=== PATIENT | male | born 1950 | race Hispanic/Latino ===

== ENCOUNTER 2017-08-24 18:54 | Observation (INO) | payer MEDICARE ==
[~2017-08-24 18:54] MED LIST: ISOVUE-370 76%-LOCM 1 ML ONE
[2017-08-24 19:53] LABS: Bilirubin Negative (Negative); Blood, Urine Negative (Negative); Glucose, Urine (Dipstick) >=1000 mg/dL (Negative); Ketone, Urine Negative (Negative); Nitrite Negative (Negative); Protein, Urine (Dipstick) Negative (Neg-Trace)
[2017-08-24 19:55] LABS: Bacteria/HPF None Seen HPF (None Seen); Hyaline Casts/LPF 0-3 HYALINE CAST LPF (0-3 Hyaline); RBC/HPF 0-3 HPF (0-3); Squamous Epithelial 0-3 HPF (0-3)
[2017-08-24 19:55] LABS: #Eosinphils 0.1 thou/uL (0.0-0.7); #Lymphocytes 1.7 thou/uL (1.20-3.40); #Monocytes 0.5 thou/uL (0.11-0.59); %Basophils 0.4 % (0.0-1.0); %Eosinophils 1.1 % (0.0-10.0); %Lymphocytes 23.4 % (21.0-51.0); %Monocytes 7.1 % (0.0-10.0); Hematocrit 49.2 % (42.0-52.0); Mean Platelet Volume 6.6 fL (7.4-10.4); Red Blood Cell (RBC) Count 5.12 mill/uL (4.70-6.10); White Blood Cell (WBC) Count 7.4 thou/uL (4.8-10.8)
[2017-08-24 20:20] LABS: ALT (SGPT) 10 U/L (8-55); AST (SGOT) 11 U/L (5-34); Alkaline Phosphatase 118 U/L (40-150); Anion Gap 13 mmol/L (10-20); BUN (Urea Nitrogen) 9 mg/dL (8.4-25.7); Bilirubin, Total 0.5 mg/dL (0.2-1.2); CK (CPK) 83 U/L (30-200); Calc. Creatinine Clearance 0 mL/min (70-130); Calcium 9.1 mg/dL (7.8-10.44); Carbon Dioxide 22 mmol/L (23-31); Chloride 105 mmol/L (98-107); Estimated GFR-MDRD 87; Globulin 2.8 g/dL (2.4-3.5); Lipase 17 U/L (8-78); Protein, Total 6.3 g/dL (5.8-8.1)
[2017-08-24 20:24] LABS: Troponin I 0.035 ng/mL (< 0.028)
--- NOTE | 2017-08-24 20:54 | RAD ---
ONE VIEW CHEST: History: Cough. Comparison: 05-02-17 FINDINGS: Atherosclerosis of the aorta. Normal cardiac silhouette. The pulmonary vessels and hilum are normal. Costophrenic angles are clear. Chronic change in the lung parenchymal noted with subsegmental atele ctasis and scarring. No masses or consolidation. No pneumothorax. Chronic changes to the left should er. IMPRESSION: No acute cardiopulmonary process. POS: DARIA
[2017-08-24] MEDS ORDERED: Ondansetron HCl/PF 4 MG/2 ML Vial IVP PRN ×2 (22:39→23:35)
[2017-08-24] MEDS ORDERED: Sodium Chloride 0.9% 1,000 ML IV SCH (22:39)
[2017-08-24] MEDS ORDERED: Acetaminophen 325 MG TAB PO PRN (22:39)
[2017-08-24] MEDS ORDERED: Ondansetron ODT 4 MG TAB SL PRN (22:39)
--- NOTE | 2017-08-24 22:46 | CT ---
NONCONTRAST HEAD CT: History: Dizziness. Patient fell onto his head two weeks ago. Comparison: 06-07-17 Technique: Noncontrast head CT is performed from skull base to skull vertex. FINDINGS: No parenchymal hemorrhage. No extraaxial hematoma. No midline shift. Basilar cisterns are patent. Ag e appropriate brain volume. Cortical ferrera white matter differentiation is preserved. Ventricles and sulci are patent and symmetric. White matter hypodensity due to chronic small vessel ischemic change are noted. Stable gliotic and m alacic change involving the left occipital parietal region. Stable configuration of ventricular system. Atherosclerosis of cavernous carotid arteries and vertebral arteries is noted. Adequate aeration of the sinuses and right mastoid air cells. Stable partial sclerosis of the left m astoid air cells. Intact calvarium. IMPRESSION: No acute intracranial process. POS: DARIA
--- NOTE | 2017-08-24 22:57 | CT ---
ABDOMEN CT WITH CONTRAST PELVIC CT WITH CONTRAST: Comparison: 06-07-17 History: Dizziness, patient fell two weeks ago. Abdominal pain, worsening today. Technique: Abdomen and pelvic CT is performed with IV contrast. Coronal reformatted images are submi tted for interpretation. Oral contrast was not administered. FINDINGS: Abdomen CT: Chronic changes in the lung bases. Nonspecific 5 mm nodule in the left lower lobe, possi adarsh present on the examination from May 2017. Nodule better appreciated on the current exam. Hear t size is within normal limits. No significant pericardial fluid. Mild elongation of the descending thoracic aorta and abdominal aorta. There is atherosclerosis. No aneurysm. No periaortic fat strandi ng. Symmetric attenuation of the psoas muscles. No gastrohepatic retrocrural or pericardial lymphadenopathy. No mesenteric mass, lymphadenopathy, free air or free fluid. Gallbladder is surgically absent. Visualized portal vein is patent. Note, evaluation is limited in arterial phase imaging. Liver, spleen, pancreas, and adrenal glands have essentially appropriate arterial phase imaging. Sym metric enhancement of the kidneys. Bilaterally, no obstructive uropathy. No enteric mass, lymphadenopathy, free air or free fluid. Limited evaluation of the alimentary canal due to lack of contrast. There are a few nonspecific flui d filled loops of small bowel with mild mucosal prominence. No definite evidence of bowel obstructio n. Fecalization of the terminal ileum likely due to incompetent ileocecal valve. No associated dilat ation. Appendix has a normal appearance. Scattered fecal material in a nondistended, nondilated colo n. Occasional diverticulum. No evidence of diverticulitis. Pelvic CT: No mass, lymphadenopathy, free air or free fluid. Urinary bladder is unremarkable. Prior fusion hardware is noted. There are no lytic or blastic lesions in the osseous structures. Bone graft site in the right iliac wing is noted. Visualized bony thoracic fractures are not appreci ated. IMPRESSION: 1. No acute abnormality in the abdomen or pelvis. 2. 5 mm nodule in the left lower lobe, better demonstrated on the current examination. POS: DARIA
[2017-08-24 23:13] LABS: Troponin I 0.049 ng/mL (< 0.028)
[2017-08-24 23:21] VITALS: BMI 24.0
[2017-08-24] MEDS ORDERED: Temazepam 15 MG CAP PO PRN (23:35)
[2017-08-24] MEDS ORDERED: Ondansetron ODT 4 MG TAB PO PRN (23:35)
[2017-08-25 02:34] LABS: Hematocrit 46.2 % (42.0-52.0); Mean Platelet Volume 6.6 fL (7.4-10.4); Neutrophil 60 % (42-75); Reactive Lymphocytes 4 % (0-10); Red Blood Cell (RBC) Count 4.82 mill/uL (4.70-6.10); White Blood Cell (WBC) Count 6.3 thou/uL (4.8-10.8)
[2017-08-25 02:44] LABS: Troponin I 0.064 ng/mL (< 0.028)
[2017-08-25 02:55] LABS: Anion Gap 11 mmol/L (10-20); BUN (Urea Nitrogen) 9 mg/dL (8.4-25.7); Calc. Creatinine Clearance 82 mL/min (70-130); Calcium 8.9 mg/dL (7.8-10.44); Carbon Dioxide 23 mmol/L (23-31); Chloride 106 mmol/L (98-107); Estimated GFR-MDRD 87; Magnesium 1.5 mg/dL (1.6-2.6)
--- NOTE | 2017-08-25 03:01 | HP ---
DATE OF ADMISSION: 08/24/2017 PRIMARY CARE PROVIDER: Brandi Leiva DO. CHIEF COMPLAINT: Dizziness. HISTORY OF PRESENT ILLNESS: This is a 67-year-old male who presents to [facility] complaining of dizziness, which began approximately 1830 hours on the date of admissi on. The patient states that he was sitting up in bed when he felt like he was listing or falling to the right. The patient states he had some dizziness and vertigo sensations at the time and had rep ositioned himself as he has undergone a right qonug-kwk-jxwi amputation in 2013. The patient states that he has limited mobility, but does use a prosthesis device with a rolling walker or wheelchair for long distance ambulation. The patient relates a recent history of falls with closed head injury requiring admission as recently as 04/2017. The patient sustained an acute intraparenchymal hemorr manjinder due to the closed head injury; however, no specific intervention was recommended. The patient was observed and released home. The patient also underwent evaluation in late 02/2017 for chest stephanie n, undergoing a Cardiolite stress test showing negative findings. The patient also had complained o f abdominal pain during this admission, undergoing upper endoscopy and colonoscopy without specific findings. The patient denies any specific unilateral pain, difficulty with speech or visual disturb ance. The patient denied any specific change to his chronic medication regimen and states he has be en compliant. The patient does states he state that he lives independently, receiving a nursing vis it approximately one time per week. The patient denies undergoing any recent physical therapy. In the emergency room, the patient underwent extensive evaluation including CT of the abdomen and pelvi s showing no acute intraabdominal process. Incidental 5 mm nodule in the left lower lobe noted. Po rtable chest x-ray showed no acute infiltrates and CT of the brain showed no acute intracranial proc ess. The patient was referred to the Hospitalist Service for evaluation. PAST MEDICAL HISTORY: 1. Sensorineural deafness. 2. Peripheral vascular disease. 3. History of gangrene of the right lower extremity status post right fjqyw-ndo-yvlr amputation. 4. Hypertension. 5. Gastroesophageal reflux disease. 6. Diabetes mellitus, type 2. 7. Benign prostatic hyperplasia. 8. Chronic low back pain. 9. History of falls. 10. Status post intracranial hemorrhage, status post mechanical fall with closed head injury. 11. Anxiety/depression. 12. History of biliary pancreatitis. PAST SURGICAL HISTORY: 1. Status post right irnjj-qax-mlqo amputation in 2014. 2. Status post back surgery x4, L5-S1 distribution. 3. Status post cholecystectomy. 4. Chronic abdominal pain. 5. Status post cerebrovascular accident. CURRENT MEDICATIONS: 1. Atenolol 25 mg one tab p.o. daily. 2. Lipitor 20 mg one tablet p.o. daily. 3. NPH insulin 14 units subcutaneously b.i.d. 4. Lisinopril 5 mg 1 tablet p.o. daily. 5. Sertraline 100 mg 1 tab p.o. daily. 6. Flomax 0.4 mg p.o. daily. 7. Metformin 1000 mg p.o. daily. ALLERGIES: No known drug allergies. FAMILY HISTORY: No inheritable diseases per patient report. SOCIAL HISTORY: The patient lives independently in the [place], [place] area. Receives home visitin g nurse approximately one time per week. Ambulatory with use of a rolling walker and right lower ex tremity prosthesis. Long distance mobilization with wheelchair. No alcohol or illicit drug use. S mokes up to half a pack of cigarettes daily. REVIEW OF SYSTEMS: The following complete review of systems was negative, unless otherwise mentione d in the HPI or below: Constitutional: Weight loss or gain, ability to conduct usual activities. Skin: Rash, itching. Eyes: Double vision, pain. ENT/Mouth: Nose bleeding, neck stiffness, pain, tenderness. Cardiovascular: Palpitations, dyspnea on exertion, orthopnea. Respiratory: Shortness of breath, wheezing, cough, hemoptysis, fever or night sweats. Gastrointestinal: Poor appetite, abdominal pain, heartburn, nausea, vomiting, constipation, or diar coby. Genitourinary: Urgency, frequency, dysuria, nocturia. Musculoskeletal: Pain, swelling. Neurologic/Psychiatric: Anxiety, depression. Allergy/Immunologic: Skin rash, bleeding tendency. PHYSICAL EXAMINATION: VITAL SIGNS: On admission, blood pressure 108/64, pulse 56, respiratory rate 18, temperature 97.9 d egrees Fahrenheit, O2 saturation is 97% on room air. GENERAL APPEARANCE: This is a 67-year-old male, alert and oriented x3, pleasant, in no acute distre ss. HEENT: Pupils are equal, round, and reactive to light and accommodation. Extraocular muscles are i ntact. No scleral icterus, no conjunctival injection. Nares patent. OP is clear. Teeth in fair r epair. NECK: Supple, no cervical adenopathy, no thyromegaly, no carotid bruits, no JVD appreciated. Cervi roberto spine with full active and passive range of motion. CHEST: Lungs are clear to auscultation bilaterally. CARDIOVASCULAR: S1, S2, without noted murmur. ABDOMEN: Rounded, soft, nontender, nondistended. Bowel sounds are positive in all four quadrants. There is no hepatosplenomegaly, no abdominal bruits, no rebound or guarding appreciated. EXTREMITIES: Right bqaiv-lgj-gxki amputation with stump intact. Left lower extremity with pulses p alpable distally at the dorsalis pedis, posterior tibial, and popliteal arteries bilaterally. Capil glendy refill less than 2 seconds. NEUROLOGIC: Cranial nerves II-XII are grossly intact. Intention tremor noted on the right hand. N o other gross focal deficits appreciated. The patient not observed ambulatory during this exam. PERTINENT LABORATORY AND X-RAY FINDINGS: Sodium 136, potassium 3.9, chloride 105, CO2 of 22, BUN 9, creatinine 0.87, estimated GFR of 87, glucose 206, calcium 9.1. LFTs within normal limits. Tropon in I ranged between 0.035 to 0.049, albumin 3.5, lipase 17. CBC showed a white blood cell count of 7.4, hemoglobin 16.6, hematocrit 49.2, MCV at 96, platelet count 143 with normal differential. Urin alysis shows greater than 1000 glucose, positive leukocyte esterase with 7-10 wbc's per high power f ield. CT of the abdomen and pelvis dated 08/24/2017 showed no acute intraabdominal process. A 5-mm nodule in the left lower lobe incidental finding. Portable chest x-ray dated 08/24/2017 showed no acute cardiopulmonary process. CT of the brain without contrast dated 08/24/2017 showed no acute in tracranial process. EKG dated 08/24/2017 by my interpretation shows sinus mechanism with heart rate s in the 60s. Normal R-wave progression noted in the precordial leads. Left axis deviation noted. No acute ST-T wave changes appreciated. ASSESSMENT AND PLAN: 1. Question of vertigo. The patient will be placed on observation status with telemetry. Exact et iology unclear. Current vital signs with mild hypotension. We will continue to monitor blood press ure and heart rate trend. Screening metabolic workup was essentially unrevealing except for mild el evated troponin I. We will obtain PT evaluation in the a.m. Check carotid Doppler study in the a.m . 2. Question of hypotension. We will hold home antihypertensive regimen and monitor clinical respon se. 3. Diabetes mellitus, type 2, insulin requiring. Continue serial Accu-Cheks a.c. and at bedtime. Insulin sliding scale for reflexive coverage. Serial Accu-Cheks. ADA diet. 4. Abdominal pain. Appears chronic with CT of the abdomen and pelvis, unrevealing. Continue sympt omatic and supportive management. Hold metformin. 5. Elevated troponin I. Suspect demand ischemia with review of the electronic medical record showi ng elevated troponin I in 02/2017. The patient underwent Cardiolite stress testing in 03/11/2017 sh owing no acute infarct or ischemia. Calculated ejection fraction of 50%. 6. Prophylaxis. Sequential compression devices while in bed. General fall precautions. PT evalua tion pending. Pepcid 20 mg p.o. b.i.d. 7. Code status is FULL. Surrogate medical decision maker is patient's sister.
[2017-08-25] MEDS: Tamsulosin HCl 0.4 MG CAP PO SCH (08:21)
[2017-08-25] MEDS: Famotidine 20 MG TAB PO SCH ×2 (08:21→20:01)
[2017-08-25] MEDS: Acetaminophen 500 MG TAB PO PRN ×2 (08:23→14:04)
--- NOTE | 2017-08-25 08:31 | ULT ---
CAROTID ARTERIAL DOPPLER ULTRASOUND: DATE: 08/25/17. COMPARISON: None. HISTORY: Vertigo, assess for carotid arterial disease. TECHNIQUE: Multiplanar, ferrera scale, sonographic imaging of the arterial structures of the neck obtained with co ella flow and spectral analysis. FINDINGS: There is prominent multifocal calcified plaque seen throughout the imaged CCA, ICA, and ECA bilatera lly. VESSEL PSV(CM/S) EDV(CM/S) Right CCA 87 16 Right ICA 90 19 Right ECA 96 16 Left CCA 52 9 Left ICA 92 20 Left ECA 150 22 ICA/CCA ratio is 1.0 on the right and 1.8 on the left. Antegrade blood flow is noted within the carotid and vertebral system bilaterally. IMPRESSION: Extensive multifocal calcified plaque is seen throughout the carotid arterial structures bilaterally . No elevated velocities are documented within either common carotid artery or internal carotid art gian. POS: DARIA
[2017-08-25] MEDS: Insulin NPH/Reg Insulin Hm 300 UNITS/3 ML VIAL SC SCH ×2 (09:09→19:45)
[2017-08-25] MEDS ORDERED: cefTRIAXone\\ROCEPHIN 1 GM in Sodium Chloride 0.9% 100 ML IVPB SCH (10:30)
[2017-08-25] MEDS ORDERED: Metoprolol Tartrate 25 MG TAB PO SCH (11:00)
[2017-08-25] MEDS ORDERED: Atorvastatin Calcium 20 MG TAB PO SCH (11:00)
[2017-08-25] MEDS ORDERED: Nystatin Powder 15 GM BOT TOP SCH (11:00)
[2017-08-25] MEDS ORDERED: Fluconazole 100 MG TAB PO SCH (11:00)
[2017-08-25] MEDS ORDERED: Lisinopril 2.5 MG TAB PO SCH (11:00)
[2017-08-25] MEDS: cefTRIAXone\\ROCEPHIN 1 GM, Syringe 0.4 ML in Sterile Water 9.6 ML SLOW IVP SCH (14:05)
--- NOTE | 2017-08-25 14:54 | PDOC.PN ---
- Subjective Encounter Start Date: 08/25/17 Encounter Start Time: 14:52 feels better dizziness better still has rt hand tremor some nausea abd pain better - Objective Resuscitation Status: Resuscitation Status FULL:Full Resuscitation MAR Reviewed: Yes Vital Signs & Weight: Vital Signs (12 hours) Temp Pulse Pulse Resp BP BP BP 08/25/17 11:53 67 151/81 H 08/25/17 10:33 98.1 F 67 20 131/66 08/25/17 10:02 64 131/66 08/25/17 08:00 98.2 F 70 20 08/25/17 07:05 98.2 F 70 20 147/65 H 08/25/17 04:00 98.0 F 62 16 128/70 Pulse Ox Pulse Ox 08/25/17 11:53 08/25/17 10:33 99 08/25/17 10:02 98 08/25/17 08:00 08/25/17 07:05 98 08/25/17 04:00 99 Weight Weight 158 lb I&O: 08/24/17 08/25/17 08/26/17 06:59 06:59 06:59 Intake Total 360 480 Output Total 350 Balance 10 480 Result Diagrams: 08/25/17 02:00 08/25/17 02:00 Additional Labs: Accuchecks 08/25/17 10:35 POC Glucose 230 H Phys Exam - Physical Examination Constitutional: NAD HEENT: PERRLA Neck: no JVD Respiratory: no wheezing Cardiovascular: no significant murmur Gastrointestinal: soft, no distention Musculoskeletal: pulses present rt aka Neurological: normal sensation hard of hearing Psychiatric: A&O x 3 Dx/Plan (1) Dizziness Code(s): R42 - DIZZINESS AND GIDDINESS Status: Acute Comment: r/o cva (2) UTI (urinary tract infection) Status: Acute (3) Tobacco use Code(s): Z72.0 - TOBACCO USE Status: Acute (4) Abdominal pain Code(s): R10.9 - UNSPECIFIED ABDOMINAL PAIN Status: Acute (5) Elevated troponin Code(s): R74.8 - ABNORMAL LEVELS OF OTHER SERUM ENZYMES Status: Acute (6) Nausea & vomiting Code(s): R11.2 - NAUSEA WITH VOMITING, UNSPECIFIED Status: Acute (7) DMII (diabetes mellitus, type 2) Status: Chronic (8) PVD (peripheral vascular disease) Code(s): I73.9 - PERIPHERAL VASCULAR DISEASE, UNSPECIFIED Status: Chronic (9) Sensory hearing loss Code(s): H90.5 - UNSPECIFIED SENSORINEURAL HEARING LOSS Status: Chronic (10) Tremor Code(s): R25.1 - TREMOR, UNSPECIFIED Status: Acute - Plan * f/u ur cul * f/u mri * f/u neuro rec's
[2017-08-25] MEDS ORDERED: Gadobenate Dimeglumine 529 MG/1 ML (20ML VIAL) ONE (15:50)
--- NOTE | 2017-08-25 19:25 | MRI ---
BRAIN MRI: Clinical history: Dizziness, fall. FINDINGS: There is a small recent left cerebellar hemispheric infarction. No mass effect or midline shift. Mil d parenchymal volume loss with compensatory dilatation of the ventricular system present. There is m oderate chronic microvascular ischemic disease. There is susceptibility involving the basal ganglia, left greater than right. There is left occipital encephalomalacia. Multifocal remote bilateral cere bellar hemisphere lacunar infarctions are present. IMPRESSION: 1. Small recent left cerebellar hemispheric infarction superimposed upon multifocal remote bilateral cerebellar hemispheric infarctions. 2. Moderate chronic microvascular ischemic disease, parenchymal volume loss, compensatory dilation o f the ventricular system. 3. Hemosiderin deposition of the basal ganglia, left greater than right. POS: [facility]
--- NOTE | 2017-08-25 19:28 | MRI ---
MR ANGIOGRAM OF THE HEAD: Date: 08-25-17 History: Transient ischemic attack. Technique: Routine noncontrast enhanced MR angiography of the brain obtained with bkof-xr-sumdvb kelsy ging. FINDINGS: The vertebral artery on the right is nonvisualized, presumably secondary to occlusion. The imaged le ft vertebral artery is patent and demonstrates no significant stenosis. The basilar artery is mildly tortuous but patent. The P1 segments are patent bilaterally. The posterior cerebral artery appears patent. There is no sa cular aneurysm involving the posterior circulation. The imaged extracranial ICA is patent bilaterally. The region of the anterior communicating artery is unremarkable. The P1 and M1 segment demonstrate p atency bilaterally as well. Distal MCA and RADHA branches are grossly unremarkable. There is no sacula r aneurysm, high grade stenosis or vascular occlusion involving the anterior circulation. IMPRESSION: Occluded right vertebral artery. POS: DARIA
--- NOTE | 2017-08-25 19:32 | MRI ---
MRA NECK WITH AND WITHOUT CONTRAST AND 3D VOLUME RENDERING: Clinical history: TIA. FINDINGS: The imaged aortic arch is patent. There is conjoined origin of the brachiocephalic trunk and left co mmon carotid artery. The imaged bilateral subclavian arteries are patent. Diffuse small caliber of t he right vertebral artery is most likely congenital in etiology. Dominant left vertebral artery is p atent. No high grade luminal stenosis of either common carotid artery. There is mild luminal attenua tion of the right carotid bulb. There is mild focal narrowing of the proximal aspect of the cervical left ICA. No high grade focal stenosis of the cervical right ICA. IMPRESSION: 1. Mild focal stenosis at the proximal aspect of the cervical left ICA. 2. Diffuse small caliber right vertebral artery, most likely congenital. POS: DARIA
[2017-08-25] MEDS: Nystatin Powder 15 GM BOT TOP SCH (20:00)
[2017-08-25] MEDS: Metoprolol Tartrate 25 MG TAB PO SCH (20:01)
[2017-08-25] MEDS ORDERED: HumaLOG 300 UNITS/3 ML VIAL SC PRN ×2 (23:57)
[2017-08-25] MEDS ORDERED: Dextrose 5% in Water 1,000 ML IV PRN (23:57)
[2017-08-25] MEDS ORDERED: Dextrose 50% Abboject 50 ML SYRINGE IVP PRN (23:57)
[2017-08-26] MEDS: Acetaminophen 500 MG TAB PO PRN ×2 (04:38→11:45)
[2017-08-26] MEDS: Insulin NPH/Reg Insulin Hm 300 UNITS/3 ML VIAL SC SCH ×2 (08:53→18:14)
[2017-08-26] MEDS: Famotidine 20 MG TAB PO SCH ×2 (08:54→19:44)
[2017-08-26] MEDS: Metoprolol Tartrate 25 MG TAB PO SCH ×2 (08:55→19:44)
[2017-08-26] MEDS: Tamsulosin HCl 0.4 MG CAP PO SCH (08:56)
[2017-08-26] MEDS: Nystatin Powder 15 GM BOT TOP SCH ×2 (08:56→19:46)
[2017-08-26] MEDS ORDERED: Fluconazole 100 MG TAB PO SCH (09:00)
[2017-08-26] MEDS ORDERED: Lisinopril 2.5 MG TAB PO SCH (09:00)
[2017-08-26] MEDS ORDERED: Atorvastatin Calcium 20 MG TAB PO SCH (09:00)
--- NOTE | 2017-08-26 09:51 | PDOC.PN ---
- Subjective Encounter Start Date: 08/26/17 Encounter Start Time: 09:49 Patient seen and examined. No new complaints. No overnight events - Objective Resuscitation Status: Resuscitation Status FULL:Full Resuscitation MAR Reviewed: Yes Vital Signs & Weight: Vital Signs (12 hours) Temp Pulse Resp BP BP Pulse Ox 08/26/17 08:55 55 L 08/26/17 07:11 97.6 F 55 L 18 118/67 96 08/26/17 04:38 98.1 F 52 L 16 123/68 96 08/25/17 23:20 98.5 F 55 L 16 103/56 L 96 Weight Weight 155 lb 1.6 oz I&O: 08/25/17 08/26/17 08/27/17 06:59 06:59 06:59 Intake Total 360 1440 Output Total 350 2350 Balance 10 -910 Result Diagrams: 08/25/17 02:00 08/25/17 02:00 Additional Labs: Accuchecks 08/26/17 08/25/17 08/25/17 05:41 20:52 16:42 POC Glucose 137 H 240 H 182 H 08/25/17 10:35 POC Glucose 230 H Phys Exam - Physical Examination Constitutional: NAD HEENT: PERRLA Neck: no JVD Respiratory: no rales Cardiovascular: no significant murmur Gastrointestinal: no distention Musculoskeletal: pulses present rt aka Neurological: normal sensation Psychiatric: A&O x 3 Dx/Plan (1) Dizziness Code(s): R42 - DIZZINESS AND GIDDINESS Status: Acute Comment: mra and mri reviewed recent lt cerebellar infarct noted old cva noted (2) UTI (urinary tract infection) Status: Acute (3) Tobacco use Code(s): Z72.0 - TOBACCO USE Status: Acute Comment: counselled (4) Abdominal pain Code(s): R10.9 - UNSPECIFIED ABDOMINAL PAIN Status: Acute (5) Elevated troponin Code(s): R74.8 - ABNORMAL LEVELS OF OTHER SERUM ENZYMES Status: Acute (6) Nausea & vomiting Code(s): R11.2 - NAUSEA WITH VOMITING, UNSPECIFIED Status: Resolved (7) DMII (diabetes mellitus, type 2) Status: Chronic (8) PVD (peripheral vascular disease) Code(s): I73.9 - PERIPHERAL VASCULAR DISEASE, UNSPECIFIED Status: Chronic (9) Sensory hearing loss Code(s): H90.5 - UNSPECIFIED SENSORINEURAL HEARING LOSS Status: Chronic (10) Tremor Code(s): R25.1 - TREMOR, UNSPECIFIED Status: Acute - Plan * tight control of bp and dm * stop smoking * rehab consult * f/u neuro rec's for antiplatlet therapy
[2017-08-26] MEDS ORDERED: Atorvastatin Calcium 40 MG TAB PO SCH (11:00)
[2017-08-26] MEDS: cefTRIAXone\\ROCEPHIN 1 GM, Syringe 0.4 ML in Sterile Water 9.6 ML SLOW IVP SCH (11:57)
--- NOTE | 2017-08-26 14:12 | DIS ---
DATE OF ADMISSION: 08/24/2017 DATE OF DISCHARGE: 08/26/2017 CONSULTANTS ON THE CASE: Dr. Suazo DIAGNOSES ON DISCHARGE: 1. 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 2. Small recent left cerebellar hemisphere infarction superimposed upon multifocal remote bilateral cerebral hemispheric infarction, giving rise to dizziness, which is resolved. 3. Moderate chronic microvascular ischemic disease, stable. 4. Sensorineural deafness, stable. 5. Peripheral vascular disease, stable, status post right oacxa-jrj-etas amputation, stable. 6. Hypertension, stable. 7. Diabetes mellitus, stable. 8. Gastroesophageal reflux disease, stable. 9. Tobacco abuse. Patient has been counseled. 10. Benign prostatic hypertrophy, stable. 11. Status post intracranial hemorrhage status post fall, stable. 12. Anxiety, depression, stable. DISCHARGE MEDICATIONS: Include aspirin 325 mg p.o. daily, Lipitor 40 mg p.o. daily, Diflucan 100 mg p.o. daily for 5 days, NPH 70/30 insulin 14 units b.i.d., Zestril 2.5 mg p.o. daily, metoprolol 25 mg p.o. b.i.d., Flomax 0.4 mg p.o. daily, metformin 1000 mg p.o. daily. The patient's studies done this hospital stay was carotid Doppler which showed extensive multifocal calcified blocks in the carotid arterial structures bilaterally. CT scan of the abdomen and pelvis which was normal, showed a 5 mm nodule in the left lower lobe. Brain MRI showed a small recent left cerebellar hemispheric infarction superimposed with multifocal remote bilateral cerebellar hemisphe pramod infarction. Brain MRA showed occluded right vertebral artery and neck MRA showed mild focal vee nosis of the proximal aspect of the cervical left ICA. BRIEF HOSPITAL COURSE: This is a 67-year-old pleasant gentleman who came into the hospital with rufina gamboa. Please refer to the admitting physician's H\T\P for further details. Of note, the patient had a negative stress test which was done in 02/2017. He was extensively evaluated with the MRIs an d MRAs to the brain and the results have been noted as above. I discussed the case with Dr. Gabriele piña o thinks that the dizziness could have been because of the old injury to the cerebellum, but his los s of balance and falls are due to diabetic neuropathy. He recommended the patient use a wheelchair as much as possible because of the recent cerebellar injury. A rehab consult has been initiated. T he patient will be going to rehab if he has been accepted. Otherwise, he will go home and follow up with PCP and Neurology as an outpatient. The patient has been counseled about tight control of blo od pressure and diabetes and tobacco abuse. The patient right now is medically stable to be dischar [facility] with outpatient follow up with PCP and Neurology. He is asked to come back to the emergency ashely in case symptoms recur. Total time for this discharge took 35 minutes.
[2017-08-26 20:04] VITALS: BP 130/62; TEMP 97.9
[2017-08-26] MEDS ORDERED: Magnesium Oxide 400 MG TAB PO SCH (21:00)
[2017-08-27] MEDS ORDERED: Aspirin 325 mg Enteric Coated Tablet PO SCH (09:00)
[2017-08-27] MEDS ORDERED: Atorvastatin Calcium 40 MG TAB PO SCH (09:00)
--- NOTE | 2017-08-29 16:14 | CON ---
DATE OF CONSULTATION: 08/25/2017 REFERRING PROVIDER: Keegan Banda M.D. REASON FOR CONSULTATION: Dizziness and right hand tremor. HISTORY OF PRESENT ILLNESS: Mr. Elizabeth is a pleasant 67-year-old male who has been consulted for evaluation of dizziness and right hand tremor. The patient reports that yesterday he was sitting in bed when he felt like he was falling toward the right side. The patient said he has had some dizziness and vertigo sensation at that time and had reposition as he was about to fall to the right side; however, he continued to lean toward the right side. He reports that he has had multiple falls over the past few weeks as his balance has been off. He does have history of right above-knee amputation in 2013. He states that since that time while walking with crutches or a walker, he tends to lean more toward the right side and tends to feel like he is going to lose balance. He has had multiple falls since that time which had resulted in multiple injuries. He decided to present to the emergency room yesterday as his symptoms were not improving and he was concerned about having a stroke. He currently denies any headache, chest pain, palpitation, nausea, vomiting, or abdominal pain. He does complain of having numbness in his left foot that goes all the way up just above the knee. He also has numbness and tingling in the left upper extremity that tends to be localized up to the wrist and he denies changes in his bowel or bladder function. PAST MEDICAL HISTORY: Significant for hypertension, diabetes, GERD, history of gangrene of the right lower extremity status post right elfha-bzv-mgkt amputation, peripheral vascular disease, sensorineural deafness, BPH, history of intracranial hemorrhage post-mechanical fall with a closed head injury, anxiety, depression, and history of any biliary pancreatitis. PAST SURGICAL HISTORY: Significant for above the knee amputation, back surgery , cholecystectomy. SOCIAL HISTORY: The patient lives independently in [place], [place]. He denies alcohol use or illicit drug use. He does smoke half pack of cigarettes on a daily basis. FAMILY HISTORY: Noncontributory. CURRENT MEDICATIONS: Please review MAR. ALLERGIES: No known drug allergies. REVIEW OF SYSTEMS: As mentioned above. Otherwise, negative. PHYSICAL EXAMINATION: VITAL SIGNS: Blood pressure of 128/66, pulse of 60, temperature of 98.3, respirations of 16, O2 sats of 98% on room air. GENERAL: Well-developed and well-nourished male in no apparent distress. RESPIRATORY: Clear to auscultation bilaterally. CARDIOVASCULAR: Regular rate and rhythm. NEUROLOGIC: Mental status: The patient is awake, alert, and oriented x3. Speech and language: Fluent speech. Cranial nerves: Pupils are 3 mm and reactive. Visual hall are full to threat. Extraocular muscles are intact. No nystagmus is noted. Face is symmetric. Tongue and uvula are midline. Motor exam showed 5/5 strength in both upper extremities and left lower extremity. He has a right foyfc-nnh-fiyh amputation. Sensory exam showed loss of sensation to light touch, pinprick, temperature, vibration and position in left lower extremity up to the knee, unable to perform on the right lower extremity due to hrhcp-[id number]-[id number] amputation. Bilateral upper extremity showed decreased sensation to light touch, pinprick, and vibration up to the wrist on both sides. Deep tendon reflexes 1+ reflex in both upper extremities and absent in the left lower extremity. Gait and Romberg are not tested. LABORATORY DATA: Reviewed, which included CBC, CMP, and urinalysis which is significant for platelet count of 126, glucose of 219, magnesium 1.5, troponin of 0.064. Otherwise, unremarkable. IMAGING STUDIES: CT head without contrast was reviewed which showed no acute intracranial abnormality. IMPRESSION: 1. Gait abnormality, likely secondary to sensory ataxia. 2. Diabetic polyneuropathy. Mr. Elizabeth is a pleasant 67-year-old male who presented with the episodes of leaning toward the right side and episodes of difficulty with walking and balance and having multiple frequent falls. I have reviewed his CT head, which showed no acute intracranial abnormality. Unfortunately, because of his pacemaker, we are not able to obtain MRI scan of his brain. 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 I have discussed with the patient and explained to him that he needs to avoid using crutches or canes to avoid falls. I do recommend that he uses a wheelchair at all the time to avoid falling down. There is no further neurological workup needed from my standpoint. Patient can be followed with his primary care physician as an outpatient. DESHAUN
--- NOTE | 2017-09-20 15:30 | EKG ---
Test Reason : Blood Pressure : / mmHG Vent. Rate : 067 BPM Atrial Rate : 067 BPM P-R Int : 204 ms QRS Dur : 092 ms QT Int : 388 ms P-R-T Axes : 060 -57 091 degrees QTc Int : 409 ms Normal sinus rhythm with sinus arrhythmia Incomplete right bundle branch block Left anterior fascicular block Nonspecific T wave abnormality Abnormal ECG Confirmed by EVY FREDERICK D.O. ([id number]), clinical editor MERCED LOVE ([id number] on 09/20/2017 3:29:33 PM Referred By: Confirmed By:EVY FREDERICK D.O.
== END 2017-08-26 20:10 ==
LOC: ERS 18:54 → 2SW 21:27
PROVIDERS: ADMIT Family Medicine; ATTEND Family Medicine
DX: E11.40 Type 2 diabetes mellitus with diabetic neuropathy, unspecified (principal); I63.8 Other cerebral infarction; R42 Dizziness and giddiness; I67.82 Cerebral ischemia; H90.5 Unspecified sensorineural hearing loss; I10 Essential (primary) hypertension; K21.9 Gastro-esophageal reflux disease without esophagitis; N40.0 Benign prostatic hyperplasia without lower urinary tract symptoms; F32.9 Major depressive disorder, single episode, unspecified; F41.9 Anxiety disorder, unspecified; R10.9 Unspecified abdominal pain; M54.5 Low back pain; G89.29 Other chronic pain; F17.210 Nicotine dependence, cigarettes, uncomplicated; R74.8 Abnormal levels of other serum enzymes; Z79.82 Long term (current) use of aspirin; Z79.4 Long term (current) use of insulin; Z79.899 Other long term (current) drug therapy; Z90.49 Acquired absence of other specified parts of digestive tract; Z89.611 Acquired absence of right leg above knee; Z98.890 Other specified postprocedural states; Z91.81 History of falling; Z86.73 Personal history of transient ischemic attack (TIA), and cerebral infarction without residual deficits
CPT/HCPCS: 70450; 70544; 70549; 70551; 71010; 74177; 80048; 80053; 80061; 82550; 82553; 82962 ×2; 83690; 83735; 84443; 84484 ×3; 85007; 85025; 85027; 87086; 93005; 93880; 94760; 96360; 96361; 97139 ×2; 97530; 99285; G0378; G8978 ×2; G8979 ×2; G8980; 36415; 36416; 81003; 81015; A4216; A9579; J0696

== ENCOUNTER 2017-08-30 02:06 | Inpatient (IN) | payer MEDICARE ==
[2017-08-30 03:12] LABS: Bilirubin Negative (Negative); Blood, Urine Negative (Negative); Glucose, Urine (Dipstick) Negative (Negative); Ketone, Urine Negative (Negative); Nitrite Negative (Negative); Protein, Urine (Dipstick) Negative (Neg-Trace)
[2017-08-30 03:18] LABS: #Lymphocytes 0.9 thou/uL (1.20-3.40); #Monocytes 0.7 thou/uL (0.11-0.59); #Neutrophils 4.4 thou/uL (1.40-6.50); %Basophils 0.5 % (0.0-1.0); %Eosinophils 0.5 % (0.0-10.0); %Lymphocytes 14.1 % (21.0-51.0); %Monocytes 11.3 % (0.0-10.0); Mean Platelet Volume 7.4 fL (7.4-10.4); Red Blood Cell (RBC) Count 4.96 mill/uL (4.70-6.10)
[2017-08-30 03:37] LABS: ALT (SGPT) 12 U/L (8-55); AST (SGOT) 15 U/L (5-34); Alkaline Phosphatase 70 U/L (40-150); Anion Gap 14 mmol/L (10-20); BUN (Urea Nitrogen) 48 mg/dL (8.4-25.7); Bilirubin, Total 0.8 mg/dL (0.2-1.2); CK (CPK) 98 U/L (30-200); Calc. Creatinine Clearance 0 mL/min (70-130); Calcium 8.5 mg/dL (7.8-10.44); Carbon Dioxide 25 mmol/L (23-31); Chloride 99 mmol/L (98-107); Estimated GFR-MDRD 34; Globulin 2.5 g/dL (2.4-3.5); Lipase 7 U/L (8-78); Protein, Total 5.8 g/dL (5.8-8.1)
[2017-08-30 03:41] LABS: Troponin I 0.028 ng/mL (< 0.028)
[2017-08-30] MEDS: Sodium Chloride 0.9% 1,000 ML IV SCH ×3 (07:00→18:38)
--- NOTE | 2017-08-30 09:08 | RAD ---
KUB AND LEFT LATERAL DECUBITUS VIEW OF ABDOMEN: Date: 08/30/17 HISTORY: Abdominal pain x3 days. FINDINGS: The bowel gas pattern is nonobstructive. Postop cholecystectomy changes are seen. Postoperative hawkins es of the lower lumbar spine are noted. No definitive renal calculi. There are some more linear calci fications in the left mid abdomen which I do not feel are related to the kidney. On a decubitus view, I do not see any signs of free air. The right costophrenic margin is not entirely included on this l eft lateral decubitus view. If there is a high degree of clinical suspicion of air, repeat exam is re commended. IMPRESSION: 1. Nonobstructive bowel gas pattern. 2. Postoperative changes of the abdomen. No definite acute process. POS: [facility]
[2017-08-30 09:14] VITALS: BMI 23.1
[2017-08-30] MEDS ORDERED: Insulin Regular 300 UNITS/3 ML VIAL SC PRN (10:14)
[2017-08-30] MEDS ORDERED: Dextrose 50% Abboject 50 ML SYRINGE SLOW IVP PRN (10:14)
[2017-08-30] MEDS ORDERED: Dextrose 5% in Water 1,000 ML IV PRN (10:14)
--- NOTE | 2017-08-30 12:52 | CON ---
DATE OF CONSULTATION: 08/30/2017 HISTORY OF PRESENT ILLNESS: Mr. Elizabeth is a 67-year-old male with known history of hypertens ion, status post CVA and we are being consulted for his acute kidney injury. He came in with nausea, diarrhea, and some degree of vomiting. He was found to have an acute kidney injury. Empiric volume repletion is being done. There is already slight improvement in the renal function. REVIEW OF SYSTEMS: No chest pain, no fever or chills, no generalized weakness, no diplopia. No eye redness, no epistaxis, no chest pain, no shortness of breath, no cough, no fever or chills. Positive for diarrhea and vomiting. Decreased p.o. intake. No syncopal episode, no gross hematuria, no dysu dedrick, no urinary frequency. Occasional dizziness. PAST MEDICAL HISTORY: Status post CVA - x7, history of resting tremor right hand, history of hyperte nsion, type 2 diabetes mellitus. PAST SURGICAL HISTORY: 1. Status post right AKA. 2. Status post back surgery. 3. Status post cholecystectomy. SOCIAL HISTORY: Currently, the patient is not smoking. The patient lives alone, lives in [place]. Two children. 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 Education: 2 years college. Currently, no smok ing, no alcohol intake, no IV drug abuse. ALLERGIES: None. TRAUMA: None. IMMUNIZATIONS: Up to date. HOSPITALIZATIONS: Please see past medical history. FAMILY HISTORY: No family history of ESRD. PHYSICAL EXAMINATION: VITAL SIGNS: Blood pressure is 117/70, heart rate 59, respiratory rate 20, temperature 98.2, pulse o x 95%. GENERAL: Awake, alert, comfortable, not in distress. SKIN: Adequate turgor. HEENT: Pinkish conjunctivae, anicteric sclerae. NECK: No neck mass, no carotid bruits, no JVD. CHEST: No deformities. LUNGS: Clear breath sounds. HEART: Normal sinus rhythm. No murmur, no gallops or rubs. ABDOMEN: Globular, soft, nontender, no masses. EXTREMITIES: No edema. Status post right AKA. NEUROLOGIC: Positive for right hand tremor, no asterixis. Oriented to 3 spheres. Moving all extrem ities. MEDICATIONS: 08/30/2017 - Reviewed. LABORATORY: 08/30/2017 - Sodium 134, potassium 3.6, chloride 99, carbon dioxide 25, BUN 48, creatini ne 1.96, AST 15, ALT 12, lipase 87, albumin 3.3. White count 6, hemoglobin 15.9. Urinalysis relativ sarah benign, no protein, no red cells, no white cells. Further review of his serum creatinine shows the followin08/29/2017 creatinine was noted at 2.28. 08/27/2017 - creatinine 0.83. ASSESSMENT AND PLAN: Acute kidney injury. This is most likely hemodynamically mediated renal dysfun ction secondary to his diarrhea and vomiting. I agree with empiric volume repletion. No indication for any dialytic intervention. I anticipate the renal function to further improve with the current I V hydration. Thank you for the consult. We will continue to follow.
--- NOTE | 2017-08-30 13:22 | HP ---
HISTORY OF PRESENT ILLNESS: Mr. Elizabeth is a 67 years old male. He [facility] ago because of dizziness and multiple falls. At that time, it was felt that his sympt oms were due to cerebellar infarct. He was discharged to rehab. For the last 2 days, he has been ex perimenting some abdominal pain, diarrhea, vomiting and he was transferred to this facility for evalu ation and management. He denies any fever, denies any dysuria. PAST MEDICAL HISTORY: Remarkable for hypertension, diabetes mellitus, multiple CVAs and peripheral v ascular disease. He denies any history of chronic kidney disease. PAST SURGICAL HISTORY: Remarkable for lower back laminectomy, cholecystectomy, right bkiot-vcy-zfzn amputation and some eye surgery. ALLERGIES: He does not have any known allergy. SOCIAL HISTORY: He has a [id number] history heart of cigarette smoking. He denies EtOH abuse. He denies drug abuse. FAMILY HISTORY: Reviewed and is remarkable for hypertension, diabetes mellitus and also heart diseas e. MEDICATIONS: Prior to admission, he was on aspirin 81 mg daily, Lipitor 40 mg daily, fluconazole 100 mg daily, NPH insulin 14 units b.i.d., lisinopril 2.5 mg daily, Imodium 2 mg p.r.n., metformin 1000 mg daily, metoprolol tartrate 25 mg b.i.d., sertraline 150 mg daily and tamsulosin 0.4 mg daily. REVIEW OF SYSTEMS: Constitutional: He denies any fever, denies any weakness. HEENT: Admits to deya bowers. No ocular pain, no sore throat, no rhinorrhea, no earache, no epistaxis. Neck: No neck pain , no neck stiffness. Cardiovascular: No shortness of breath, no chest pain. Pulmonary: Admits to productive cough. Gastrointestinal: Admits to vomiting, diarrhea and abdominal pain. Genitourinary : No dysuria, no hematuria. Endocrinology: No heat or cold intolerance. No polyuria, polydipsia o r polyphagia. Musculoskeletal: Admits. He denies any arthralgia. He has some tingling involving h is left hand. Skin: No rash, no itching. No hayfever. Hematology: No abnormal bleeding, no ecchy mosis. Lymphatics: No palpable lymphadenopathy, no painful lymphadenopathy. Psychiatric: No anxie ty. He denies depression. Neurologic: He denies seizure. He has some tremor involving the right a nd also some tingling involving the left arm. He moves all extremities. PHYSICAL EXAMINATION: GENERAL: He is alert, oriented, in no distress. LATEST VITAL SIGNS: Shows a temperature of 98.4, pulse rate 59, respiratory rate 20 and blood pressu re 117/70. HEENT: His head is normocephalic and atraumatic. Both his pupils are equal and reactive. Ears and nose are normal. Oral mucosa is moist. He has poor denture. Pharyngeal area is clear. NECK: Supple. There is no distention of the jugular vein. No lymphadenopathy felt. Thyroid gland not palpable. There is no carotid bruit. CHEST: Symmetrical with regular S1 and S2. LUNGS: Clear. ABDOMEN: Soft. Bowel sounds are heard. We could not appreciate any organomegaly. There is no foca l area of tenderness. EXTREMITIES: Show no edema. He is status post right below knee amputation. NEUROLOGIC: Neurologically, he moves all extremities. LABORATORY DATA: His chemistry and electrolytes done today showed a sodium of 134, potassium of 3.6, chloride 99, CO2 of 25, BUN 48, creatinine 1.96, glucose 67, calcium 8.5, total bilirubin 0.8, AST 1 5, ALT 12, alkaline phosphatase 70, CPK 98, troponin 0.028, serum protein 5.8, albumin 3.3, globulin 2.5. Lipase is the history of BUN was 16 and creatinine 0.99 on 06/07/2017. CBC done today shows a WBC of 6, hemoglobin of 15.9, hematocrit of 48, MCV of 96.7 and platelet 105. X-RAY FINDINGS: Abdomen x-ray was reported to show nonobstructive bowel gas pattern. Postoperative changes of the abdomen; no acute process noticed. Chest x-ray is not yet available at this time. ASSESSMENT AND PLAN: This is a 67 years old man with history of hypertension, diabetes tariq litus, previous cerebrovascular accident and peripheral vascular disease who was admitted with abdomi nal pain, diarrhea, vomiting, noticed to have elevated BUN and creatinine. At this time, etiology of his gastroenteritis is not clear. We will check his stools for C. diff. We will continue hydration as patient is very dehydrated at this time and we suspect his acute kidney injury is most likely due to ischemic acute tubular necrosis associated with him. He had been associated with dehydration. W e will also check a chest x-ray to exclude pneumonia. Patient is being admitted to the medical floor . Further evaluation and management will depend on the course of his hospitalization and his respons e to therapy.
--- NOTE | 2017-08-30 14:42 | RAD ---
2 VIEWS CHEST: Date: 08/30/17 PROVIDED CLINICAL HISTORY: Difficulty breathing. FINDINGS: Comparison made with study dated 08/24/17. Cardiac and mediastinal silhouette is unchanged in appearance. Vascular calcification involves the ao rtic arch. Prominence of the left hilar region appears similar to the prior study. Parenchymal scarri ng is again seen involving the right parahilar region. No focal consolidation, pleural fluid, or pneu mothorax apparent. Pulmonary vasculature appears radiographically normal. IMPRESSION: No evidence for an acute cardiopulmonary process. POS: [facility]
[2017-08-30] MEDS ORDERED: Ondansetron HCl/PF 4 MG/2 ML Vial SLOW IVP PRN (16:30)
[2017-08-30] MEDS: Insulin NPH/Reg Insulin Hm 300 UNITS/3 ML VIAL SC SCH (20:19)
[2017-08-31] MEDS: Sodium Chloride 0.9% 1,000 ML IV SCH ×3 (03:16→20:11)
[2017-08-31] MEDS: Fluconazole 100 MG TAB PO SCH (08:59)
[2017-08-31] MEDS: Aspirin 325 mg Enteric Coated Tablet PO SCH (08:59)
[2017-08-31] MEDS: Tamsulosin HCl 0.4 MG CAP PO SCH (08:59)
[2017-08-31] MEDS: Atorvastatin Calcium 40 MG TAB PO SCH (08:59)
[2017-08-31] MEDS: Insulin NPH/Reg Insulin Hm 300 UNITS/3 ML VIAL SC SCH ×2 (09:04→20:07)
[2017-08-31] MEDS: Metoprolol Tartrate 25 MG TAB PO SCH ×2 (09:04→20:08)
--- NOTE | 2017-08-31 09:04 | PDOC.PN ---
- Subjective Encounter Start Date: 08/31/17 Encounter Start Time: 09:03 Mr. Elizabeth was seen today in follow-up of diarrhea. He says he feel " much better" today than he did yesterday. He has not had any diarrhea today. He has a little lower abdominal pain, but otherwise ok. - Objective Resuscitation Status: Resuscitation Status FULL:Full Resuscitation MAR Reviewed: Yes Vital Signs & Weight: Vital Signs (12 hours) Temp Pulse Resp BP Pulse Ox 08/31/17 08:00 98.3 F 67 18 155/89 H 97 08/31/17 04:35 97.9 F 62 18 131/73 97 08/31/17 00:07 97.8 F 53 L 18 126/76 98 Weight Weight 152 lb 1.6 oz I&O: 08/30/17 08/31/17 09/01/17 06:59 06:59 06:59 Intake Total 3380 Output Total 2420 Balance 960 Result Diagrams: 08/30/17 03:07 08/30/17 03:07 Additional Labs: Accuchecks 08/31/17 08/30/17 08/30/17 04:47 19:24 16:40 POC Glucose 129 H 122 H 154 H 08/30/17 10:52 POC Glucose 139 H Phys Exam - Physical Examination HEENT: PERRLA Respiratory: no wheezing, no rales, no rhonchi, clear to auscultation bilateral Cardiovascular: RRR, no significant murmur Gastrointestinal: soft, non-tender, positive bowel sounds Musculoskeletal: no edema Dx/Plan (1) Gastroenteritis and colitis, viral Code(s): A08.4 - VIRAL INTESTINAL INFECTION, UNSPECIFIED Status: Acute (2) Cerebral vascular accident Code(s): I63.9 - CEREBRAL INFARCTION, UNSPECIFIED Status: Acute (3) DMII (diabetes mellitus, type 2) Status: Chronic (4) HTN (hypertension) Code(s): I10 - ESSENTIAL (PRIMARY) HYPERTENSION Status: Chronic (5) PVD (peripheral vascular disease) Code(s): I73.9 - PERIPHERAL VASCULAR DISEASE, UNSPECIFIED Status: Chronic - Plan * Diarrhea- it appears to have resolved- C. Diff was negative. Will monitor over night, and if this does not recur then can transfer back to Rehab * HTN- Stable- continue his home medications * DM- blood glucose is also stable * Acute renal failure- likely due to volume depletion ( from diarrhea)- will repeat his BMP today and tomorrow, continue hydration.
[2017-08-31 09:53] LABS: Anion Gap 9 mmol/L (10-20); BUN (Urea Nitrogen) 14 mg/dL (8.4-25.7); Calc. Creatinine Clearance 76 mL/min (70-130); Calcium 9.3 mg/dL (7.8-10.44); Carbon Dioxide 25 mmol/L (23-31); Chloride 105 mmol/L (98-107); Estimated GFR-MDRD 83
[2017-08-31] MEDS ORDERED: Acetaminophen 325 MG TAB PO PRN (11:36)
[2017-08-31] MEDS ORDERED: Mag-Al 1200 mg/1200 mg/30 ML UDCUP PO PRN (11:36)
[2017-08-31] MEDS: Famotidine 20 MG TAB PO PRN (11:46)
--- NOTE | 2017-08-31 12:01 | PRG ---
DATE OF SERVICE: 08/31/2017 RENAL MEDICINE SUBJECTIVE: Mr. Elizabeth is a 67-year-old white male who was seen for an acute kidney injury that was h emodynamically mediated renal dysfunction secondary to his diarrhea. His diarrhea is much improved. He was given empiric volume repletion. This morning, he is feeling better. He denies any chest stephanie n or shortness of breath. PHYSICAL EXAMINATION: VITAL SIGNS: Blood pressure 155/89, heart rate 67, respiratory rate 18, temperature 98.3, pulse ox 9 7%. GENERAL: Awake, alert, supine, comfortable. SKIN: Adequate turgor. HEENT: Pinkish conjunctivae, anicteric sclerae. NECK: No neck mass, no carotid bruits, no JVD. CHEST: No deformities. LUNGS: Clear breath sounds. No wheezing, no crackles. HEART: Normal sinus rhythm. No murmur, no gallops, no rubs. ABDOMEN: Globular, soft, nontender, no masses. EXTREMITIES: Status post right AKA. Left leg, no edema. MEDICATIONS: Medications of 08/31/2017 was reviewed. LABORATORY DATA: Laboratories of 08/31/2017; sodium 135, potassium 4.3, chloride 105, carbon dioxide 25, BUN 14, creatinine 0.91, glucose 128, and calcium 9.3. Urinalysis benign, no evidence of ATN in the absence of pigmented granular casts. ASSESSMENT AND PLAN: Acute kidney injury - hemodynamically mediated renal dysfunction, much improved . Continue supportive care. Continue to hold off any JOAQUIM inhibitors or diuretics for the moment wit h this patient. Due to the much improved renal dysfunction and improved p.o. intake, we will discont inue IV fluid. Will be signing off. Please recall if needed.
[2017-09-01 04:52] LABS: Anion Gap 10 mmol/L (10-20); BUN (Urea Nitrogen) 11 mg/dL (8.4-25.7); Calc. Creatinine Clearance 78 mL/min (70-130); Calcium 9.3 mg/dL (7.8-10.44); Carbon Dioxide 25 mmol/L (23-31); Chloride 106 mmol/L (98-107); Estimated GFR-MDRD 86
[2017-09-01] MEDS: Sodium Chloride 0.9% 1,000 ML IV SCH (05:25)
[2017-09-01] MEDS: Aspirin 325 mg Enteric Coated Tablet PO SCH (08:57)
[2017-09-01] MEDS: Atorvastatin Calcium 40 MG TAB PO SCH (08:58)
[2017-09-01] MEDS: Fluconazole 100 MG TAB PO SCH (08:58)
[2017-09-01] MEDS: Tamsulosin HCl 0.4 MG CAP PO SCH (08:58)
[2017-09-01] MEDS: Insulin NPH/Reg Insulin Hm 300 UNITS/3 ML VIAL SC SCH (08:58)
[2017-09-01] MEDS: Metoprolol Tartrate 25 MG TAB PO SCH (09:01)
[2017-09-01] MEDS: Famotidine 20 MG TAB PO PRN (10:07)
--- NOTE | 2017-09-01 14:31 | PDOC.PN ---
- Subjective Encounter Start Date: 09/01/17 Encounter Start Time: 14:29 Mr. Elizabeth was seen today in follow-up for acute renal failure. He is concerned that he hasn't had a bowel movement, but denies abdominal pain. He also says his left arm feel numb on the dorsal surface from his finger tips to the elbow. He does not have any weakness. He has noted this for about 2-3 days now. He also admits to some neck pain as well. - Objective Resuscitation Status: Resuscitation Status FULL:Full Resuscitation MAR Reviewed: Yes Vital Signs & Weight: Vital Signs (12 hours) Temp Pulse Resp BP Pulse Ox 09/01/17 12:53 98.4 F 67 20 123/68 99 09/01/17 08:58 97.8 F 56 L 20 139/75 100 09/01/17 08:00 97.8 F 56 L 20 Weight Admit Weight 152 lb 1.6 oz Weight 152 lb 1.6 oz I&O: 08/31/17 09/01/17 09/02/17 06:59 06:59 06:59 Intake Total 3380 4220 240 Output Total 2420 2660 Balance 960 1560 240 Result Diagrams: 08/30/17 03:07 09/01/17 03:58 Additional Labs: Accuchecks 09/01/17 09/01/17 08/31/17 11:00 05:24 20:06 POC Glucose 106 116 H 176 H 08/31/17 15:58 POC Glucose 106 Phys Exam - Physical Examination HEENT: PERRLA Respiratory: no wheezing, no rales, no rhonchi, clear to auscultation bilateral Cardiovascular: RRR, no significant murmur Gastrointestinal: soft, non-tender, positive bowel sounds Musculoskeletal: no edema Neurological: non-focal Muscle strength is 5/5 in both extremities 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 Dx/Plan (1) Gastroenteritis and colitis, viral Code(s): A08.4 - VIRAL INTESTINAL INFECTION, UNSPECIFIED Status: Acute (2) Cerebral vascular accident Code(s): I63.9 - CEREBRAL INFARCTION, UNSPECIFIED Status: Acute (3) DMII (diabetes mellitus, type 2) Status: Chronic (4) HTN (hypertension) Code(s): I10 - ESSENTIAL (PRIMARY) HYPERTENSION Status: Chronic (5) PVD (peripheral vascular disease) Code(s): I73.9 - PERIPHERAL VASCULAR DISEASE, UNSPECIFIED Status: Chronic - Plan * Gastroenteritis- resolved * Acute renal failure- better * Left arm numbness- suspect cervical radiculaopathy- this should improve with PT * HTN- blood pressure is stable, heart rate is a little slow, so will therefore decrease his dose of metoprolol to 12.5mg twice a day * Stable for transfer to Rehab.
[2017-09-01 16:47] VITALS: BP 118/70; TEMP 98.1
--- NOTE | 2017-09-01 19:14 | DIS ---
DATE OF ADMISSION: 08/30/2017 DATE OF DISCHARGE: 09/01/2017 DISCHARGE DISPOSITION: Home. PRIMARY CARE PHYSICIAN: Dr. Brandi Leiva. DISCHARGE DIAGNOSES: 1. Acute renal failure secondary to volume depletion. 2. Gastroenteritis. 3. Hypertension. 4. Diabetes mellitus type 2. 5. History of cerebrovascular disease. 6. History of peripheral vascular disease. 7. History of cervical radiculopathy. DISCHARGE MEDICATIONS: Metformin was reduced to 12.5 mg twice a day due to bradycardia. He is to co ntinue sertraline 150 mg daily, Flomax 0.4 mg daily, metformin 1000 mg daily, 70/30 insulin 14 units twice a day, Diflucan 100 mg daily, Pepcid 20 mg twice a day, Lipitor 40 mg daily and aspirin 325 mg a day. CODE STATUS: FULL CODE. ALLERGIES: No known drug allergies. HOSPITAL COURSE: Mr. Elizabeth is a very pleasant 67-year-old gentleman who had an episode of severe genevieve rrhea in the rehabilitation center. He was also very weak and lethargic and as a result was transfer red to the emergency room, where he was found to be in acute renal failure, likely as a result of the diarrhea. By the time he was seen on the floor, his diarrhea had actually resolved. He was hydrate d and his renal function returned to normal. His discharge creatinine was approximately 0.88. It wa s also noted that he was relatively bradycardic with a heart rate in the 50s and for this reason his metoprolol was decreased from 25 mg twice a day to 12.5 mg twice a day. The patient also complained of some left arm numbness. However, there was no weakness in the arm. His sr. director strength was intact. His interosseous muscles were intact as well as the strength in his finger, which were tested speci fically. He did complain of some neck pain as well and suspected that this complaint is likely relat ed to a cervical radiculopathy, which should actually improve with physical therapy and rehabilitatio n. Therefore, the patient is clinically stable for transfer back to the [facility].
== END 2017-09-01 16:39 | DRG 684 ==
LOC: ERS 02:06 → T4-A 04:20
PROVIDERS: ADMIT Internal Medicine; ATTEND Internal Medicine
DX: N17.9 Acute kidney failure, unspecified (principal); E11.51 Type 2 diabetes mellitus with diabetic peripheral angiopathy without gangrene; Z89.611 Acquired absence of right leg above knee; A08.4 Viral intestinal infection, unspecified; I10 Essential (primary) hypertension; F17.210 Nicotine dependence, cigarettes, uncomplicated; Z79.82 Long term (current) use of aspirin; Z79.4 Long term (current) use of insulin; E86.0 Dehydration; M54.12 Radiculopathy, cervical region; I69.398 Other sequelae of cerebral infarction
CPT/HCPCS: 36415; 36416; 71020; 74020; 80048; 81003; 82550; 82553; 83690; 84484; 93005; 96360; 96361; A4216; J1815; J2405

== ENCOUNTER 2017-09-23 15:33 | Emergency (ER) | payer MEDICARE ==
[2017-09-23 16:16] LABS: #Eosinphils 0.1 thou/uL (0.0-0.7); #Lymphocytes 1.9 thou/uL (1.20-3.40); #Monocytes 0.5 thou/uL (0.11-0.59); #Neutrophils 4.4 thou/uL (1.40-6.50); %Basophils 0.7 % (0.0-1.0); %Eosinophils 1.8 % (0.0-10.0); %Lymphocytes 27.1 % (21.0-51.0); %Monocytes 7.3 % (0.0-10.0); Hematocrit 53.1 % (42.0-52.0); Mean Platelet Volume 6.5 fL (7.4-10.4); Red Blood Cell (RBC) Count 5.41 mill/uL (4.70-6.10); White Blood Cell (WBC) Count 6.9 thou/uL (4.8-10.8)
[2017-09-23 16:35] LABS: ALT (SGPT) 15 U/L (8-55); AST (SGOT) 16 U/L (5-34); Alkaline Phosphatase 104 U/L (40-150); Anion Gap 12 mmol/L (10-20); BUN (Urea Nitrogen) 11 mg/dL (8.4-25.7); Bilirubin, Total 0.7 mg/dL (0.2-1.2); Calc. Creatinine Clearance 0 mL/min (70-130); Calcium 9.8 mg/dL (7.8-10.44); Carbon Dioxide 27 mmol/L (23-31); Chloride 102 mmol/L (98-107); Estimated GFR-MDRD Greater than 90; Globulin 3.1 g/dL (2.4-3.5); Protein, Total 7.1 g/dL (5.8-8.1)
[2017-09-23 16:39] LABS: Troponin I 0.022 ng/mL (< 0.028)
--- NOTE | 2017-09-23 17:02 | CT ---
HEAD CT NONCONTRAST 09/23/17 COMPARISON: Reference is made to 08/25/17 brain MRI, noncontrast. PROVIDED CLINICAL HISTORY: New onset headache, which is described by the patient as dull in intensity. FINDINGS: Redemonstration of multifocal gliosis of each cerebral hemisphere compatible with moderate chronic mi crovascular ischemic disease. There is no intracranial hemorrhage, mass effect or midline shift. The ventricular system is stable in size. There is decreased pneumatization of left mastoid air cells. Pa rtially imaged soft tissue density of the anteromedial right maxillary sinus is incompletely characte rized, likely relating to mucosal thickening. IMPRESSION: There is no acute intracranial hemorrhage or mass effect. POS: [facility]
[2017-09-23] MEDS ORDERED: diphenhydrAMINE 50 MG/ML VIAL ONE (17:36)
[2017-09-23] MEDS ORDERED: Metoclopramide HCl 10 MG/2 ML VIAL ONE (17:36)
== END 2017-09-23 18:14 | disposition home or self-care (01) ==
LOC: ERS 15:33
DX: R51 Headache (principal); E78.5 Hyperlipidemia, unspecified; E11.9 Type 2 diabetes mellitus without complications; F32.9 Major depressive disorder, single episode, unspecified; I10 Essential (primary) hypertension; F17.210 Nicotine dependence, cigarettes, uncomplicated; Z79.4 Long term (current) use of insulin; Z86.73 Personal history of transient ischemic attack (TIA), and cerebral infarction without residual deficits; Z79.82 Long term (current) use of aspirin; Z79.899 Other long term (current) drug therapy
CPT/HCPCS: 70450; 80053; 82553; 84484; 85025; 93005; 96365; 96375; A4353; J1200; J2765

== ENCOUNTER 2018-03-10 11:59 | Observation (INO) | payer MEDICARE ==
[2018-03-10 12:38] LABS: #Eosinphils 0.1 thou/uL (0.0-0.7); #Lymphocytes 1.8 thou/uL (1.20-3.40); #Monocytes 0.6 thou/uL (0.11-0.59); #Neutrophils 6.6 thou/uL (1.40-6.50); %Basophils 0.2 % (0.0-1.0); %Eosinophils 0.9 % (0.0-10.0); %Monocytes 6.3 % (0.0-10.0); %Neutrophils 72.6 % (42.0-75.0); Mean Corpuscular HGB CONC 34.8 g/dL (32.0-36.0); Mean Corpuscular Hemoglobin 32.8 pg (27.0-31.0); Mean Corpuscular Volume 94.4 fl (80.0-94.0); Mean Platelet Volume 6.9 fL (7.4-10.4); Platelet Count 115 thou/uL (130-400); RBC Distribution Width 12.8 % (11.5-14.5); Red Blood Cell (RBC) Count 5.17 mill/uL (4.70-6.10)
[2018-03-10 13:00] LABS: ALT (SGPT) 16 U/L (8-55); AST (SGOT) 19 U/L (5-34); Alkaline Phosphatase 115 U/L (40-150); Anion Gap 9 mmol/L (10-20); BUN (Urea Nitrogen) 13 mg/dL (8.4-25.7); Bilirubin, Total 0.7 mg/dL (0.2-1.2); CK (CPK) 103 U/L (30-200); Calc. Creatinine Clearance 0 mL/min (70-130); Calcium 9.2 mg/dL (7.8-10.44); Carbon Dioxide 25 mmol/L (23-31); Chloride 103 mmol/L (98-107); Estimated GFR-MDRD 88; Globulin 2.6 g/dL (2.4-3.5); Glucose 146 mg/dL (80-115); Potassium 4.3 mmol/L (3.5-5.1); Protein, Total 6.6 g/dL (5.8-8.1); Sodium 133 mmol/L (136-145)
[2018-03-10 13:07] LABS: Troponin I 0.019 ng/mL (< 0.028)
--- NOTE | 2018-03-10 13:08 | RAD ---
FRONTAL VIEW CHEST: INDICATIONS: Chest pain. FINDINGS: There is no consolidation, effusion, or discrete pneumothorax. The cardiac silhouette is accentuated by the portable technique. Vascular calcification and osseous degenerative change are present. IMPRESSION: No focal consolidation. POS: [facility]
[2018-03-10 14:16] LABS: Bilirubin Small (Negative); Blood, Urine Negative (Negative); Clarity CLEAR (Clear); Glucose, Urine (Dipstick) Negative (Negative); Leukocyte Negative (Negative); Nitrite Negative (Negative); Protein, Urine (Dipstick) Negative (Neg-Trace); Specific Gravity, Urine 1.022 (1.002-1.036); pH, Urine 5.5 (5.0-9.0)
[2018-03-10] MEDS ORDERED: Acetaminophen 500 MG TAB ONE (14:40)
[2018-03-10] MEDS ORDERED: diphenhydrAMINE 50 MG/ML VIAL ONE (14:40)
--- NOTE | 2018-03-10 15:51 | HP ---
PRIMARY CARE PHYSICIAN: Dr. Brandi Leiva. REASON FOR ADMISSION: Chest pain. HISTORY OF PRESENT ILLNESS: A 67-year-old male who has a history of hypertension, dyslipidemia, diabetes type 2, who presented to emergency room for evaluation of chest pain. The patient reports that chest pain started last night. It was substernal in location, constant, about 3/10 in intensity without any specific aggravating or relieving factor, sometimes he noticed pain was radiating on the left side, but he was not sure that was related with chest pain because he is feeling that his left upper extremity is relatively numb all the time from his previous stroke. He denies any palpitation. He was feeling mild dizziness and nausea. He denies any vomiting. He denies any diaphoresis. He denies any palpitation or syncope. He denies any associated shortness of breath. He denies any relation of chest pain with food, respiration or activity. This patient had a stress test done about a year ago, which was normal. The patient continued to smoke about 1 pack per day. He ambulates with a walker and with his prosthetic limb, he has a right above-knee amputation. The patient denies any UTI symptoms. He denies any constipation, diarrhea, melena or hematochezia. He denies any focal motor or sensory symptoms. REVIEW OF SYSTEMS: Please see my HPI for pertinent positive and negative. All other review of systems reviewed and negative except as mentioned in the HPI: Constitutional: Weight loss or gain, ability to conduct usual activities. Skin: Rash, itching. Eyes: Double vision, pain. ENT/Mouth: Nose bleeding, neck stiffness, pain, tenderness. Cardiovascular: Palpitations, dyspnea on exertion, orthopnea. Respiratory: Shortness of breath, wheezing, cough, hemoptysis, fever or night sweats. Gastrointestinal: Poor appetite, abdominal pain, heartburn, nausea, vomiting, constipation, or diarrhea. Genitourinary: Urgency, frequency, dysuria, nocturia. Musculoskeletal: Pain, swelling. Neurologic/Psychiatric: Anxiety, depression. Allergy/Immunologic: Skin rash, bleeding tendency. CURRENT HOME MEDICATIONS: Lipitor 40 mg p.o. daily, metformin 1000 mg p.o. daily, metoprolol tartrate 12.5 mg twice daily, Zoloft 100 mg p.o. daily, aspirin 81 mg p.o. daily, lisinopril 5 mg p.o. daily, Lantus 14 units subcu twice daily. PAST MEDICAL HISTORY: Peripheral vascular disease; history of gangrene of right lower extremity, required right knee amputation; hypertension; gastroesophageal reflux disease; diabetes type 2; sensorineural deafness; benign enlargement of prostate; chronic low back pain; history of frequent fall ; history of intracranial hemorrhage after mechanical fall; history of biliary pancreatitis; chronic abdominal pain; history of cerebrovascular accident. PAST PSYCHIATRIC HISTORY: Anxiety and depression. PAST SURGICAL HISTORY: Right above-knee amputation in 2014, back surgery x4, cholecystectomy. ALLERGIES: No known drug allergy. FAMILY HISTORY: No strong family history of premature coronary artery disease, stroke or cancer. SOCIAL HISTORY: The patient currently lives by himself. He ambulates with a walker with right lower extremity prosthesis. He smokes about 1 pack per day. He denies any alcohol or other illicit drug abuse. EMERGENCY ROOM COURSE: The patient is given Benadryl 25 mg, aspirin 324 mg, Tylenol 1 gram, IV fluid 1 liter. PHYSICAL EXAMINATION: VITAL SIGNS: On arrival, blood pressure 96/53, pulse 55, respiratory rate 18, temperature 97.6, saturation 95% on room air, weight 63.5 kilograms. GENERAL: The patient is currently alert, awake, in no obvious acute distress. HEAD: Normocephalic, atraumatic. EYES: Pupils round, reactive to light. Extraocular muscle intact. ENT: Poor dentition. Moist mucous membranes, no oral lesion, no pharyngeal erythema, no exudate. NECK: Supple, no JVD, no thyromegaly, no carotid bruit, no jugular venous distention. LUNGS: Clear to auscultation without any rhonchi or rales. CARDIAC: S1, S2 regular. No murmur elicited, no gallop, no rub. ABDOMEN: Soft, bowel sounds present, nontender, nondistended. No organomegaly , no mass, no suprapubic tenderness. BACK: Unremarkable, no CVA tenderness. EXTREMITIES: Upper extremity: Passive movement of all joints are normal. Lower extremities: Right above knee amputation. Left lower extremity within normal limits. SKIN: No skin rash. HEMATOLOGICAL: No lymphadenopathy. PSYCHIATRIC: Normal affect. NEUROLOGIC: The patient is alert, oriented x3. Cranial nerves II-XII intact. Motor and sensation within normal limits. No focal neurological deficit noted. SIGNIFICANT LABORATORY DATA: EKG showing sinus bradycardia, left anterior fascicular block. Chest x-ray based on my review, no acute cardiopulmonary process. CBC: WBC 9.0, hemoglobin 17.0, platelet 115. BMP: Sodium 133, potassium 4.3, chloride 103, carbon dioxide 25, anion gap 9, BUN 13, creatinine 0.86, glucose 146, calcium 9.2. LFT: AST 19, ALT 16, alkaline phosphatase 115 , albumin 4.0. CK 103, CK-MB 3.0, troponin I 0.019. Urinalysis normal. Chest x-ray based on my review, no acute cardiopulmonary process. ASSESSMENT AND PLAN: 1. Chest pain. The patient's chest pain description is atypical. His cardiac enzymes are negative. EKG is nonspecific. We will keep this patient in hospital for observation and do serial cardiac enzymes x3. We will monitor on telemetry floor. We will check lipid profile for risk stratification. This patient had a stress test about exactly a year ago, which was normal. At this point, we will only do stress test if his cardiac enzymes are turning abnormal. We will provide nitroglycerin on p.r.n. basis. We will hold on nitropatch because of low blood pressure. We will control his pain with pain medication. 2. Diabetes type 2. We will continue insulin as per sliding scale per protocol. Diabetic diet will be given. We will continue Lantus 14 units subcu b.i.d. 3. Dyslipidemia. Continue Lipitor 40 mg p.o. at bedtime and check lipid profile tomorrow morning. 4. Peripheral vascular disease. Continue aspirin, statin therapy along with beta kana therapy. Metoprolol 12.5 mg twice daily. 5. Hypertension. Currently, the patient has relatively low blood pressure and that is why we will hold on his blood pressure medication including lisinopril and metoprolol if blood pressure does not permit. We will hold this medication if blood pressure is less than 110. 6. Anxiety and depression. We will continue Zoloft 100 mg p.o. daily. 7. Mild thrombocytopenia. We will monitor CBC. 8. Mild hyponatremia. The patient will be given IV fluid and will repeat BMP tomorrow. 9. Deep venous thrombosis prophylaxis not needed because we are expecting discharge in 24 hours. 10. Gastrointestinal prophylaxis, Pepcid 20 mg p.o. b.i.d. 11. Code status: The patient is FULL CODE. The patient does not have any surrogate decision maker. 12. Tobacco abuse disorder. Smoking cessation counseling given. We will offer nicotine patch if needed. Disposition plan based on clinical course, likely within 24 hours. Plan of care discussed with the patient in detail. DESHAUN
[2018-03-10 16:00] LABS: Troponin I 0.013 ng/mL (< 0.028)
[2018-03-10] MEDS ORDERED: Ondansetron ODT 4 MG TAB SL PRN (16:07)
[2018-03-10] MEDS ORDERED: Acetaminophen 325 MG TAB PO PRN ×2 (16:07→16:14)
[2018-03-10] MEDS ORDERED: Ondansetron HCl/PF 4 MG/2 ML Vial IVP PRN ×2 (16:07→16:14)
[2018-03-10] MEDS ORDERED: Ondansetron ODT 4 MG TAB PO PRN (16:14)
[2018-03-10] MEDS ORDERED: Dextrose 5% in Water 1,000 ML IV PRN (16:14)
[2018-03-10] MEDS ORDERED: Senokot 8.6 MG TAB PO PRN (16:14)
[2018-03-10] MEDS ORDERED: Eucerin (Mineral Oil/Petrolatum,White) 30 gm Jar TOP PRN (16:14)
[2018-03-10] MEDS ORDERED: Zolpidem Tartrate 5 MG TAB PO PRN (16:14)
[2018-03-10] MEDS ORDERED: Artificial Tear Sol 15 ML BOT EA EYE PRN (16:14)
[2018-03-10] MEDS ORDERED: Loratadine 10 MG TAB PO PRN (16:14)
[2018-03-10] MEDS ORDERED: hydrALAZINE 20 MG/ML VIAL SLOW IVP PRN (16:14)
[2018-03-10] MEDS ORDERED: Diabetic Tussin 200 MG/10 ML UDCUP PO PRN (16:14)
[2018-03-10] MEDS ORDERED: Nitroglycerin 0.4 MG TAB (25 Tab Bottle) SL PRN (16:14)
[2018-03-10] MEDS ORDERED: Dextrose 50% Abboject 50 ML SYRINGE SLOW IVP PRN (16:14)
[2018-03-10] MEDS ORDERED: Chloraseptic Spray 180 ml Bottle PO PRN (16:14)
[2018-03-10] MEDS ORDERED: Milk Of Magnesia 30 ML UDCUP PO PRN (16:14)
[2018-03-10] MEDS ORDERED: HumaLOG 300 UNITS/3 ML VIAL SC PRN ×2 (16:14)
[2018-03-10] MEDS ORDERED: Sodium Chloride 0.65% Nasal 44 ML BOT EA NARE PRN (16:14)
[2018-03-10] MEDS ORDERED: Loperamide HCl 2 MG CAP PO PRN (16:14)
[2018-03-10] MEDS ORDERED: Mag-Al 1200 mg/1200 mg/30 ML UDCUP PO PRN (16:14)
[2018-03-10 16:17] VITALS: BMI 22.6
[2018-03-10] MEDS: Sodium Chloride 0.9% 1,000 ML IV SCH (17:43)
[2018-03-10] MEDS: HYDROcodone/Acetaminophen 5/325 mg Tablet PO PRN (19:19)
[2018-03-10] MEDS: Famotidine 20 MG TAB PO SCH (20:14)
[2018-03-10] MEDS: Metoprolol Tartrate 25 MG TAB PO SCH (20:14)
[2018-03-10] MEDS ORDERED: Atorvastatin Calcium 40 MG TAB PO SCH (21:00)
[2018-03-10] MEDS ORDERED: Insulin Glargine 14 UNITS in Pre-Filled Syringe 1 EACH SC SCH (21:00)
[2018-03-11] MEDS: Sodium Chloride 0.9% 1,000 ML IV SCH ×2 (03:00→15:49)
[2018-03-11 04:54] LABS: #Eosinphils 0.1 thou/uL (0.0-0.7); #Monocytes 0.5 thou/uL (0.11-0.59); #Neutrophils 3.5 thou/uL (1.40-6.50); %Basophils 0.3 % (0.0-1.0); %Eosinophils 1.9 % (0.0-10.0); %Lymphocytes 32.6 % (21.0-51.0); %Monocytes 8.7 % (0.0-10.0); %Neutrophils 56.5 % (42.0-75.0); Hemoglobin 14.9 g/dL (14.0-18.0); Mean Corpuscular HGB CONC 34.2 g/dL (32.0-36.0); Mean Corpuscular Hemoglobin 32.4 pg (27.0-31.0); Mean Corpuscular Volume 94.7 fl (80.0-94.0); Mean Platelet Volume 6.8 fL (7.4-10.4); Platelet Count 97 thou/uL (130-400); RBC Distribution Width 12.7 % (11.5-14.5); White Blood Cell (WBC) Count 6.2 thou/uL (4.8-10.8)
[2018-03-11 05:08] LABS: Anion Gap 7 mmol/L (10-20); BUN (Urea Nitrogen) 11 mg/dL (8.4-25.7); Calc. Creatinine Clearance 86 mL/min (70-130); Calcium 8.5 mg/dL (7.8-10.44); Carbon Dioxide 27 mmol/L (23-31); Chloride 108 mmol/L (98-107); Cholesterol 59 mg/dl (< 200 Desired); Estimated GFR-MDRD Greater than 90; Glucose 99 mg/dL (80-115); HDL Cholesterol 20 mg/dL (>60 Neg Risk); LDL Cholesterol, Calculated 19 mg/dL; Potassium 4.1 mmol/L (3.5-5.1); Sodium 138 mmol/L (136-145); Triglycerides 98 mg/dL (Less than 150)
[2018-03-11] MEDS: Metoprolol Tartrate 25 MG TAB PO SCH (08:05)
[2018-03-11] MEDS: Famotidine 20 MG TAB PO SCH (08:06)
[2018-03-11] MEDS: HYDROcodone/Acetaminophen 5/325 mg Tablet PO PRN (08:06)
[2018-03-11] MEDS ORDERED: Insulin Glargine 14 UNITS in Pre-Filled Syringe 1 EACH SC SCH (09:00)
[2018-03-11] MEDS ORDERED: Aspirin 325 MG TAB PO SCH (09:00)
--- NOTE | 2018-03-11 10:09 | PDOC.PN ---
- Subjective Encounter Start Date: 03/11/18 Encounter Start Time: 06:50 -: old records requested/rev Patient seen and examined. No new complaints. No overnight events - Objective Resuscitation Status: Resuscitation Status FULL:Full Resuscitation MAR Reviewed: Yes Vital Signs & Weight: Vital Signs (12 hours) Temp Pulse Resp BP BP Pulse Ox 03/11/18 07:52 97.7 F 55 L 16 03/11/18 07:45 97.7 F 55 L 16 118/76 96 03/11/18 07:39 97.2 F L 50 L 18 135/68 95 03/11/18 02:55 97.8 F 49 L 20 124/57 L 95 03/10/18 23:14 97.5 F L 56 L 18 124/60 95 I&O: 03/10/18 03/11/18 03/12/18 06:59 06:59 06:59 Intake Total 1842 Output Total 1575 Balance 267 Result Diagrams: 03/11/18 04:15 03/11/18 04:15 Additional Labs: Accuchecks 03/10/18 03/10/18 20:15 16:50 POC Glucose 111 H 107 EKG Reviewed by me: Yes (nsr) Phys Exam - Physical Examination Constitutional: NAD HEENT: PERRLA, moist MMs, sclera anicteric Neck: no JVD, supple Respiratory: no wheezing, no rales, no rhonchi Cardiovascular: RRR, no significant murmur, no rub Gastrointestinal: soft, non-tender, no distention, positive bowel sounds Musculoskeletal: pulses present right aka Neurological: non-focal, normal sensation, moves all 4 limbs Psychiatric: normal affect, A&O x 3 Skin: no rash, normal turgor Dx/Plan (1) Chest pain in adult Code(s): R07.9 - CHEST PAIN, UNSPECIFIED Status: Acute (2) Anxiety and depression Code(s): F41.9 - ANXIETY DISORDER, UNSPECIFIED; F32.9 - MAJOR DEPRESSIVE DISORDER, SINGLE EPISODE, UNSPECIFIED Status: Chronic (3) BPH (benign prostatic hyperplasia) Code(s): N40.0 - BENIGN PROSTATIC HYPERPLASIA WITHOUT LOWER URINRY TRACT SYMP Status: Chronic (4) Chronic back pain Code(s): M54.9 - DORSALGIA, UNSPECIFIED; G89.29 - OTHER CHRONIC PAIN Status: Chronic (5) DMII (diabetes mellitus, type 2) Status: Chronic (6) GERD (gastroesophageal reflux disease) Code(s): K21.9 - GASTRO-ESOPHAGEAL REFLUX DISEASE WITHOUT ESOPHAGITIS Status: Chronic (7) H/O: CVA (cerebrovascular accident) Code(s): Z86.73 - PRSNL HX OF TIA (TIA), AND CEREB INFRC W/O RESID DEFICITS Status: Chronic (8) HTN (hypertension) Code(s): I10 - ESSENTIAL (PRIMARY) HYPERTENSION Status: Chronic (9) PVD (peripheral vascular disease) Code(s): I73.9 - PERIPHERAL VASCULAR DISEASE, UNSPECIFIED Status: Chronic (10) Sensory hearing loss Code(s): H90.5 - UNSPECIFIED SENSORINEURAL HEARING LOSS Status: Chronic (11) Tobacco use Code(s): Z72.0 - TOBACCO USE Status: Chronic Comment: counselled - Plan cont current plan of care * ruled out ACS * counseled to avoid smoking * resume home meds * see discharge summery * medication reviewed as below * symptomatic treatment. Review of Systems - Review of Systems ENT: negative: Ear Pain, Ear Discharge, Nose Pain, Nose Discharge, Nose Congestion, Mouth Pain, Mouth Swelling, Throat Pain, Throat Swelling, Other Respiratory: negative: Cough, Dry, Shortness of Breath, Hemoptysis, SOB with Excertion, Pleuritic Pain, Sputum, Wheezing Cardiovascular: negative: chest pain, palpitations, orthopnea, paroxysmal nocturnal dyspnea, edema, light headedness, other Gastrointestinal: negative: Nausea, Vomiting, Abdominal Pain, Diarrhea, Constipation, Melena, Hematochezia, Other Genitourinary: negative: Dysuria, Frequency, Incontinence, Hematuria, Retention , Other Musculoskeletal: negative: Neck Pain, Shoulder Pain, Arm Pain, Back Pain, Hand Pain, Leg Pain, Foot Pain, Other Skin: negative: Rash, Lesions, Carson, Bruising, Other - Medications/Allergies Allergies/Adverse Reactions: Allergies Allergy/AdvReac Type Severity Reaction Status Date / Time No Known Drug Allergies Allergy Verified 03/10/18 18:14 Medications: Current Medications Acetaminophen (Tylenol) 650 mg PO Q4H PRN PRN Reason: Headache/Fever or Pain Hydrocodone Bitart/Acetaminophen ([place] 5/325) 1 tab PO Q4H PRN PRN Reason: Moderate Pain (4-6) Last Admin: 03/11/18 08:06 Dose: 1 tab Al Hydroxide/Mg Hydroxide (Maalox) 30 ml PO Q6H PRN PRN Reason: Heartburn or Indigestion Artificial Tears (Tears Renewed 15ml Bottle) 0 drop EA EYE PRN PRN PRN Reason: Dry Eyes Aspirin (Aspirin) 325 mg PO DAILY [facility] Last Admin: 03/11/18 08:05 Dose: 325 mg Atorvastatin Calcium (Lipitor) 40 mg PO [facility] Last Admin: 03/10/18 20:14 Dose: 40 mg Dextrose/Water (Dextrose 50%) 25 gm SLOW IVP PRN PRN PRN Reason: Hypoglycemia Famotidine (Pepcid) 20 mg PO BID [facility] Last Admin: 03/11/18 08:06 Dose: 20 mg Glucagon (Glucagon) 1 mg IM PRN PRN PRN Reason: Hypoglycemia Guaifenesin (Robitussin Sf) 200 mg PO Q4H PRN PRN Reason: Cough Hydralazine HCl (Apresoline) 10 mg SLOW IVP Q4H PRN PRN Reason: Systolic BP > 180 Dextrose/Water (D5w) 1,000 mls @ 0 mls/hr IV .Q0M PRN; As Directed PRN Reason: Hypoglycemia Insulin Glargine 14 units/ (Miscellaneous Medication) 0.14 mls @ 0 mls/hr SC [facility] Last Admin: 03/10/18 20:11 Dose: 0.14 mls Insulin Glargine 14 units/ (Miscellaneous Medication) 0.14 mls @ 0 mls/hr SC [facility] Sodium Chloride (Normal Saline 0.9%) 1,000 mls @ 100 mls/hr IV .Q10H [facility] Last Admin: 03/11/18 03:00 Dose: 1,000 mls Insulin Human Lispro (Humalog) 0 units SC .MODERATE SLIDING SC PRN PRN Reason: Moderate Correctional Scale Insulin Human Lispro (Humalog) 0 units SC .BEDTIME SLIDING SC PRN PRN Reason: Bedtime Correctional Scale Loperamide HCl (Imodium) 2 mg PO PRN PRN PRN Reason: Diarrhea/Loose Stools Loratadine (Claritin) 10 mg PO DAILYPRN PRN PRN Reason: Sinus Symptoms Magnesium Hydroxide (Milk Of Magnesium) 30 ml PO DAILYPRN PRN PRN Reason: Constipation Metoprolol Tartrate (Lopressor) 12.5 mg PO BID [facility] Last Admin: 03/11/18 08:05 Dose: 12.5 mg Mineral Oil/White Petrolatum (Eucerin Cream) 0 gm TOP BIDPRN PRN PRN Reason: Dry Skin Nitroglycerin (Nitrostat) 0.4 mg SL Q5MIN PRN PRN Reason: Chest Pain Ondansetron HCl (Zofran Odt) 4 mg PO Q6H PRN PRN Reason: Nausea/Vomiting Ondansetron HCl (Zofran) 4 mg IVP Q6H PRN PRN Reason: Nausea/Vomiting Phenol (Chloraseptic [place] 180 Ml Bot) 0 ml PO PRN PRN PRN Reason: Sore Throat Senna (Senokot) 2 tab PO HSPRN PRN PRN Reason: Constipation Sertraline HCl (Zoloft) 100 mg PO DAILY [facility] Last Admin: 03/11/18 08:05 Dose: 100 mg Sodium Chloride ([place]ee Nasal [place] 0.65%) 0 ml EA NARE QIDPRN PRN PRN Reason: Nasal Congestion Zolpidem Tartrate (Ambien) 5 mg PO HSPRN PRN PRN Reason: Insomnia
--- NOTE | 2018-03-11 12:31 | DIS ---
PRIMARY CARE PHYSICIAN: Dr. Brandi Leiva. DATE OF ADMISSION: 03/10/2018 DATE OF DISCHARGE: 03/11/2018 DISCHARGE DISPOSITION: Home. PRIMARY DISCHARGE DIAGNOSES: 1. Chest pain, ruled out acute coronary syndrome, noncardiac, nonanginal. 2. Mild hyponatremia, corrected. 3. Mild thrombocytopenia, corrected. SECONDARY DISCHARGE DIAGNOSES: Diabetes type 2, hypertension, peripheral vascular disease, dyslipide anai, anxiety and depression, tobacco abuse disorder, benign enlargement of prostate, right above-the- knee amputation, chronic low back pain, history of cerebrovascular accident, and chronic abdominal pa in. PRIMARY PROCEDURE/OPERATION: None. RADIOLOGICAL INVESTIGATION: Chest x-ray normal. SIGNIFICANT LABORATORY DATA: WBC 6.2, hemoglobin 14.9, and platelet 97. Sodium 138, potassium 4.1, BUN 11, creatinine 0.79, calcium 8.5, LDL 19. Cardiac enzymes negative x3. LFT normal. Urinalysis normal. Urine culture negative. DISCHARGE MEDICATIONS: Aspirin 81 mg p.o. daily, Lipitor 40 mg p.o. daily, Lantus insulin 16 units i n morning and 18 units in evening, lisinopril 5 mg p.o. daily, metformin ER 1000 mg p.o. daily, Lopre ssor 12.5 mg p.o. b.i.d., and Zoloft 200 mg p.o. daily. CONTRAINDICATIONS: None. CODE STATUS: FULL CODE. INPATIENT CONSULTANTS: None. ALLERGIES: No known drug allergy. DISCHARGE PLAN: Post hospital, the patient will follow up with primary care physician in 1 week. HOSPITAL COURSE: A 67-year-old male with above-mentioned medical problem, who was admitted for chest pain. Please see my HPI for further details. His chest pain description was atypical and it does n ot sound like typical anginal pain more towards it was consistent with musculoskeletal pain. We obse rved him on telemetry floor. We did serial cardiac enzymes that were negative. This patient already had stress test done last year and that is why we did not repeat again this time. His cardiac enzym e is negative. If warranted a stress test, then he can get outpatient basis. The patient had mild h yponatremia and that is why we gave him IV fluid and with IV fluid, his hyponatremia corrected. He h as mild thrombocytopenia. Patient's urine culture remained negative. We resumed the patient's home medication upon discharge. While in hospital, he was given similar home medication. The patient is medically stable for discharge. The patient is seen and examined at bedside today. Francisco miller see my progress note from today for further detail.
[2018-03-11 15:36] VITALS: BP 102/57; TEMP 97.3
== END 2018-03-11 16:51 | disposition home or self-care (01) ==
LOC: ERS 11:59 → 2SW 16:07
PROVIDERS: ADMIT Internal Medicine; ATTEND Internal Medicine
DX: R07.89 Other chest pain (principal); E87.1 Hypo-osmolality and hyponatremia; D69.6 Thrombocytopenia, unspecified; I10 Essential (primary) hypertension; E78.5 Hyperlipidemia, unspecified; E11.51 Type 2 diabetes mellitus with diabetic peripheral angiopathy without gangrene; K21.9 Gastro-esophageal reflux disease without esophagitis; N40.0 Benign prostatic hyperplasia without lower urinary tract symptoms; F41.9 Anxiety disorder, unspecified; F32.9 Major depressive disorder, single episode, unspecified; F17.210 Nicotine dependence, cigarettes, uncomplicated; H90.5 Unspecified sensorineural hearing loss; G89.29 Other chronic pain; M54.5 Low back pain; R10.9 Unspecified abdominal pain; Z86.73 Personal history of transient ischemic attack (TIA), and cerebral infarction without residual deficits; Z79.82 Long term (current) use of aspirin; Z79.4 Long term (current) use of insulin; Z79.899 Other long term (current) drug therapy
CPT/HCPCS: 71045; 80048; 80053; 80061; 81003; 82550; 82553; 82962 ×2; 84484 ×2; 85025 ×2; 87086; 93005; 96361 ×3; 96374; 99285; G0378; 36415; 36416; J1200

== ENCOUNTER 2018-04-17 12:32 | Inpatient (IN) | payer MEDICARE ==
[2018-04-17 13:18] LABS: #Eosinphils 0.1 thou/uL (0.0-0.7); #Lymphocytes 1.7 thou/uL (1.20-3.40); #Monocytes 0.6 thou/uL (0.11-0.59); #Neutrophils 5.6 thou/uL (1.40-6.50); %Basophils 0.3 % (0.0-1.0); %Eosinophils 1.3 % (0.0-10.0); %Lymphocytes 20.9 % (21.0-51.0); %Monocytes 7.6 % (0.0-10.0); %Neutrophils 69.8 % (42.0-75.0); Hemoglobin 15.1 g/dL (14.0-18.0); Mean Corpuscular HGB CONC 32.9 g/dL (32.0-36.0); Mean Corpuscular Hemoglobin 31.8 pg (27.0-31.0); Mean Corpuscular Volume 96.5 fL (78.0-98.0); Mean Platelet Volume 7.3 fL (7.4-10.4); Platelet Count 98 thou/uL (130-400); RBC Distribution Width 13.2 % (11.5-14.5); Red Blood Cell (RBC) Count 4.75 mill/uL (4.70-6.10)
[2018-04-17 13:28] LABS: ALT (SGPT) 11 U/L (8-55); AST (SGOT) 11 U/L (5-34); Albumin 3.3 g/dL (3.4-4.8); Alkaline Phosphatase 118 U/L (40-150); Anion Gap 8 mmol/L (10-20); BUN (Urea Nitrogen) 17 mg/dL (8.4-25.7); Bilirubin, Total 0.5 mg/dL (0.2-1.2); Calc. Creatinine Clearance 0 mL/min (70-130); Calcium 8.2 mg/dL (7.8-10.44); Carbon Dioxide 26 mmol/L (23-31); Chloride 104 mmol/L (98-107); Estimated GFR-MDRD 69; Globulin 2.5 g/dL (2.4-3.5); Glucose 106 mg/dL (80-115); Potassium 4.4 mmol/L (3.5-5.1); Protein, Total 5.8 g/dL (5.8-8.1); Sodium 134 mmol/L (136-145)
[2018-04-17 13:31] LABS: CKMB 2.3 ng/mL (0-6.6)
[2018-04-17 13:36] LABS: Troponin I 1.478 ng/mL (< 0.028)
--- NOTE | 2018-04-17 14:07 | RAD ---
CHEST 1 VIEW: HISTORY: Hypotension. FINDINGS: Cardiac silhouette is magnified by projection. Pulmonary vasculature upper limits of normal. Medias tinum midline. Linear scarring right upper lobe. No confluent airspace consolidation or evidence of pneumothorax. IMPRESSION: No active cardiopulmonary abnormalities are demonstrated. POS: [facility]
[2018-04-17 15:45] LABS: Bilirubin Negative (Negative); Blood, Urine Negative (Negative); Clarity CLEAR (Clear); Glucose, Urine (Dipstick) Negative (Negative); Leukocyte Negative (Negative); Nitrite Negative (Negative); Protein, Urine (Dipstick) Negative (Neg-Trace); Specific Gravity, Urine 1.019 (1.002-1.036)
--- NOTE | 2018-04-17 16:02 | CT ---
CT HEAD NONCONTRAST: 04/17/18 HISTORY: Vertigo. Altered mental status. COMPARISON: 09/23/17. FINDINGS: There is no evidence of acute intracranial hemorrhage. Small infarct has developed in the posterior i nferior aspect of the left cerebellar hemisphere since the previous exam. Old lacunar infarcts and pr ominent chronic ischemic changes are otherwise stable. No mass effect or shift of midline structures. Diffuse cortical atrophy. There is calcification throughout the arterial structures. IMPRESSION: Evidence of prominent chronic small vessel disease. No acute intracranial abnormalities are demonstra mayela on noncontrast CT head. Atherosclerosis. POS: [facility]
[2018-04-17 16:56] LABS: Troponin I 1.395 ng/mL (< 0.028)
[2018-04-17] MEDS ORDERED: Dextrose 50% Abboject 50 ML SYRINGE SLOW IVP PRN (17:03)
[2018-04-17] MEDS ORDERED: HumaLOG 300 UNITS/3 ML VIAL SC PRN (17:03)
[2018-04-17] MEDS ORDERED: Dextrose 5% in Water 1,000 ML IV PRN (17:03)
[2018-04-17] MEDS ORDERED: Aspirin 325 MG TAB PO SCH (17:15)
[2018-04-17] MEDS ORDERED: Pantoprazole 40 MG VIAL IVP SCH (17:15)
--- NOTE | 2018-04-17 18:32 | CT ---
CT OF THE ABDOMEN AND PELVIS WITHOUT CONTRAST: 04/17/18 COMPARISON: 10/15/16. HISTORY: Abdominal pain and hypotension. TECHNIQUE: Multiple contiguous axial images were obtained in a CT of the abdomen and pelvis without contrast. Co rebeca reformats were performed. FINDINGS: The patient is status post cholecystectomy. The liver, right kidney, adrenal glands, spleen, and panc reas are unremarkable, although evaluation is limited without IV contrast. There is a small hypodensi ty emanating from the left kidney measuring 1.5 cm in size which likely represents a small renal cyst . This is stable compared to the prior examination. No free air, free fluid, or stranding changes are seen in the abdomen or pelvis. There are scattered diverticula in the colon. Moderate stool is seen in the colon. The small bowel is normal in caliber without significant distention. The appendix is normal. No abdominal or pelvic lymphadenopathy are seen. Atherosclerotic calcificatio ns are seen in the aorta. Degenerative changes are seen in the spine. The visualized inferior thorax and abdominal wall soft ti ssues are unremarkable. IMPRESSION: 1. No evidence of acute intra-abdominal/pelvic abnormality. 2. Left renal cyst. 3. Diverticulosis. POS: [facility]
[2018-04-17 18:45] LABS: Critical Call Chem Troponin I RESULT DECREASING; Troponin I 1.367 ng/mL (< 0.028)
[2018-04-17] MEDS ORDERED: Famotidine/PF 20 mg/2ml Vial SLOW IVP SCH (21:00)
[2018-04-17] MEDS: Sodium Chloride 0.9% 1,000 ML IV SCH (21:27)
[2018-04-17] MEDS: Heparin 5,000 UNITS/ML VIAL SC SCH (21:42)
[2018-04-18 00:43] VITALS: BMI 24.3
--- NOTE | 2018-04-18 01:49 | HP ---
CHIEF COMPLAINT: Low blood pressure. HISTORY OF PRESENT ILLNESS: Patient is a very pleasant 67-year-old male with past medical history of hypertension, diabetes, peripheral vascular disease, dyslipidemia, who was sent to the hospital for hypotension. The patient stated that he woke up yesterday, had half a cup of coffee, had significant amount of nausea, vomiting. The patient stated that he vomited about several times yesterday. Hal ed any diarrhea. Patient did state that he had some generalized abdominal pain. Patient stated that this morning his nurse came to assess him and found that his blood pressure was very low. The patie nt did state that he did have symptoms of dizziness and had some chest pain which resolved. Patient denies any fevers or chills at home. does not recall eating out recently. PAST MEDICAL HISTORY: 1. Peripheral vascular disease. 2. He has a history of gangrene of his right lower extremity in which requiring amputation. 3. Hypertension. 4. Reflux. 5. Diabetes type 2. 6. BPH. 7. Chronic lower back pain. 8. Frequent falls. 9. Intracranial hemorrhage after mechanical fall. 10. History of biliary pancreatitis. 11. Chronic abdominal pain. 12. History of CVA. PAST SURGICAL HISTORY: Right [id number] amputation and back surgeries and cholecystectomy. ALLERGIES: He has got no known drug allergies. MEDICATIONS: Lipitor 40 mg daily, metformin 1000 mg daily, metoprolol 12.5 daily, Zoloft 100 mg jomar y, aspirin 81 mg daily, lisinopril 5 mg daily, Lantus 40 units subcutaneously b.i.d. SOCIAL HISTORY: He lives by himself. He continues to smoke a pack a day. Denies any alcohol or madelyn g use. FAMILY HISTORY: No strong history of premature coronary artery disease, strokes, or cancer. REVIEW OF SYSTEMS: All negative except for the ones mentioned above in the HPI. PHYSICAL EXAMINATION: VITAL SIGNS: Temperature of 97.0, heart rate of 56, respirations of 20, 100% room air, 118/72. GENERAL: He is awake, alert, oriented x3 with no apparent distress. HEENT: Mucous membranes are very dry. CARDIOVASCULAR: S1, S2 present. No murmurs, rubs, or gallops. LUNGS: Mild coarse rhonchi heard all over the lungs. ABDOMEN: Bowel sounds are present x2. EXTREMITIES: He has got generalized pain upon deep palpation all over. He has a right [id number] amputation. The left foot is intact. NEUROLOGIC: Patient has no focal neurological deficits noted. LABORATORY RESULTS: As the following: WBC of 8.0, hemoglobin 15.1, hematocrit 48.5. His chemistry indicates sodium of 134, potassium 4.4, BUN of 17, creatinine 1.06. He did have some mild elevated t roponins. Lactic acid was 1.6. ASSESSMENT AND PLAN: The patient is a very pleasant 67-year-old male who presents to the hospital wi th hypotension. 1. Hypotension, most likely secondary to dehydration. The patient stated that he had several bouts of nausea and vomiting. Denies eating out anywhere; however, states that he has been constipated rec ently. I am not sure if the nausea and vomiting is secondary to gastroparesis from his diabetes vers us other etiology. We will get a CT abdomen and pelvis to rule out any acute abnormalities. Patient received a couple liters of normal saline in the ER for hypotension and his blood pressure has impro ryan. We will monitor him in step down unit for now just to be on the safer side. 2. Elevated troponins. The patient does have a history of diabetes, peripheral vascular disease. Mauri thomas has had a stress test about a year ago. No significant EKG changes. The patient denies any curren t chest pain; however, given his history, we will get Cardiology to see this patient. This elevated troponin could be most likely secondary to demand due to hypotension also; however, given his signifi cant medical history, we will consult Cardiology. 3. Sinus bradycardia. We will hold off on his beta kana and continue to monitor. 4. Diabetes. We will check Accu-Cheks a.c. and at bedtime and continue to monitor. 5. Deep venous thrombosis prophylaxis. We will put patient on subcu heparin or Lovenox.
[2018-04-18 04:37] LABS: #Basophils 0.1 thou/uL (0.0-0.2); #Eosinphils 0.1 thou/uL (0.0-0.7); #Lymphocytes 1.6 thou/uL (1.20-3.40); #Monocytes 0.4 thou/uL (0.11-0.59); #Neutrophils 3.8 thou/uL (1.40-6.50); %Basophils 1.1 % (0.0-1.0); %Eosinophils 2.2 % (0.0-10.0); %Lymphocytes 26.7 % (21.0-51.0); %Monocytes 5.8 % (0.0-10.0); %Neutrophils 64.2 % (42.0-75.0); Hemoglobin 14.6 g/dL (14.0-18.0); Mean Corpuscular HGB CONC 33.4 g/dL (32.0-36.0); Mean Corpuscular Hemoglobin 31.8 pg (27.0-31.0); Mean Corpuscular Volume 95.3 fL (78.0-98.0); Mean Platelet Volume 7.2 fL (7.4-10.4); Platelet Count 89 thou/uL (130-400); RBC Distribution Width 13.3 % (11.5-14.5)
[2018-04-18 04:52] LABS: Anion Gap 10 mmol/L (10-20); BUN (Urea Nitrogen) 11 mg/dL (8.4-25.7); Calc. Creatinine Clearance 93 mL/min (70-130); Calcium 8.3 mg/dL (7.8-10.44); Carbon Dioxide 23 mmol/L (23-31); Chloride 107 mmol/L (98-107); Estimated GFR-MDRD Greater than 90; Glucose 138 mg/dL (80-115); Potassium 4.1 mmol/L (3.5-5.1); Sodium 136 mmol/L (136-145)
[2018-04-18] MEDS: Sodium Chloride 0.9% 1,000 ML IV SCH ×3 (07:44→20:24)
[2018-04-18] MEDS: Atorvastatin Calcium 40 MG TAB PO SCH (07:45)
[2018-04-18] MEDS: Pantoprazole 40 MG VIAL IVP SCH ×2 (07:45→20:19)
[2018-04-18] MEDS: Aspirin 81 mg Enteric Coated Tablet PO SCH (07:45)
[2018-04-18] MEDS: Heparin 5,000 UNITS/ML VIAL SC SCH ×2 (07:45→15:58)
[2018-04-18 08:03] LABS: CKMB 2.2 ng/mL (0-6.6)
[2018-04-18 08:08] LABS: Troponin I 1.002 ng/mL (< 0.028)
[2018-04-18] MEDS ORDERED: Prevnar 13-Val Conj/PF 0.5 ML SYRINGE IM ONE (09:00)
--- NOTE | 2018-04-18 14:19 | PDOC.PN ---
- Subjective Encounter Start Date: 04/18/18 Encounter Start Time: 09:20 Pt seen for followup re: hypotension. Reports nausea and vomiting is better. Denies chest pain, shortness of breath, fevers or chills. - Objective Resuscitation Status: Resuscitation Status FULL:Full Resuscitation MAR Reviewed: Yes Vital Signs & Weight: Vital Signs (12 hours) Temp Pulse Resp BP Pulse Ox 04/18/18 13:54 82 18 95 04/18/18 12:00 97.8 F 74 18 93/54 L 96 04/18/18 11:50 62 18 97 04/18/18 08:00 97.8 F 77 16 98 04/18/18 07:00 97.8 F 77 16 97/55 L 96 04/18/18 06:25 58 L 18 97 04/18/18 04:09 97.6 F 69 17 97/51 L 95 04/18/18 02:49 96 Weight Weight 155 lb I&O: 04/17/18 04/18/18 04/19/18 06:59 06:59 06:59 Intake Total 480 Output Total 1200 Balance -720 Result Diagrams: 04/18/18 03:57 04/18/18 03:57 EKG Reviewed by me: Yes (Tele: NSR) Phys Exam - Physical Examination Constitutional: NAD HEENT: moist MMs, sclera anicteric, oral pharynx no lesions, 2+ tonsils Neck: no nodes, no JVD, supple, full ROM Respiratory: no wheezing, no rales, no rhonchi, clear to auscultation bilateral Cardiovascular: RRR, no rub S1, S2 Gastrointestinal: soft, non-tender, no distention, positive bowel sounds Neurological: moves all 4 limbs Psychiatric: normal affect, A&O x 3 Dx/Plan (1) Hypotension Status: Acute Comment: etiology unclear, ? hypovolemia due to nausea and vomiting, ? other causes including cardiac (pt also has elevated troponin) (2) Elevated troponin I level Code(s): R74.8 - ABNORMAL LEVELS OF OTHER SERUM ENZYMES Status: Acute Comment: NSTEMI vs demand ischemia, trending down, pt denies any chest pain, await cardiology input (3) BPH (benign prostatic hyperplasia) Code(s): N40.0 - BENIGN PROSTATIC HYPERPLASIA WITHOUT LOWER URINRY TRACT SYMP Status: Chronic Comment: stable (4) DMII (diabetes mellitus, type 2) Status: Chronic Comment: continue accuchecks, insulin sliding scale (5) GERD (gastroesophageal reflux disease) Code(s): K21.9 - GASTRO-ESOPHAGEAL REFLUX DISEASE WITHOUT ESOPHAGITIS Status: Chronic Comment: stable (6) H/O: CVA (cerebrovascular accident) Code(s): Z86.73 - PRSNL HX OF TIA (TIA), AND CEREB INFRC W/O RESID DEFICITS Status: Chronic Comment: stable (7) HTN (hypertension) Code(s): I10 - ESSENTIAL (PRIMARY) HYPERTENSION Status: Chronic Comment: pt hypotensive now (8) PVD (peripheral vascular disease) Code(s): I73.9 - PERIPHERAL VASCULAR DISEASE, UNSPECIFIED Status: Chronic Comment: stable - Plan * . Review of Systems - Review of Systems Constitutional: negative: fever, chills, sweats, weakness, malaise Respiratory: negative: Cough, Shortness of Breath, SOB with Excertion, Pleuritic Pain, Wheezing Cardiovascular: negative: chest pain, palpitations, orthopnea, paroxysmal nocturnal dyspnea, edema, light headedness Gastrointestinal: Nausea, Vomiting. negative: Abdominal Pain, Diarrhea, Constipation, Melena, Hematochezia Genitourinary: negative: Dysuria, Frequency, Incontinence, Hematuria, Retention Musculoskeletal: negative: Neck Pain, Shoulder Pain, Arm Pain, Back Pain, Hand Pain, Leg Pain, Foot Pain Skin: negative: Rash, Lesions, Carson, Bruising - Medications/Allergies Allergies/Adverse Reactions: Allergies Allergy/AdvReac Type Severity Reaction Status Date / Time No Known Drug Allergies Allergy Verified 03/10/18 18:14 Medications: Current Medications Albuterol/Ipratropium (Duoneb) 3 ml NEB H3CG-MG [facility] Last Admin: 04/18/18 13:54 Dose: 3 ml Aspirin (Ecotrin) 81 mg PO DAILY [facility] Last Admin: 04/18/18 07:45 Dose: 81 mg Atorvastatin Calcium (Lipitor) 40 mg PO DAILY [facility] Last Admin: 04/18/18 07:45 Dose: 40 mg Dextrose/Water (Dextrose 50%) 25 gm SLOW IVP PRN PRN PRN Reason: Hypoglycemia Glucagon (Glucagon) 1 mg IM PRN PRN PRN Reason: Hypoglycemia Heparin Sodium (Porcine) (Heparin) 5,000 units SC TID [facility] Last Admin: 04/18/18 07:45 Dose: 5,000 units Sodium Chloride (Normal Saline 0.9%) 1,000 mls @ 100 mls/hr IV .Q10H [facility] Last Admin: 04/18/18 07:44 Dose: 1,000 mls Dextrose/Water (D5w) 1,000 mls @ 0 mls/hr IV .Q0M PRN; As Directed PRN Reason: Hypoglycemia Insulin Human Lispro (Humalog) 0 units SC .MILD SLIDING SCALE PRN PRN Reason: Mild Correctional Scale Pantoprazole Sodium (Protonix) 40 mg IVP Q12HR [facility] Last Admin: 04/18/18 07:45 Dose: 40 mg
--- NOTE | 2018-04-18 19:13 | CON ---
DATE OF CONSULT: 04/18/18 HISTORY OF PRESENT ILLNESS: The patient is a 67-year-old gentleman who was admitted with hypotension and was noted to have an elevated troponin level. The patient has multiple cardiac risk factors. He has had multiple cerebrovascular accidents. The patient has no known cardiac history. He has a his tory of peripheral vascular disease and has undergone a right AKA. The patient with weakness and lig htheadedness. He denied having any chest discomfort. PAST MEDICAL HISTORY: Significant for 1. Multiple cerebrovascular accidents. 2. History of hypertension. 3. Peripheral vascular disease. 4. Diabetes mellitus. 5. Benign prostatic hypertrophy. 6. Diabetes mellitus. PAST SURGICAL HISTORY: He had right AKA, back surgery and cholecystectomy. SOCIAL HISTORY: Nonsmoker. MEDICATION: Metformin 1000 daily, metoprolol 12.5 daily, aspirin 81 daily, Lipitor 40 at bedtime, in sulin, lisinopril 5 daily, and sertraline 200 daily.. FAMILY HISTORY: No strong family history of heart disease. ALLERGIES: No known drug allergies. REVIEW OF SYSTEMS: The 10 Ten-point system otherwise unremarkable. PHYSICAL EXAMINATION GENERAL: Ill-appearing gentleman in no acute distress. VITAL SIGNS: Blood pressure 103/53. NECK: Showed no jugular distention. LUNGS: Clear to auscultation. HEART: Regular rate and rhythm, normal S1, S2 with a II/ systolic murmur. ABDOMEN: Nondistended he is status post AKA. NEUROLOGIC: Nonfocal. VASCULAR: Radial pulses 2+. LABORATORY DATA: Sodium 136, potassium 4.1, chloride 107, bicarbonate 23, BUN 11, creatinine 0.78, g lucose 138, troponin was 1.0. White blood cell count 6.0, hemoglobin 14.6, hematocrit 43.8 and plate lets are 89. IMPRESSION: 1. Hypotension of unclear etiology. 2. Elevated troponin level. 3. Peripheral vascular disease. 4. Hypertension. 5. Diabetes mellitus. 6. History of intracerebral hemorrhage after a fall. 7. Status post [id number] amputation. 8. Dyslipidemia. This gentleman presents with hypotension of unclear etiology. He has multiple risk factors for coron lilli artery disease. His troponin level was noted to be elevated with normal MB. This may be seconda ry to the hypotension. The patient needs to undergo a stress test to evaluate whether there is evide nce of silent ischemia. PLAN: Proceed with Cardiolite stress testing.
[2018-04-19] MEDS: Sodium Chloride 0.9% 1,000 ML IV SCH ×3 (03:35→20:26)
[2018-04-19] MEDS ORDERED: Ondansetron ODT 8 MG TAB SL PRN (09:21)
[2018-04-19] MEDS ORDERED: Regadenoson 0.4 MG/5 ML SYRINGE ONE (11:09)
[2018-04-19] MEDS: Atorvastatin Calcium 40 MG TAB PO SCH (12:35)
[2018-04-19] MEDS: Aspirin 81 mg Enteric Coated Tablet PO SCH (12:35)
[2018-04-19] MEDS: Pantoprazole 40 MG VIAL IVP SCH ×2 (12:36→20:26)
--- NOTE | 2018-04-19 13:23 | NM ---
NUCLEAR MEDICINE CARDIAC STRESS WITH EF AND WALL MOTION: COMPARISON: 03/11/17. HISTORY: Bradycardia. TECHNIQUE: The patient was administered 10.6 mCi of Technetium 99m sestamibi for rest imaging and 27 mCi of Tech netium 99m sestamibi for stress imaging. Cardiac gating is performed. FINDINGS: On the nonattenuated correction images, there is decreased radiotracer activity in the inferior wall due to bowel activity. This is corrected on the attenuated corrected images. There is no evidence o f a reversibility or a definite fixed defect. TID is 1.46. End-diastolic volume is 83 mL. End-systolic volume is 45 mL. CARDIAC GATING: Decreased motion of the septum. Ejection fraction is 46%. IMPRESSION: 1. 46% ejection fraction. 2. No reversibility or fixed defect. 3. There is TID. POS: [facility]
--- NOTE | 2018-04-19 15:38 | PRG ---
DATE OF SERVICE: 04/19/2018 SUBJECTIVE: The patient was seen and examined at the bedside. He is not having complaints to offer except for some abdominal discomfort. Apparently, he had this issue for quite some time, approximate ly 2-3 weeks, and he had 2 emesis this morning. He does not have any diarrhea. OBJECTIVE: VITAL SIGNS: Blood pressure is 122/56, pulse is 65, respiratory rate is 16, temperature is 98.1, and O2 saturation 94% on room air. HEENT: His head is atraumatic, normocephalic. Eyes, PERRLA. Conjunctivae pinkish. Oral mucosa is moist. Oral hygiene is poor. Multiple teeth with caries present. NECK: Supple. Thyroid is not palpable. LUNGS: Clear. HEART: S1 and S2 normal. ABDOMEN: Soft, but tender on deeper palpation, especially in the left side. No guarding, no masses. EXTREMITIES: No clubbing, cyanosis, or edema. NEUROLOGICAL EXAMINATION: He is alert and oriented x3. There is not any motor or sensory deficit. Cranial nerves are intact. LABORATORY DATA: Glycemia is ranging from 121-169. IMPRESSION: 1. Hypotension of unclear etiology. I presume that maybe it is medications related. He had evaluat ion by Cardiology, Dr. Beauchamp, who recommended stress test, which showed left ventricular ejection fraction of 46% versus 60%-65% left ventricular ejection fraction by echocardiogram done during this hospitalization. No ischemia on stress test was present. 2. Abdominal pain with vomiting. We will obtain the CT without contrast of the abdomen. 3. Elevated troponins. Again, software support engineer is looking into the source of that problem. 3. Diabetes mellitus, well-controlled.
--- NOTE | 2018-04-19 17:09 | CT ---
CT OF THE ABDOMEN AND PELVIS WITHOUT CONTRAST: Date: 04/19/18 COMPARISON: 04/17/18. HISTORY: Abdominal pain across the top of the abdomen. TECHNIQUE: Multiple contiguous axial images were obtained in a CT of the abdomen and pelvis without contrast. Co rebeca reformats were performed. FINDINGS: The patient is status post cholecystectomy. The liver, right kidney, adrenal glands, spleen, and panc reas are unremarkable, although evaluation is limited without IV contrast. There is a hypodensity marley nating from the left kidney which likely represents a small cyst. No free air, free fluid, or strandi ng changes are seen in the abdomen or pelvis. Moderate stool retention is seen in the colon. A few scattered diverticula are seen in the colon. The small bowel and appendix are unremarkable. No abdominal or pelvic lymphadenopathy are seen. Degenerative changes and postsurgical changes are seen in the spine. Atherosclerotic calcifications a re seen in the aorta. The visualized inferior thorax and abdominal wall soft tissues are unremarkable . IMPRESSION: 1. No evidence of acute intra-abdominal/pelvic abnormality. 2. Likely small left renal cyst. 3. Diverticulosis and moderate stool retention in the colon. POS: [facility]
[2018-04-19] MEDS: Nicotine 21 MG PATCH TD SCH (18:02)
--- NOTE | 2018-04-20 07:20 | PDOC.CTH ---
Cardiology Progress Note - Subjective Doing well. No complaints. N/V resolved - Objective Vital Signs Temp Pulse Resp BP Pulse Ox 04/20/18 06:31 79 14 95 04/20/18 04:00 98.2 F 84 15 129/76 93 L 04/20/18 02:31 12 04/19/18 22:16 76 12 04/19/18 20:20 98.0 F 84 16 94 L 04/19/18 20:19 98.0 F 84 16 118/70 94 L Weight 150 lb 04/19/18 04/20/18 04/21/18 06:59 06:59 06:59 Intake Total 2511 1713 Output Total 625 1175 Balance 1886 538 - Physical Examination General/Neuro: alert & oriented x3, NAD Neck: carotid US brisk, no JVD present Lungs: CTA Heart: PMI normal, RRR Abdomen: NT/ND, soft Extremities: + edema B - Labs Result Diagrams: 04/18/18 03:57 04/18/18 03:57 Troponin/CKMB CK-MB (CK-2) 2.2 ng/mL (0-6.6) 04/18/18 07:33 Troponin I 1.002 ng/mL (< 0.028) H* 04/18/18 07:33 - Assessment/Plan 1. Hypotension 2. Elevated troponin of 1.0 3. MIld Discussed angio vs meds. Pt not interested in angio at this time. EF normal and no ishcemia present on recent stress test even though he has had a scar to inferior wall on previous studies. On statin, ASA. Add low dose BB. Ok to dc tele. Fu with me in 1-2 weeks in office.
[2018-04-20] MEDS: Aspirin 81 mg Enteric Coated Tablet PO SCH (09:00)
[2018-04-20] MEDS: Atorvastatin Calcium 40 MG TAB PO SCH (09:00)
[2018-04-20] MEDS: Nicotine 21 MG PATCH TD SCH (09:00)
[2018-04-20] MEDS: Pantoprazole 40 MG VIAL IVP SCH (09:01)
[2018-04-20] MEDS: Sodium Chloride 0.9% 1,000 ML IV SCH ×2 (11:47→16:33)
[2018-04-20 11:53] VITALS: TEMP 98.3
[2018-04-20] MEDS ORDERED: Acetaminophen 325 MG TAB PO PRN (16:16)
[2018-04-20] MEDS ORDERED: Carvedilol 3.125 MG TAB PO SCH (21:00)
[2018-04-21 09:54] VITALS: BP 117/78
== END 2018-04-20 18:52 | disposition home health service (06) | DRG 316 ==
LOC: ERS 12:32 → IMCU/EMU 16:15 → 2NO 04-18 13:40
PROVIDERS: ADMIT Internal Medicine; ATTEND Internal Medicine
PROC: 4A12XM4 Monitoring of Cardiac Stress, External Approach (ICD-10-PCS; principal; 2018-04-19)
DX: I95.9 Hypotension, unspecified (principal); E11.51 Type 2 diabetes mellitus with diabetic peripheral angiopathy without gangrene; R00.1 Bradycardia, unspecified; I10 Essential (primary) hypertension; F17.210 Nicotine dependence, cigarettes, uncomplicated; K21.9 Gastro-esophageal reflux disease without esophagitis; E86.0 Dehydration; N40.0 Benign prostatic hyperplasia without lower urinary tract symptoms; R74.8 Abnormal levels of other serum enzymes; L89.301 Pressure ulcer of unspecified buttock, stage 1; G89.29 Other chronic pain; M54.5 Low back pain; R10.9 Unspecified abdominal pain; R11.10 Vomiting, unspecified; Z91.81 History of falling; Z79.4 Long term (current) use of insulin; Z87.898 Personal history of other specified conditions; Z89.611 Acquired absence of right leg above knee; Z86.73 Personal history of transient ischemic attack (TIA), and cerebral infarction without residual deficits; I35.0 Nonrheumatic aortic (valve) stenosis
CPT/HCPCS: 36415; 36416; 51701; 70450; 71045; 74176; 78452; 80048; 80053; 81003; 82553; 83605; 83880; 84484; 85025; 85652; 87040; 90471; 90670; 93005; 93017; 93306; 94640; 96360; 96361; A9500; C9113; G0009; G8978-GP-CL; G8979-GP-CK; J1644; J2785; J7620

== ENCOUNTER 2018-11-05 18:49 | Emergency (ER) | payer MEDICARE, MEDICAID ==
[2018-11-05 20:54] LABS: #Basophils 0.1 thou/uL (0.0-0.2); #Eosinphils 0.1 thou/uL (0.0-0.7); #Lymphocytes 1.7 thou/uL (1.20-3.40); #Monocytes 0.6 thou/uL (0.11-0.59); #Neutrophils 5.8 thou/uL (1.40-6.50); %Basophils 1.1 % (0.0-1.0); %Eosinophils 1.8 % (0.0-10.0); %Lymphocytes 20.8 % (21.0-51.0); %Monocytes 7.3 % (0.0-10.0); %Neutrophils 69.1 % (42.0-75.0); Hemoglobin 16.7 g/dL (14.0-18.0); Mean Corpuscular Hemoglobin 31.2 pg (27.0-31.0); Mean Corpuscular Volume 94.5 fL (78.0-98.0); Mean Platelet Volume 7.4 fL (7.4-10.4); Platelet Count 123 thou/uL (130-400); RBC Distribution Width 13.6 % (11.5-14.5); Red Blood Cell (RBC) Count 5.36 mill/uL (4.70-6.10); White Blood Cell (WBC) Count 8.4 thou/uL (4.8-10.8)
[2018-11-05 21:17] LABS: ALT (SGPT) 9 U/L (8-55); AST (SGOT) 11 U/L (5-34); Albumin 3.7 g/dL (3.4-4.8); Alkaline Phosphatase 167 U/L (40-150); Anion Gap 11 mmol/L (10-20); BUN (Urea Nitrogen) 24 mg/dL (8.4-25.7); Bilirubin, Total 0.4 mg/dL (0.2-1.2); Calc. Creatinine Clearance 0 mL/min (70-130); Calcium 9.1 mg/dL (7.8-10.44); Carbon Dioxide 25 mmol/L (23-31); Chloride 105 mmol/L (98-107); Estimated GFR-MDRD 54; Globulin 2.7 g/dL (2.4-3.5); Glucose 143 mg/dL (80-115); Potassium 4.4 mmol/L (3.5-5.1); Protein, Total 6.4 g/dL (5.8-8.1); Sodium 137 mmol/L (136-145)
== END 2018-11-05 23:53 ==
LOC: ERS 18:49
DX: I99.8 Other disorder of circulatory system (principal); E11.40 Type 2 diabetes mellitus with diabetic neuropathy, unspecified; E78.5 Hyperlipidemia, unspecified; I10 Essential (primary) hypertension; F32.9 Major depressive disorder, single episode, unspecified; F17.210 Nicotine dependence, cigarettes, uncomplicated; Z86.73 Personal history of transient ischemic attack (TIA), and cerebral infarction without residual deficits; Z79.4 Long term (current) use of insulin; Z79.899 Other long term (current) drug therapy; Z79.82 Long term (current) use of aspirin
CPT/HCPCS: 36415; 80053; 85025

== ENCOUNTER 2018-11-17 15:39 | Inpatient (IN) | payer MEDICARE, MEDICAID ==
[2018-11-17 15:52] LABS: Lavender RECEIVED; Red RECEIVED
[2018-11-17] MEDS ORDERED: Midazolam HCl 2 mg/2 ml Vial ONE (15:53)
[2018-11-17 15:59] LABS: Hemoglobin 18.2 g/dL (14.0-18.0); Mean Corpuscular HGB CONC 30.9 g/dL (32.0-36.0); Mean Corpuscular Hemoglobin 30.7 pg (27.0-31.0); Mean Corpuscular Volume 99.5 fL (78.0-98.0); Mean Platelet Volume 9.2 fL (7.4-10.4); Platelet Count 150 thou/uL (130-400); RBC Distribution Width 13.7 % (11.5-14.5); Red Blood Cell (RBC) Count 5.91 mill/uL (4.70-6.10); White Blood Cell (WBC) Count 19.1 thou/uL (4.8-10.8)
[2018-11-17 16:10] LABS: INR-International Normal Ratio 1.1; PTT 33.1 SEC (22.9-36.1); Prothrombin Time 14.7 SEC (12.0-14.7)
--- NOTE | 2018-11-17 16:13 | CT ---
CT HEAD NONCONTRAST: 11/17/18 HISTORY: Fall. Head injury. Seizure. COMPARISON: 05/26/18. FINDINGS: There is no evidence of acute intracranial hemorrhage. Scattered old areas of parenchymal infarct are again demonstrated. A new small wedge shaped peripheral focus of encephalomalacia at the floor of th e right occipital lobe has developed since the 05/26/18 exam. There is no mass effect or shift of midl ine structures. Partial opacification of the left mastoid air cells. Endotracheal catheter and nasoga stric tube are partially visualized. Prominent calcification within the arterial structures. IMPRESSION: Evidence of severe vascular disease with multiple old infarcts. No acute intracranial abnormalities a re demonstrated. POS: [facility]
--- NOTE | 2018-11-17 16:15 | CT ---
CT CERVICAL SPINE WITHOUT CONTRAST: 11/17/18 INDICATION: History of fall with neck injury. COMPARISON: None. FINDINGS: The patient is intubated with gastric catheter placement. Lung apices are clear. No acute fracture or subluxation is evident. There is multilevel spondylosis of the cervical spine. Spinal alignment is preserved. Craniocervical junction appears within normal limits. IMPRESSION: 1. No acute fracture or subluxation demonstrated. 2. Moderate spondylosis of the cervical spine. POS: [facility]
[2018-11-17] MEDS ORDERED: fentaNYL Citrate/PF 2,000 MCG in Sodium Chloride 0.9% 60 ML IV SCH ×2 (16:18→21:35)
[2018-11-17 16:20] LABS: MDiff Complete? YES
[2018-11-17] MEDS ORDERED: Fentanyl 100 MCG/2 ML VIAL ONE (16:20)
[2018-11-17 16:21] LABS: Band 3 % (5-11); Lymphocytes 50 % (21-51); Monocytes 2 % (0-10); Neutrophil 45 % (42-75); Platelet Morphology Comment Appears Adequate
[2018-11-17 16:23] LABS: ALT (SGPT) 23 U/L (8-55); AST (SGOT) 31 U/L (5-34); Acetaminophen Less than 6.0 mcg/mL (10.0-30.0); Albumin 4.4 g/dL (3.4-4.8); Alcohol Less than 10 mg/dL (Less than 10); Alkaline Phosphatase 166 U/L (40-150); Anion Gap 29 mmol/L (10-20); BUN (Urea Nitrogen) 19 mg/dL (8.4-25.7); Bilirubin, Total 0.5 mg/dL (0.2-1.2); Calc. Creatinine Clearance 0 mL/min (70-130); Chloride 99 mmol/L (98-107); Estimated GFR-MDRD 53; Globulin 3.6 g/dL (2.4-3.5); Glucose 250 mg/dL (80-115); Potassium 4.2 mmol/L (3.5-5.1); Salicylate Less than 8.0 mg/dL (15.0-30.0); Sodium 132 mmol/L (136-145)
[2018-11-17 16:28] LABS: Carbon Dioxide 8 mmol/L (23-31)
[2018-11-17 16:29] LABS: Bilirubin Negative (Negative); Blood, Urine Moderate (Negative); Clarity CLEAR (Clear); Glucose, Urine (Dipstick) Negative (Negative); Leukocyte Negative (Negative); Nitrite Negative (Negative); Protein, Urine (Dipstick) 30 mg/dL (Neg-Trace); Specific Gravity, Urine 1.017 (1.002-1.036); pH, Urine 5.5 (5.0-9.0)
[2018-11-17 16:31] LABS: Bacteria/HPF None Seen HPF (None Seen); Hyaline Casts/LPF 0-3 HYALINE CAST LPF (0-3 Hyaline); RBC/HPF 0-3 HPF (0-3); Squamous Epithelial 0-3 HPF (0-3); WBC/HPF None Seen HPF (0-3)
[2018-11-17 16:32] LABS: Actual Bicarbonate (HCO3a) 10.5 mEq/L (22-28); Analyzer IN Cardio ER; Base Excess (BEa) -18.5 mEq/L (-2.0 to +3.0); CO2 Tension 35.6 mmHg (35.0-45.0); Carboxyhemoglobin (COHb) 1.1 gm% (0.0-3.0); Hemoglobin (Hb) 17.2 g/dL (14.0-18.0); Potassium - ABG Lab 4.27 mmol/L (3.70-5.30)
[2018-11-17 16:34] LABS: Puncture Site LBA; pH, Arterial 7.09 (7.35-7.45)
--- NOTE | 2018-11-17 16:35 | RAD ---
CHEST ONE VIEW: 11/17/18 HISTORY: Fall. Seizure. COMPARISON: 05/28/18. FINDINGS: The cardiac silhouette is magnified by projection. Pulmonary vasculature upper limits of normal. Medi astinum is midline with aortic calcification. Tip of an endotracheal catheter overlies the thoracic inlet. Nasogastric tube descends the abdomen. N o evidence of pneumothorax. IMPRESSION: Endotracheal catheter is in good radiographic position. Atherosclerosis. POS: [facility]
[2018-11-17 16:39] LABS: Amphetamine Not Detected (NotDetected); Barbiturates Screen Not Detected (NotDetected); Benzodiazepine Screen Not Detected (NotDetected); Cocaine Metabolite Screen Not Detected (NotDetected); Medtox Control Line Valid? VALID (VALID); Medtox Reader # READER 4; Methadone Not Detected (NotDetected); Methamphetamine Not Detected (NotDetected); Opiate Screen Not Detected (NotDetected); Oxycodone Screen Not Detected (NotDetected); Phencyclidine (PCP) Not Detected (NotDetected); THC/Cannabinoid Screen Not Detected (NotDetected); Tricyclic Screen Not Detected (NotDetected)
[2018-11-17] MEDS ORDERED: Sodium Bicarb 50 MEQ/50 ML VIAL ONE (16:44)
[2018-11-17] MEDS ORDERED: Norepinephrine 8 MG/0.9% NS 250 ML ONE (17:41)
[2018-11-17] MEDS ORDERED: Cefepime 2 GM VIAL ONE (17:41)
--- NOTE | 2018-11-17 18:16 | RAD ---
RADIOGRAPH CHEST 1 VIEW: Supine 11/17/18 at 5:04 p.m. HISTORY: 68- year-old male status post central line placement. COMPARISON: 11/17/18 at 4:07 p.m. FINDINGS: There is a new left subclavian central vascular catheter with distal tip overlying the SVC. Endotrach eal tube remains with distal tip in the mid thoracic trachea. NG tube remains with distal tip overly ing the proximal aspect of the stomach. There is no interval change other than the new central line. There is no air space density or pulmonary edema. The lateral costophrenic angles are sharp. Supine positioning makes this study insensitive for pneumothorax detection. IMPRESSION: 1. No acute pulmonary findings. 2. Left subclavian central vascular catheter placement. 3. Recommend upright view to evaluate for pneumothorax. jn [] POS: [facility]
[2018-11-17] MEDS ORDERED: Propofol 1,000 MG/100 ML VIAL IV ONE (19:21)
[2018-11-17] MEDS ORDERED: Dextrose 5% in Water 1,000 ML IV PRN (19:44)
[2018-11-17] MEDS ORDERED: HumaLOG 300 UNITS/3 ML VIAL SC PRN ×2 (19:44)
[2018-11-17] MEDS ORDERED: Ondansetron ODT 4 MG TAB PO PRN (19:44)
[2018-11-17] MEDS ORDERED: Senokot S 8.6-50 MG TAB PO PRN (19:44)
[2018-11-17] MEDS ORDERED: Lorazepam 2 MG/ML VIAL SLOW IVP PRN ×2 (19:44→21:35)
[2018-11-17] MEDS ORDERED: Ondansetron PF 4 MG/2 ML Vial IVP PRN (19:44)
[2018-11-17] MEDS ORDERED: Acetaminophen 650 MG Suppository PR PRN (19:44)
[2018-11-17] MEDS ORDERED: Dextrose 50% Abboject 50 ML SYRINGE SLOW IVP PRN (19:44)
[2018-11-17 19:47] VITALS: BMI 22.2
[2018-11-17] MEDS: Dextrose 5 % And 0.9 % NaCl 1,000 ML IV SCH (19:53)
[2018-11-17] MEDS ORDERED: Sodium Bicarbonate 150 MEQ in Dextrose 5% in Water 1,000 ML IV SCH (20:00)
[2018-11-17] MEDS: Atorvastatin Calcium 40 MG TAB PO SCH (20:10)
[2018-11-17 20:22] LABS: Lactic Acid 3.5 mmol/L (0.5-2.2)
[2018-11-17] MEDS: Famotidine/PF 20 mg/2ml Vial SLOW IVP SCH (20:25)
[2018-11-17] MEDS ORDERED: Norepinephrine 8 MG/250 ML BAG IVPB PRN (21:34)
[2018-11-17] MEDS ORDERED: Fentanyl CADD 250 ML IVPB SCH (21:35)
[2018-11-17] MEDS ORDERED: Morphine 2 MG/ML SYRINGE SLOW IVP PRN (21:35)
[2018-11-17] MEDS ORDERED: Fentanyl BOLUS 250 ML IVPB PRN (21:35)
[2018-11-17] MEDS ORDERED: Propofol BOLUS 1,000 MG/100 ML VIAL IV PRN (21:35)
[2018-11-17] MEDS ORDERED: Propofol 1,000 MG/100 ML VIAL IV PRN (21:35)
[2018-11-17] MEDS ORDERED: CLINDAMYCIN IVPB SCH (21:45)
[2018-11-17] MEDS: Sodium Chloride 0.9% 1,000 ML IV SCH (23:05)
--- NOTE | 2018-11-18 01:08 | HP ---
PRIMARY CARE PHYSICIAN: Brandi Leiva DO CHIEF COMPLAINT: Multiple seizures, unresponsive. HISTORY OF PRESENT ILLNESS: This is a 68-year-old white male with a longstanding history of diabetes mellitus type 2 insulin-dependent as well as multiple recent strokes, last one in May of 2018. The patient has been living at [facility] since then [facility] but has been in good health, gets around mostly in a wheelchair, sometimes ambulating with prosthesis and a walker. He spoke to his son yesterday on the phone and was coherent, not having any complaints at that time. The patient per the [facility], was in his normal state of health until just before he came to the emergency room, he was noted to fall out of his wheelchair and hit his head on the ground. He then had a seizure, uncertain if the seizure started in the wheelchair or after hitting his head on the ground. EMS found him, he was postictal, but eventually started to say a couple of things and was looking around a little bit inside the ambulance, was protecting his airway at that time. Then, he had another seizure. After that, the patient was unresponsive and no longer protecting his airway. On arrival to the emergency room, he was also noted to be hypotensive and tachycardic. He was intubated in the emergency room, given IV fluids and now his pressures have returned normal and his pulse has come down. He was found to be very acidotic and has significantly elevated lactate. He also had an elevated white blood cell count and given the low blood pressure, he was given antibiotics, cefepime, and Levaquin in the emergency room. He is being admitted to the ICU. PAST MEDICAL HISTORY: All of the history are taken from the chart as the patient is unresponsive on the vent and confirmed with son who is in the room, but is not really familiar with his dad's medical problems. 1. CVA x10. 2. Diabetes mellitus type 2, insulin dependent. 3. Gangrene of right lower extremity requiring right [id number] amputation. 4. Peripheral vascular disease. 5. Hypertension. 6. Gastroesophageal reflux disease. 7. Sensorineural deafness. 8. Benign prostatic hyperplasia. 9. Chronic low back pain. 10. Previous intracranial hemorrhage after mechanical fall. 11. History of biliary pancreatitis. 12. Chronic abdominal pain. PAST PSYCHIATRIC HISTORY: Anxiety and depression. PAST SURGICAL HISTORY: 1. Right above the knee amputation, 2014. 2. Back surgery x4. 3. Cholecystectomy. 4. Right eye surgery. SOCIAL HISTORY: The patient is currently a [facility] resident. Previously smoked one pack per day. Uncertain if he is continued in the [facility] or not. No history of illicit drug use or alcohol. His medical power of employment attorney is his son who lives in [place], Fady Elizabeth, and his other son Gregorio Elizabeth is the oldest son, who is actually in the room here. ALLERGIES: NO KNOWN DRUG ALLERGIES. CURRENT MEDICATIONS: Unable to obtain secondary to patient's mental status. Most recently may have been, 1. Aspirin 81 mg daily. 2. Atorvastatin 80 mg at night. 3. Dulcolax as needed. 4. Acetaminophen as needed. 5. Carvedilol 3.125 mg twice a day. 6. Clopidogrel 75 mg daily. 7. Lantus 18 units in the morning and 18 units at night. 8. Lisinopril 5 mg daily. 9. Loperamide as needed. 10. Magnesium hydroxide as needed. 11. Nicotine patch. 12. Zofran as needed. 13. MiraLAX 17 g daily. 14. Sertraline 200 mg daily. 15. Tramadol as needed. 16. Ambien as needed. REVIEW OF SYSTEMS: Unable to obtain secondary to patient's mental status. PHYSICAL EXAMINATION: VITAL SIGNS: Blood pressure 117/65, pulse 94, respirations 20, O2 saturation 100% on the ventilator, temperature 98.0. GENERAL: This is a well-developed, well-nourished male, sedated on the ventilator. HEENT: Pupils are 2 mm bilaterally, round and reactive to light. Oropharynx with ET tube in place. Head: The patient has a large contusion on the left forehead without any active bleeding and no bony deformity. NECK: Supple. No lymphadenopathy. No thyroid nodules or enlargement. No JVD. CARDIOVASCULAR: Regular rate and rhythm. No murmurs, rubs, or gallops. LUNGS: Clear to auscultation bilaterally on the vent. No wheezes, crackles, or rhonchi. ABDOMEN: Soft. Normoactive bowel sounds. No hepatosplenomegaly or other masses. EXTREMITIES: The patient has a right [id number] amputation. Otherwise, no clubbing, cyanosis, or edema. SKIN: No lesions other than the contusion on the forehead noted. NEUROLOGIC: The patient is currently sedated on the vent, unable to do complete neurologic exam. He does have equal pupils. There had been some note in the ambulance notes that they thought his pupils were unequal at that time. LABORATORY DATA: White blood cell count 19.1 with a normal differential and only 3% bands, hemoglobin 18.2, hematocrit 58.8, platelet count 150. Coagulation profile normal. Blood gas shows pH of 7.09, normal pCO2 of 35, PO2 of 185. Complete metabolic panel notable for sodium of 132, carbon dioxide of 8, anion gap of 29, creatinine of 1.34, glucose of 280, alkaline phosphatase of 166. Rest was normal. Lactic acid was very elevated on the original check of 17.9. Troponin was normal. Brain natriuretic peptide was normal. Urinalysis showed moderate blood, no white blood cells or bacteria seen. Toxicology screen was negative for any illicit drugs. Negative for acetaminophen, salicylate, or alcohol. Chest x-ray, reviewed the chest x-ray done in the emergency room along with the radiologist's report, does show no acute cardiopulmonary process. He does have an ET tube in place. No evidence of infiltrate. No evidence of cardiomegaly. No pneumothorax. CT of cervical spine showed no evidence of fracture. CT of the brain showed multiple strokes including one back in May is now showing up as an area of brain tissue loss, but no acute changes. EKG, I reviewed the EKG done in the emergency room. It does show atrial fibrillation with a rapid ventricular response, currently now on a regular rate after fluid resuscitation. ASSESSMENT: 1. New onset seizures. These may be secondary to head trauma as a result of his strokes. The patient will need Ativan p.r.n. and we will consult Neurology for recommendations. He has no further seizure activity in the emergency room. 2. Metabolic acidosis secondary to lactic acidosis from seizures. The patient is currently being hydrated. I will check a CPK. I will keep a close eye on his renal function. Hopefully, the fluids will help improve this lactic acidosis. 3. Elevated white blood cell count and tachycardia. The patient does meet the criteria for SIRS, however, no evidence of focus for infection. I believe all these findings are secondary to his seizures. The patient has received cefepime, Levaquin, and vancomycin in the emergency room. We will defer to Pulmonology for continuation of any antibiotics. 4. Acute renal failure. The patient has a mildly elevated creatinine. We will need to monitor this closely with his significant seizures. He may end up with some rhabdomyolysis, which could be damaging the kidneys. We will keep plenty of fluids going through his IV. 5. Diabetes mellitus type 2, insulin dependent. I will put the patient on a moderate sliding scale q.a.c. and at bedtime blood sugars and depending on how his blood sugars respond, we will need to reinstitute some insulin, high or lower dose from normal as he is not eating currently. 6. Gastroesophageal reflux disease. We will put the patient on Pepcid twice a day. 7. Deep venous thrombosis prophylaxis. We will put the patient on SCDs and low-dose Lovenox. 8. Code status. The patient is currently full code. Job ID: [id number]
[2018-11-18] MEDS: Dextrose 5 % And 0.9 % NaCl 1,000 ML IV SCH (03:38)
[2018-11-18] MEDS: Sodium Chloride 0.9% 1,000 ML IV SCH ×2 (06:28→13:19)
[2018-11-18 06:33] LABS: Anion Gap 11 mmol/L (10-20); BUN (Urea Nitrogen) 13 mg/dL (8.4-25.7); CK (CPK) 746 U/L (30-200); Calc. Creatinine Clearance 77 mL/min (70-130); Calcium 8.3 mg/dL (7.8-10.44); Carbon Dioxide 24 mmol/L (23-31); Chloride 105 mmol/L (98-107); Estimated GFR-MDRD 81; Glucose 73 mg/dL (80-115); Potassium 3.1 mmol/L (3.5-5.1); Sodium 137 mmol/L (136-145)
[2018-11-18 07:12] LABS: #Eosinphils 0.1 thou/uL (0.0-0.7); #Lymphocytes 1.8 thou/uL (1.20-3.40); #Monocytes 0.8 thou/uL (0.11-0.59); #Neutrophils 8.2 thou/uL (1.40-6.50); %Basophils 0.2 % (0.0-1.0); %Eosinophils 0.6 % (0.0-10.0); %Lymphocytes 16.2 % (21.0-51.0); %Monocytes 7.6 % (0.0-10.0); %Neutrophils 75.4 % (42.0-75.0)
[2018-11-18 07:21] LABS: Actual Bicarbonate (HCO3a) 21.6 mEq/L (22-28); CO2 Tension 30.9 mmHg (35.0-45.0); Calcium, Ionized 1.08 mmol/L (1.12-1.30); Carboxyhemoglobin (COHb) 1.3 gm% (0.0-3.0); Hemoglobin (Hb) 15.2 g/dL (14.0-18.0); O2 Tension (PaO2) 86.5 mmHg (> 80.0); Potassium - ABG Lab 3.37 mmol/L (3.70-5.30); pH, Arterial 7.46 (7.35-7.45)
[2018-11-18 07:26] LABS: Puncture Site RBRACH
[2018-11-18 07:27] LABS: ALV-art Gradient 124.425 (0-20)
[2018-11-18 07:28] LABS: Hemoglobin 15.4 g/dL (14.0-18.0); Mean Corpuscular HGB CONC 33.4 g/dL (32.0-36.0); Mean Corpuscular Volume 92.8 fL (78.0-98.0); RBC Distribution Width 13.4 % (11.5-14.5); Red Blood Cell (RBC) Count 4.98 mill/uL (4.70-6.10); White Blood Cell (WBC) Count 10.9 thou/uL (4.8-10.8)
[2018-11-18 07:34] LABS: Mean Platelet Volume 7.1 fL (7.4-10.4); Platelet Count 102 thou/uL (130-400); Platelet Morphology Comment Appears Decreased; RBC Morphology Normal
[2018-11-18] MEDS ORDERED: DC Sedation Protocol FS ONE (07:40)
[2018-11-18] MEDS ORDERED: CCU Electrolyte Replacement 1 EACH FS SCH (07:46)
[2018-11-18] MEDS ORDERED: Magnesium 2 GM/NS 0.9% 100 ML 2 GM in Premix Bag 1 BAG IVPB PRN (07:48)
[2018-11-18] MEDS ORDERED: CCU ELECTROLYTE REPLACEMENT PROTOCOL FS PRN (07:48)
[2018-11-18] MEDS ORDERED: Potassium Phosphate 12 MMOL in Sodium Chloride 0.9% 250 ML 250 ML IV PRN (07:48)
[2018-11-18] MEDS ORDERED: Potassium Chloride 40 MEQ in Premix Bag 1 BAG IVPB PRN (07:48)
[2018-11-18] MEDS ORDERED: Potassium Phosphate 15 MMOL in Sodium Chloride 0.9% 250 ML 250 ML IV PRN (07:48)
[2018-11-18] MEDS ORDERED: Potassium Chloride 20 MEQ TAB PO PRN (07:48)
[2018-11-18] MEDS ORDERED: Potassium Chloride 40 MEQ in Sodium Chloride 0.9% 250 ML 250 ML IVPB PRN (07:48)
[2018-11-18] MEDS ORDERED: Potassium Phosphate 9 MMOL in Sodium Chloride 0.9% 100 ML IVPB PRN (07:48)
[2018-11-18] MEDS ORDERED: Magnesium Oxide 400 MG TAB PO PRN ×2 (07:48)
--- NOTE | 2018-11-18 10:17 | CON ---
DATE OF CONSULTATION: 11/18/2018 TIME SPENT: A 45 minutes critical care time. HISTORY OF PRESENT ILLNESS: The patient remains mechanically ventilated after being intubated last night after experiencing 2 seizure episodes. He has been requiring a low dose of Levophed to counteract the sedation he is receiving. This morning, I find that he wakes up and follows commands without limitation. According to history and physical. He lives in a correction. He had 2 seizure episodes yesterday. He was intubated after the second episode. He was found to have profound lactic acidosis from the seizure. PAST MEDICAL HISTORY: 1. Multiple strokes. 2. Diabetes mellitus type 2, now requiring insulin. 3. 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 4. Peripheral vascular disease. 5. Hypertension. 6. Gastroesophageal reflux. 7. Deafness. 8. Prostatic hypertrophy. 9. Low back pain. 10. Previous intracranial hemorrhage after fall. 11. Pancreatitis. PAST SURGICAL HISTORY: 1. See above. Additionally, he has had back surgery. 2. Cholecystectomy. 3. Right eye surgery. SOCIAL HISTORY: snf resident. Does not drink alcohol. Used to smoke 1 pack per day. Currently does not smoke. ALLERGIES: NONE. MEDICATIONS: Prior to admission, these were reviewed and are listed in the home medication section of the [facility] computer. FAMILY MEDICAL HISTORY: Unremarkable and nonpertinent. REVIEW OF SYSTEMS: A 12-point review of systems cannot be obtained as the patient is currently intubated on mechanical ventilation. PHYSICAL EXAMINATION: VITAL SIGNS: Temperature 98.5, pulse 71, blood pressure 100/63, and O2 saturation 100%. He is currently on 2 mcg/kg/minute of Levophed. HEENT: He has a bruise over his left frontal area. NECK: No adenopathy, JVD, or bruits. LUNGS: Clear to auscultation without wheezing or rhonchi. CARDIAC: S1 and S2. Regular without murmur. ABDOMEN: Soft and nontender. No hepatosplenomegaly. EXTREMITIES: Right giecq-ctg-xeia amputation. NEUROLOGIC: He follows commands and moving all extremities other than his right lower extremity, which is amputated. LABORATORY DATA: Sodium 137, potassium 3.1, chloride 105, CO2 of 24, BUN 13, creatinine 0.9, and glucose 73. CPK 746. Lactate currently 3.5. A pH of 7.46, pCO2 of 31, and pO2 of 86 on SIMV rate of 20, tidal volume of 500, PEEP 5, pressure support 10, and FiO2 of 35%. White count 10.9, hematocrit 46.2, and platelet count 102. His chest x-ray shows no mass, effusion, or infiltrate. He has a left subclavian line and endotracheal tube, both which are in proper position. ASSESSMENT: 1. Acute respiratory failure requiring mechanical ventilation. This is mainly done for airway protection as the patient had 2 seizure episodes and altered mental status. 2. Rhabdomyolysis. 3. Lactic acidosis. PLAN: 1. Continue hydration. 2. Extubate. 3. Continue to monitor in CCU. 4. Replace potassium. Job ID: [id number]
[2018-11-18] MEDS: Clopidogrel Bisulfate 75 MG TAB PO SCH (11:51)
[2018-11-18] MEDS: Famotidine/PF 20 mg/2ml Vial SLOW IVP SCH ×2 (11:51→20:47)
[2018-11-18] MEDS: Enoxaparin Sodium 30 MG/0.3 ML SYRINGE SC SCH (11:52)
[2018-11-18] MEDS: Aspirin 81 mg Enteric Coated Tablet PO SCH (11:52)
--- NOTE | 2018-11-18 12:39 | PDOC.PN ---
- Subjective Encounter Start Date: 11/18/18 Encounter Start Time: 09:00 Pt seen for followup re: seizures. Extubated, waking up to voice but dozing off , unable to complete ROS. - Objective Resuscitation Status - Order Detail: 11/17/18 18:52 Resuscitation Status Routine Resuscitation Status: FULL: Full Resuscitation Discussed with: Son NINOSKA Reviewed: Yes Vital Signs & Weight: Vital Signs (12 hours) Temp Resp Pulse Ox 11/18/18 12:00 98.7 F 11/18/18 08:00 99.2 F 100 11/18/18 06:00 20 11/18/18 04:00 98.5 F 20 11/18/18 02:00 20 Weight Weight 159 lb 9.835 oz Most Recent Monitor Data Heart Rate from ECG 82 NIBP 101/59 NIBP BP-Mean 73 Respiration from ECG 19 SpO2 100 I&O: 11/17/18 11/18/18 11/19/18 06:59 06:59 06:59 Intake Total 1888 200 Output Total 1680 415 Balance 208 -215 Result Diagrams: 11/18/18 06:00 11/18/18 06:00 Additional Labs: Accuchecks 11/18/18 11/17/18 11/17/18 12:09 20:26 15:59 POC Glucose 97 167 H 239 H EKG Reviewed by me: Yes (Tele: NSR) Phys Exam - Physical Examination Constitutional: NAD HEENT: moist MMs, sclera anicteric, oral pharynx no lesions, 2+ tonsils Neck: no nodes, no JVD, supple, full ROM Respiratory: clear to auscultation bilateral Cardiovascular: RRR, no rub S1, S2 Gastrointestinal: soft, non-tender, no distention, positive bowel sounds L elbow tenderness Neurological: moves all 4 limbs Psychiatric: normal affect Deviation from normal: Oriented to person and place, not to time Dx/Plan (1) Seizure Code(s): R56.9 - UNSPECIFIED CONVULSIONS Status: Acute Comment: pt extubated , reports he has a history of seizures. Await neurology input. (2) DMII (diabetes mellitus, type 2) Status: Chronic Comment: continue accuchecks, insulin sliding scale (3) GERD (gastroesophageal reflux disease) Code(s): K21.9 - GASTRO-ESOPHAGEAL REFLUX DISEASE WITHOUT ESOPHAGITIS Status: Chronic Comment: stable (4) HTN (hypertension) Code(s): I10 - ESSENTIAL (PRIMARY) HYPERTENSION Status: Chronic Comment: controlled (5) Acute respiratory failure Code(s): J96.00 - ACUTE RESPIRATORY FAILURE, UNSP W HYPOXIA OR HYPERCAPNIA Status: Resolved Comment: s/p extubation - Plan * . Review of Systems - Medications/Allergies Allergies/Adverse Reactions: Allergies Allergy/AdvReac Type Severity Reaction Status Date / Time No Known Drug Allergies Allergy Verified 03/10/18 18:14 Medications: Current Medications Acetaminophen (Tylenol) 650 mg PO Q4H PRN PRN Reason: Headache/Fever/Mild Pain (1-3) Acetaminophen (Tylenol) 650 mg AR Q4H PRN PRN Reason: Headache/Fever/Mild Pain (1-3) Aspirin (Ecotrin) 81 mg PO DAILY [facility] Last Admin: 11/18/18 11:52 Dose: 81 mg Atorvastatin Calcium (Lipitor) 80 mg PO HS [facility] Last Admin: 11/17/18 20:10 Dose: Not Given Clopidogrel Bisulfate (Plavix) 75 mg PO DAILY [facility] Last Admin: 11/18/18 11:51 Dose: 75 mg Dextrose/Water (Dextrose 50%) 25 gm SLOW IVP PRN PRN PRN Reason: Hypoglycemia Enoxaparin Sodium (Lovenox) 30 mg SC 0900 [facility] Last Admin: 11/18/18 11:52 Dose: 30 mg Famotidine (Pepcid) 20 mg SLOW IVP Q12HR [facility] Last Admin: 11/18/18 11:51 Dose: 20 mg Glucagon (Glucagon) 1 mg IM PRN PRN PRN Reason: Hypoglycemia Sodium Chloride (Normal Saline 0.9%) 1,000 mls @ 100 mls/hr IV .Q10H [facility] Last Admin: 11/18/18 06:28 Dose: Not Given Dextrose/Water (D5w) 1,000 mls @ 0 mls/hr IV .Q0M PRN PRN Reason: Hypoglycemia Norepinephrine Bitartrate (Levophed) 250 mls @ 0 mls/hr IVPB INF PRN; Protocol PRN Reason: Blood Pressure Potassium Chloride 40 meq/ (Sodium Chloride) 270 mls @ 135 mls/hr IVPB ASDIR PRN PRN Reason: FOR SERUM K+ 2.5 - 3.5 Potassium Chloride 40 meq/ (Device) 100 mls @ 50 mls/hr IVPB ASDIR PRN PRN Reason: FOR SERUM K+ 2.5 - 3.5 Magnesium Sulfate 1 gm/ Sodium (Chloride) 102 mls @ 102 mls/hr IV PRN PRN PRN Reason: MAG LEVEL 1.4 - 2.0 Magnesium Sulfate 2 gm/ Device 100 mls @ 100 mls/hr IVPB ASDIR PRN PRN Reason: MAGNESIUM < 1.4 Potassium Phosphate 9 mmol/ (Sodium Chloride) 103 mls @ 25.75 mls/hr IVPB ASDIR PRN PRN Reason: Phosphate 1.0-1.8 Potassium Phosphate 12 mmol/ (Sodium Chloride) 254 mls @ 63.5 mls/hr IV ASDIR PRN PRN Reason: Serum phosphate 0.5-0.9 Potassium Phosphate 15 mmol/ (Sodium Chloride) 255 mls @ 63.75 mls/hr IV ASDIR PRN PRN Reason: Serum Phos < 0.5 Levetiracetam 500 mg/ Device 100 mls @ 200 mls/hr IVPB BID [facility] Insulin Human Lispro (Humalog) 0 units SC .MODERATE SLIDING SC PRN PRN Reason: Moderate Correctional Scale Insulin Human Lispro (Humalog) 0 units SC .BEDTIME SLIDING SC PRN PRN Reason: Bedtime Correctional Scale Lorazepam (Ativan) 2 mg SLOW IVP Q15MIN PRN PRN Reason: Seizures Magnesium Oxide (Magnesium Oxide) 400 mg PO BIDPRN PRN PRN Reason: FOR SERUM MAG 1.4 - 2.0 Magnesium Oxide (Magnesium Oxide) 800 mg PO PRN PRN PRN Reason: FOR SERUM MAG < 1.4 Miscellaneous Medication (Ccu Electrolyte Replacement) 1 each FS ASDIR [facility] Miscellaneous Medication (Phos-Nak) 1 pkt PO TIDPRN PRN PRN Reason: FOR PHOS LEVEL 1.0 - 1.8 Miscellaneous Medication (Phos-Nak) 2 pkt PO TIDPRN PRN PRN Reason: FOR PHOS LEVEL 0.5 - 1.0 Ccu Electrolyte (Replacement Protocol) 0 each FS PRN PRN PRN Reason: FOR ELECTROLYTE REPLACEMENT Ondansetron HCl (Zofran Odt) 4 mg PO Q6H PRN PRN Reason: Nausea/Vomiting Ondansetron HCl (Zofran) 4 mg IVP Q6H PRN PRN Reason: Nausea/Vomiting Potassium Chloride (K-Dur) 40 meq PO ASDIR PRN PRN Reason: FOR SERUM K+ 2.5 - 3.5 Potassium Chloride (Klor-Con) 40 meq PER TUBE ASDIR PRN PRN Reason: FOR SERUM K+ 2.5-3.5 Senna/Docusate Sodium (Senokot S) 2 tab PO BID PRN PRN Reason: Constipation Sertraline HCl (Zoloft) 200 mg PO DAILY [facility] Last Admin: 11/18/18 11:51 Dose: 200 mg Sodium Chloride (Flush - Normal Saline) 10 ml IVF Q12HR [facility] Last Admin: 11/18/18 11:52 Dose: 10 ml Sodium Chloride (Flush - Normal Saline) 10 ml IVF PRN PRN PRN Reason: Saline Flush
--- NOTE | 2018-11-18 13:16 | RAD ---
LEFT ELBOW FOUR VIEWS: History: Left elbow pain. FINDINGS: The anterior elbow fat pad is very slightly prominent, there could be a small joint effusion. No frac ture, dislocation, or other acute process. Very mild degenerative changes. IMPRESSION: Very mild degenerative changes. Questionable possible very small joint effusion. If patient has persi stent or worsening pain or other symptoms to the elbow which do not resolve, short term follow up akira dy in 5-7 days should be considered. POS: TPC
[2018-11-18] MEDS: Acetaminophen 325 MG TAB PO PRN (18:19)
[2018-11-18] MEDS: Atorvastatin Calcium 40 MG TAB PO SCH (20:45)
[2018-11-19] MEDS: Sodium Chloride 0.9% 1,000 ML IV SCH (04:55)
[2018-11-19 07:36] LABS: Anion Gap 10 mmol/L (10-20); BUN (Urea Nitrogen) 8 mg/dL (8.4-25.7); Calc. Creatinine Clearance 94 mL/min (70-130); Calcium 8.2 mg/dL (7.8-10.44); Carbon Dioxide 24 mmol/L (23-31); Chloride 107 mmol/L (98-107); Estimated GFR-MDRD Greater than 90; Glucose 93 mg/dL (80-115); Potassium 3.8 mmol/L (3.5-5.1); Sodium 137 mmol/L (136-145)
--- NOTE | 2018-11-19 08:09 | PRG ---
DATE OF SERVICE: 11/19/2018 SUBJECTIVE: He is awake, alert, does not appear to be in any distress or pain. He has been weaned off Levophed as of 1:00 a.m. this morning. OBJECTIVE: VITAL SIGNS: On exam, his temperature is 98.2, pulse 62, blood pressure 123/66, O2 saturation 100%. A 24-hour intake 2922, output 2230. HEENT: He has a bruise over his left frontal area. NECK: No JVD. CHEST: Clear. CARDIAC: S1, S2. Regular. ABDOMEN: Soft, nontender. EXTREMITIES: No edema. LABORATORY DATA: Chemistry is pending. ASSESSMENT: 1. Seizure. 2. Fall. 3. Peripheral vascular disease. 4. Diabetes mellitus. 5. Status post respiratory failure, requiring mechanical ventilation. PLAN: Transfer to Stroke for further neurologic monitoring. He is currently on Keppra for seizure prophylaxis. We will follow up the chemistry from earlier today and recheck chemistry tomorrow. Job ID: [id number]
[2018-11-19] MEDS: Famotidine 20 MG TAB PO SCH ×2 (09:00→21:05)
[2018-11-19] MEDS: Aspirin 81 mg Enteric Coated Tablet PO SCH (09:58)
[2018-11-19] MEDS: Enoxaparin Sodium 30 MG/0.3 ML SYRINGE SC SCH (10:00)
[2018-11-19] MEDS: Clopidogrel Bisulfate 75 MG TAB PO SCH (10:00)
--- NOTE | 2018-11-19 13:15 | PDOC.PN ---
- Subjective Encounter Start Date: 11/19/18 Encounter Start Time: 10:20 Pt seen for followup re; seizure. Feels better. No chest pain, shortness of breath, fevers or chills. - Objective Resuscitation Status - Order Detail: 11/17/18 18:52 Resuscitation Status Routine Resuscitation Status: FULL: Full Resuscitation Discussed with: Son Vital Signs & Weight: Vital Signs (12 hours) Temp Pulse Ox 11/19/18 08:00 99.1 F 100 11/19/18 04:00 98.2 F Weight Weight 159 lb 9.835 oz Most Recent Monitor Data Heart Rate from ECG 69 NIBP 110/71 NIBP BP-Mean 84 Respiration from ECG 18 SpO2 100 I&O: 11/18/18 11/19/18 11/20/18 06:59 06:59 06:59 Intake Total 1888 2922.8 Output Total 1680 2230 165 Balance 208 692.8 -165 Result Diagrams: 11/18/18 06:00 11/19/18 05:07 Additional Labs: Accuchecks 11/19/18 11/18/18 11/18/18 06:09 20:51 18:20 POC Glucose 87 122 H 87 11/18/18 05:24 POC Glucose 75 Phys Exam - Physical Examination Constitutional: NAD HEENT: moist MMs Neck: supple Respiratory: clear to auscultation bilateral Cardiovascular: RRR Gastrointestinal: soft L elbow swelling Neurological: moves all 4 limbs Psychiatric: normal affect Dx/Plan (1) Seizure Code(s): R56.9 - UNSPECIFIED CONVULSIONS Status: Acute Comment: continue keppra (2) DMII (diabetes mellitus, type 2) Status: Chronic Comment: controlled (3) GERD (gastroesophageal reflux disease) Code(s): K21.9 - GASTRO-ESOPHAGEAL REFLUX DISEASE WITHOUT ESOPHAGITIS Status: Chronic Comment: stable (4) HTN (hypertension) Code(s): I10 - ESSENTIAL (PRIMARY) HYPERTENSION Status: Chronic Comment: controlled (5) Acute respiratory failure Code(s): J96.00 - ACUTE RESPIRATORY FAILURE, UNSP W HYPOXIA OR HYPERCAPNIA Status: Resolved - Plan * . Review of Systems - Review of Systems Respiratory: negative: Cough, Shortness of Breath, SOB with Excertion, Pleuritic Pain, Wheezing Cardiovascular: negative: chest pain, palpitations, orthopnea, paroxysmal nocturnal dyspnea, edema, light headedness - Medications/Allergies Allergies/Adverse Reactions: Allergies Allergy/AdvReac Type Severity Reaction Status Date / Time No Known Drug Allergies Allergy Verified 03/10/18 18:14 Medications: Current Medications Acetaminophen (Tylenol) 650 mg PO Q4H PRN PRN Reason: Headache/Fever/Mild Pain (1-3) Last Admin: 11/18/18 18:19 Dose: 650 mg Acetaminophen (Tylenol) 650 mg [place] Q4H PRN PRN Reason: Headache/Fever/Mild Pain (1-3) Aspirin (Ecotrin) 81 mg PO DAILY [facility] Last Admin: 11/19/18 09:58 Dose: 81 mg Atorvastatin Calcium (Lipitor) 80 mg PO HS [facility] Last Admin: 11/18/18 20:45 Dose: Not Given Clopidogrel Bisulfate (Plavix) 75 mg PO DAILY [facility] Last Admin: 11/19/18 10:00 Dose: 75 mg Dextrose/Water (Dextrose 50%) 25 gm SLOW IVP PRN PRN PRN Reason: Hypoglycemia Enoxaparin Sodium (Lovenox) 30 mg SC 0900 [facility] Last Admin: 11/19/18 10:00 Dose: 30 mg Famotidine (Pepcid) 20 mg PO BID [facility] Last Admin: 11/19/18 09:00 Dose: 20 mg Glucagon (Glucagon) 1 mg IM PRN PRN PRN Reason: Hypoglycemia Dextrose/Water (D5w) 1,000 mls @ 0 mls/hr IV .Q0M PRN PRN Reason: Hypoglycemia Magnesium Sulfate 1 gm/ Sodium (Chloride) 102 mls @ 102 mls/hr IV PRN PRN PRN Reason: MAG LEVEL 1.4 - 2.0 Magnesium Sulfate 2 gm/ Device 100 mls @ 100 mls/hr IVPB ASDIR PRN PRN Reason: MAGNESIUM < 1.4 Levetiracetam 500 mg/ Device 100 mls @ 200 mls/hr IVPB BID [facility] Last Admin: 11/19/18 10:01 Dose: 100 mls Insulin Human Lispro (Humalog) 0 units SC .MODERATE SLIDING SC PRN PRN Reason: Moderate Correctional Scale Insulin Human Lispro (Humalog) 0 units SC .BEDTIME SLIDING SC PRN PRN Reason: Bedtime Correctional Scale Lorazepam (Ativan) 2 mg SLOW IVP Q15MIN PRN PRN Reason: Seizures Ondansetron HCl (Zofran Odt) 4 mg PO Q6H PRN PRN Reason: Nausea/Vomiting Ondansetron HCl (Zofran) 4 mg IVP Q6H PRN PRN Reason: Nausea/Vomiting Senna/Docusate Sodium (Senokot S) 2 tab PO BID PRN PRN Reason: Constipation Sertraline HCl (Zoloft) 200 mg PO DAILY [facility] Last Admin: 11/19/18 10:00 Dose: 200 mg
[2018-11-19] MEDS: Atorvastatin Calcium 40 MG TAB PO SCH (21:06)
[2018-11-19] MEDS: Acetaminophen 325 MG TAB PO PRN (21:06)
--- NOTE | 2018-11-19 22:48 | CON ---
DATE OF CONSULTATION: 11/19/2018 CONSULTING PHYSICIAN: Hospitalist Service. IMPRESSION: 1. New onset seizures. 2. Prior stroke damage in the right parietal and occipital lobe resulting in some visual field deficit. 3. Diabetes. 4. Hypertension. 5. Peripheral vascular disease. PLAN: 1. Keppra 500 mg twice daily. 2. Aspirin and statin therapy for stroke prevention. HISTORY OF PRESENT ILLNESS: Mr. Elizabeth is a 68-year-old man with number of medical problems. He came in after a witnessed seizure. CT scan of the brain did not show any acute changes, but only quite a bit of chronic ischemic injury. He has been started on Keppra and has not had any further events. He has had some visual field deficits for some time now. His EKG showed atrial fibrillation. He does not report any recent seizure or stroke activity. PAST MEDICAL HISTORY: As listed above. ALLERGIES: NONE. SOCIAL HISTORY: No tobacco, alcohol use. FAMILY HISTORY: Noncontributory. MEDICATIONS: Medication list was reviewed. REVIEW OF SYSTEMS: A 10-system review of system was otherwise only notable for some headache following his fall and diminished vision. PHYSICAL EXAMINATION: GENERAL: He is a well-nourished elderly man in no distress. VITAL SIGNS: Stable. He has been afebrile. HEENT: Pupils are equal and reactive. Conjunctivae clear. Oropharynx clear. Cranium shows abrasion on the left forehead. NECK: Supple. No lymphadenopathy noted. EXTREMITIES: No cyanosis, clubbing, or edema. ABDOMEN: Soft and nontender. NEUROLOGIC: He is alert and cooperative. He follows commands appropriately. His speech is fluent with only very mild dysarthria at times. Cranial nerve exam showed what appeared to be a superior field cut by his description. His face appeared to be symmetric. Sensation was intact. Motor exam showed good antigravity strength in both arms. There was no fix or drift noted. He could elevate the left leg well against gravity. Right leg was amputated. Sensation was intact to light touch. Gait was not testable. SUMMARY: This is an elderly man with prior stroke damage now having secondary seizures. I agree with current treatment time. Job ID: [id number]
[2018-11-20 05:37] LABS: #Eosinphils 0.1 thou/uL (0.0-0.7); #Monocytes 0.6 thou/uL (0.11-0.59); #Neutrophils 5.7 thou/uL (1.40-6.50); %Basophils 0.2 % (0.0-1.0); %Eosinophils 1.7 % (0.0-10.0); %Lymphocytes 13.2 % (21.0-51.0); %Monocytes 8.1 % (0.0-10.0); %Neutrophils 76.8 % (42.0-75.0); Hemoglobin 14.8 g/dL (14.0-18.0); Mean Corpuscular HGB CONC 33.9 g/dL (32.0-36.0); Mean Corpuscular Hemoglobin 31.9 pg (27.0-31.0); Mean Corpuscular Volume 94.1 fL (78.0-98.0); Mean Platelet Volume 7.4 fL (7.4-10.4); Platelet Count 80 thou/uL (130-400); RBC Distribution Width 13.2 % (11.5-14.5); Red Blood Cell (RBC) Count 4.63 mill/uL (4.70-6.10); White Blood Cell (WBC) Count 7.5 thou/uL (4.8-10.8)
[2018-11-20 05:54] LABS: Anion Gap 12 mmol/L (10-20); BUN (Urea Nitrogen) 10 mg/dL (8.4-25.7); CK (CPK) 3673 U/L (30-200); Calc. Creatinine Clearance 86 mL/min (70-130); Calcium 8.9 mg/dL (7.8-10.44); Carbon Dioxide 23 mmol/L (23-31); Chloride 107 mmol/L (98-107); Estimated GFR-MDRD Greater than 90; Glucose 149 mg/dL (80-115); Potassium 3.7 mmol/L (3.5-5.1); Sodium 138 mmol/L (136-145)
[2018-11-20] MEDS: Acetaminophen 325 MG TAB PO PRN (09:48)
[2018-11-20] MEDS: Enoxaparin Sodium 30 MG/0.3 ML SYRINGE SC SCH (09:50)
[2018-11-20] MEDS: Aspirin 81 mg Enteric Coated Tablet PO SCH (09:51)
[2018-11-20] MEDS: Clopidogrel Bisulfate 75 MG TAB PO SCH (09:51)
[2018-11-20] MEDS: Famotidine 20 MG TAB PO SCH ×2 (09:51→21:40)
--- NOTE | 2018-11-20 09:52 | PDOC.PULPN ---
Progress Note: Subj/Obj - Subjective Date: 11/20/18 Time: 09:51 Narrative: Doing well with no specific complaints. - ROS All systems: reviewed and no additional remarkable complaints except as stated - Objective Allergies/Adverse Reactions: Allergies Allergy/AdvReac Type Severity Reaction Status Date / Time No Known Drug Allergies Allergy Verified 03/10/18 18:14 Vital Signs: Vital Signs Temp 97.9 F 11/20/18 07:54 Pulse 65 11/20/18 07:54 Resp 16 11/20/18 07:54 BP 137/87 11/20/18 07:54 Pulse Ox 96 11/20/18 07:54 Intake & Output 11/19/18 11/20/18 11/20/18 18:59 06:59 18:59 Intake Total 100 Output Total 1065 1400 Balance -1065 -1300 Intake: Intake, IV Amount 100 Output: Urine 900 Output, Crowe 165 1400 Other: Voiding Method Indwelling Catheter Diaper Progress Note: Exam - Physical Exam Constitutional: NAD HEENT: PERRLA Cardiovascular: RRR Respiratory: clear to auscultation bilaterally Gastrointestinal: soft Deviation from normal: Absent right leg Neurological: non-focal Lymphatic: no nodes Progress Note: Data - Labs Result Diagrams: 11/20/18 05:22 11/20/18 05:22 Progress Note: A/P - Problems (1) Rhabdomyolysis Current Visit: Yes Status: Acute Code(s): M62.82 - RHABDOMYOLYSIS (2) Seizure Current Visit: Yes Status: Acute Code(s): R56.9 - UNSPECIFIED CONVULSIONS (3) Acute respiratory failure Current Visit: Yes Status: Resolved Code(s): J96.00 - ACUTE RESPIRATORY FAILURE, UNSP W HYPOXIA OR HYPERCAPNIA - Plan Plan: the patient's CPK level remains high, and he probably needs to receive more hydration He has had no further seizure episodes His pulmonary status is fine status post extubation
[2018-11-20] MEDS: Sodium Chloride 0.45% 1,000 ML IV SCH (11:05)
--- NOTE | 2018-11-20 17:11 | PDOC.PN ---
- Subjective Encounter Start Date: 11/20/18 Encounter Start Time: 07:40 Pt seen for followup re: rhabdomyolysis. Denies any complaints. - Objective Resuscitation Status - Order Detail: 11/17/18 18:52 Resuscitation Status Routine Resuscitation Status: FULL: Full Resuscitation Discussed with: Son Vital Signs & Weight: Vital Signs (12 hours) Temp Pulse Resp BP Pulse Ox 11/20/18 15:54 97.5 F L 61 16 125/72 98 11/20/18 11:47 97.8 F 64 16 130/73 96 11/20/18 07:54 97.9 F 65 16 137/87 96 Weight Weight 159 lb 9.835 oz Most Recent Monitor Data Heart Rate from ECG 69 NIBP 110/71 NIBP BP-Mean 84 Respiration from ECG 18 SpO2 100 I&O: 11/19/18 11/20/18 11/21/18 06:59 06:59 06:59 Intake Total 2922.8 100 Output Total 2230 2465 Balance 692.8 -2365 Result Diagrams: 11/20/18 05:22 11/20/18 05:22 Additional Labs: Accuchecks 11/20/18 11/20/18 11/20/18 16:40 10:19 05:46 POC Glucose 131 H 138 H 131 H 11/19/18 21:18 POC Glucose 111 H Phys Exam - Physical Examination Constitutional: NAD HEENT: moist MMs Neck: supple Respiratory: clear to auscultation bilateral Cardiovascular: RRR Gastrointestinal: soft Neurological: moves all 4 limbs Psychiatric: normal affect Dx/Plan (1) Rhabdomyolysis Code(s): M62.82 - RHABDOMYOLYSIS Status: Acute Comment: continue IV fluids, follow CK (2) Seizure Code(s): R56.9 - UNSPECIFIED CONVULSIONS Status: Acute Comment: no recurrence, on keppra (3) DMII (diabetes mellitus, type 2) Status: Chronic Comment: controlled (4) GERD (gastroesophageal reflux disease) Code(s): K21.9 - GASTRO-ESOPHAGEAL REFLUX DISEASE WITHOUT ESOPHAGITIS Status: Chronic Comment: stable (5) HTN (hypertension) Code(s): I10 - ESSENTIAL (PRIMARY) HYPERTENSION Status: Chronic Comment: controlled (6) Acute respiratory failure Code(s): J96.00 - ACUTE RESPIRATORY FAILURE, UNSP W HYPOXIA OR HYPERCAPNIA Status: Resolved - Plan * . Review of Systems - Review of Systems Respiratory: negative: Cough, Shortness of Breath, SOB with Excertion, Pleuritic Pain, Wheezing Cardiovascular: negative: chest pain, palpitations, orthopnea, paroxysmal nocturnal dyspnea, edema, light headedness - Medications/Allergies Allergies/Adverse Reactions: Allergies Allergy/AdvReac Type Severity Reaction Status Date / Time No Known Drug Allergies Allergy Verified 03/10/18 18:14 Medications: Current Medications Acetaminophen (Tylenol) 650 mg PO Q4H PRN PRN Reason: Headache/Fever/Mild Pain (1-3) Last Admin: 11/20/18 09:48 Dose: 650 mg Acetaminophen (Tylenol) 650 mg [place] Q4H PRN PRN Reason: Headache/Fever/Mild Pain (1-3) Aspirin (Ecotrin) 81 mg PO DAILY [facility] Last Admin: 11/20/18 09:51 Dose: 81 mg Atorvastatin Calcium (Lipitor) 80 mg PO HS [facility] Last Admin: 11/19/18 21:06 Dose: 80 mg Clopidogrel Bisulfate (Plavix) 75 mg PO DAILY [facility] Last Admin: 11/20/18 09:51 Dose: 75 mg Dextrose/Water (Dextrose 50%) 25 gm SLOW IVP PRN PRN PRN Reason: Hypoglycemia Enoxaparin Sodium (Lovenox) 30 mg SC 0900 [facility] Last Admin: 11/20/18 09:50 Dose: Not Given Famotidine (Pepcid) 20 mg PO BID [facility] Last Admin: 11/20/18 09:51 Dose: 20 mg Glucagon (Glucagon) 1 mg IM PRN PRN PRN Reason: Hypoglycemia Dextrose/Water (D5w) 1,000 mls @ 0 mls/hr IV .Q0M PRN PRN Reason: Hypoglycemia Magnesium Sulfate 1 gm/ Sodium (Chloride) 102 mls @ 102 mls/hr IV PRN PRN PRN Reason: MAG LEVEL 1.4 - 2.0 Magnesium Sulfate 2 gm/ Device 100 mls @ 100 mls/hr IVPB ASDIR PRN PRN Reason: MAGNESIUM < 1.4 Levetiracetam 500 mg/ Device 100 mls @ 200 mls/hr IVPB BID [facility] Last Admin: 11/20/18 09:51 Dose: 100 mls Sodium Chloride (1/2 Normal Saline) 1,000 mls @ 75 mls/hr IV .[id number] [facility] Last Admin: 11/20/18 11:05 Dose: 1,000 mls Insulin Human Lispro (Humalog) 0 units SC .MODERATE SLIDING SC PRN PRN Reason: Moderate Correctional Scale Insulin Human Lispro (Humalog) 0 units SC .BEDTIME SLIDING SC PRN PRN Reason: Bedtime Correctional Scale Lorazepam (Ativan) 2 mg SLOW IVP Q15MIN PRN PRN Reason: Seizures Ondansetron HCl (Zofran Odt) 4 mg PO Q6H PRN PRN Reason: Nausea/Vomiting Ondansetron HCl (Zofran) 4 mg IVP Q6H PRN PRN Reason: Nausea/Vomiting Senna/Docusate Sodium (Senokot S) 2 tab PO BID PRN PRN Reason: Constipation Sertraline HCl (Zoloft) 200 mg PO DAILY [facility] Last Admin: 11/20/18 09:51 Dose: 200 mg Sodium Chloride (Flush - Normal Saline) 10 ml IVF Q12HR [facility] Last Admin: 11/20/18 09:50 Dose: 10 ml Sodium Chloride (Flush - Normal Saline) 10 ml IVF PRN PRN PRN Reason: Saline Flush
[2018-11-20] MEDS: Atorvastatin Calcium 40 MG TAB PO SCH (21:40)
[2018-11-21] MEDS: Sodium Chloride 0.45% 1,000 ML IV SCH ×2 (01:12→14:53)
[2018-11-21 07:07] LABS: #Eosinphils 0.1 thou/uL (0.0-0.7); #Lymphocytes 0.9 thou/uL (1.20-3.40); #Monocytes 0.6 thou/uL (0.11-0.59); #Neutrophils 5.7 thou/uL (1.40-6.50); %Basophils 0.2 % (0.0-1.0); %Eosinophils 1.8 % (0.0-10.0); %Lymphocytes 12.4 % (21.0-51.0); %Monocytes 7.8 % (0.0-10.0); %Neutrophils 77.8 % (42.0-75.0); Mean Corpuscular HGB CONC 32.8 g/dL (32.0-36.0); Mean Corpuscular Hemoglobin 30.6 pg (27.0-31.0); Mean Corpuscular Volume 93.2 fL (78.0-98.0); Mean Platelet Volume 7.5 fL (7.4-10.4); Platelet Count 96 thou/uL (130-400); RBC Distribution Width 13.4 % (11.5-14.5); Red Blood Cell (RBC) Count 5.23 mill/uL (4.70-6.10); White Blood Cell (WBC) Count 7.3 thou/uL (4.8-10.8)
[2018-11-21 07:08] LABS: Anion Gap 13 mmol/L (10-20); BUN (Urea Nitrogen) 8 mg/dL (8.4-25.7); CK (CPK) 2348 U/L (30-200); Calc. Creatinine Clearance 98 mL/min (70-130); Calcium 9.4 mg/dL (7.8-10.44); Carbon Dioxide 20 mmol/L (23-31); Chloride 106 mmol/L (98-107); Estimated GFR-MDRD Greater than 90; Glucose 129 mg/dL (80-115); Sodium 135 mmol/L (136-145)
[2018-11-21] MEDS: Clopidogrel Bisulfate 75 MG TAB PO SCH (08:10)
[2018-11-21] MEDS: Famotidine 20 MG TAB PO SCH ×2 (08:10→21:37)
[2018-11-21] MEDS: Aspirin 81 mg Enteric Coated Tablet PO SCH (08:10)
[2018-11-21] MEDS: Enoxaparin Sodium 30 MG/0.3 ML SYRINGE SC SCH (08:11)
--- NOTE | 2018-11-21 13:00 | PRG ---
DATE OF SERVICE: 11/21/2018 SUBJECTIVE: This morning, he is doing better. No shortness of breath. No further seizure activity. OBJECTIVE: VITAL SIGNS: Temperature is 97, and blood pressure 119/77. CHEST: No wheezing or crackles. CARDIAC: Normal S1 and S2. No gallops. ABDOMEN: No masses. LABORATORY DATA: IMPRESSION: 1. Status post rhabdomyolysis, slowly improving. 2. Encephalopathy. 3. Seizure disorder. PLAN: Continue supportive care, PT, slow hydration. Job ID: [id number]
--- NOTE | 2018-11-21 14:07 | PDOC.PN ---
- Subjective Encounter Start Date: 11/21/18 Encounter Start Time: 07:20 Pt seen for followup re: rhabdomyolysis. Denies chest pain, shortness of breath , fevers or chills. - Objective Resuscitation Status - Order Detail: 11/17/18 18:52 Resuscitation Status Routine Resuscitation Status: FULL: Full Resuscitation Discussed with: Son NINOSKA Reviewed: Yes Vital Signs & Weight: Vital Signs (12 hours) Temp Pulse Resp BP Pulse Ox 11/21/18 12:00 97.9 F 80 18 119/77 96 11/21/18 08:00 97.5 F L 77 24 H 119/75 97 11/21/18 04:00 98.1 F 74 16 103/78 96 Weight Weight 159 lb 9.835 oz Most Recent Monitor Data Heart Rate from ECG 69 NIBP 110/71 NIBP BP-Mean 84 Respiration from ECG 18 SpO2 100 I&O: 11/20/18 11/21/18 11/22/18 06:59 06:59 06:59 Intake Total 100 2037.5 Output Total 2465 Balance -2365 2037.5 Result Diagrams: 11/21/18 06:22 11/21/18 06:22 Additional Labs: Accuchecks 11/21/18 11/21/18 11/20/18 10:52 06:14 20:42 POC Glucose 206 H 133 H 160 H 11/20/18 11/20/18 16:40 10:19 POC Glucose 131 H 138 H EKG Reviewed by me: Yes (tele: NSR) Phys Exam - Physical Examination Constitutional: NAD HEENT: moist MMs Neck: supple Respiratory: clear to auscultation bilateral Cardiovascular: RRR Gastrointestinal: soft Musculoskeletal: no edema Neurological: moves all 4 limbs Psychiatric: normal affect Dx/Plan (1) Rhabdomyolysis Code(s): M62.82 - RHABDOMYOLYSIS Status: Acute Comment: continue IV fluids, CK is improving (2) Seizure Code(s): R56.9 - UNSPECIFIED CONVULSIONS Status: Acute Comment: continue keppra (3) DMII (diabetes mellitus, type 2) Status: Chronic Comment: controlled (4) GERD (gastroesophageal reflux disease) Code(s): K21.9 - GASTRO-ESOPHAGEAL REFLUX DISEASE WITHOUT ESOPHAGITIS Status: Chronic Comment: stable (5) HTN (hypertension) Code(s): I10 - ESSENTIAL (PRIMARY) HYPERTENSION Status: Chronic Comment: controlled (6) Acute respiratory failure Code(s): J96.00 - ACUTE RESPIRATORY FAILURE, UNSP W HYPOXIA OR HYPERCAPNIA Status: Resolved - Plan * . Review of Systems - Review of Systems Respiratory: negative: Cough, Shortness of Breath, SOB with Excertion, Pleuritic Pain, Wheezing Cardiovascular: negative: chest pain, palpitations, orthopnea, paroxysmal nocturnal dyspnea, edema, light headedness - Medications/Allergies Allergies/Adverse Reactions: Allergies Allergy/AdvReac Type Severity Reaction Status Date / Time No Known Drug Allergies Allergy Verified 03/10/18 18:14 Medications: Current Medications Acetaminophen (Tylenol) 650 mg PO Q4H PRN PRN Reason: Headache/Fever/Mild Pain (1-3) Last Admin: 11/20/18 09:48 Dose: 650 mg Acetaminophen (Tylenol) 650 mg NJ Q4H PRN PRN Reason: Headache/Fever/Mild Pain (1-3) Aspirin (Ecotrin) 81 mg PO DAILY [facility] Last Admin: 11/21/18 08:10 Dose: 81 mg Atorvastatin Calcium (Lipitor) 80 mg PO HS [facility] Last Admin: 11/20/18 21:40 Dose: 80 mg Clopidogrel Bisulfate (Plavix) 75 mg PO DAILY [facility] Last Admin: 11/21/18 08:10 Dose: 75 mg Dextrose/Water (Dextrose 50%) 25 gm SLOW IVP PRN PRN PRN Reason: Hypoglycemia Enoxaparin Sodium (Lovenox) 30 mg SC 0900 [facility] Last Admin: 11/21/18 08:11 Dose: Not Given Famotidine (Pepcid) 20 mg PO BID [facility] Last Admin: 11/21/18 08:10 Dose: 20 mg Glucagon (Glucagon) 1 mg IM PRN PRN PRN Reason: Hypoglycemia Dextrose/Water (D5w) 1,000 mls @ 0 mls/hr IV .Q0M PRN PRN Reason: Hypoglycemia Magnesium Sulfate 1 gm/ Sodium (Chloride) 102 mls @ 102 mls/hr IV PRN PRN PRN Reason: MAG LEVEL 1.4 - 2.0 Magnesium Sulfate 2 gm/ Device 100 mls @ 100 mls/hr IVPB ASDIR PRN PRN Reason: MAGNESIUM < 1.4 Levetiracetam 500 mg/ Device 100 mls @ 200 mls/hr IVPB BID [facility] Last Admin: 11/21/18 08:10 Dose: 100 mls Sodium Chloride (1/2 Normal Saline) 1,000 mls @ 75 mls/hr IV .[id number] [facility] Last Admin: 11/21/18 01:12 Dose: 1,000 mls Insulin Human Lispro (Humalog) 0 units SC .MODERATE SLIDING SC PRN PRN Reason: Moderate Correctional Scale Insulin Human Lispro (Humalog) 0 units SC .BEDTIME SLIDING SC PRN PRN Reason: Bedtime Correctional Scale Lorazepam (Ativan) 2 mg SLOW IVP Q15MIN PRN PRN Reason: Seizures Ondansetron HCl (Zofran Odt) 4 mg PO Q6H PRN PRN Reason: Nausea/Vomiting Ondansetron HCl (Zofran) 4 mg IVP Q6H PRN PRN Reason: Nausea/Vomiting Senna/Docusate Sodium (Senokot S) 2 tab PO BID PRN PRN Reason: Constipation Sertraline HCl (Zoloft) 200 mg PO DAILY [facility] Last Admin: 11/21/18 08:10 Dose: 200 mg Sodium Chloride (Flush - Normal Saline) 10 ml IVF Q12HR [facility] Last Admin: 11/21/18 08:11 Dose: Not Given Sodium Chloride (Flush - Normal Saline) 10 ml IVF PRN PRN PRN Reason: Saline Flush
--- NOTE | 2018-11-21 18:45 | EKG ---
Test Reason : Blood Pressure : / mmHG Vent. Rate : 140 BPM Atrial Rate : 140 BPM P-R Int : 000 ms QRS Dur : 122 ms QT Int : 340 ms P-R-T Axes : 000 -71 079 degrees QTc Int : 519 ms Atrial fibrillation with rapid ventricular response Left anterior fascicular block Nonspecific ST abnormality , probably digitalis effect Abnormal ECG Confirmed by SHILOH MARX ([id number]), proposal editor MERCED LOVE ([id number]) on 11/21/2018 6:44:38 PM Referred By: Confirmed By:SHILOH MARX
[2018-11-21] MEDS: Atorvastatin Calcium 40 MG TAB PO SCH (21:37)
[2018-11-21] MEDS: Acetaminophen 325 MG TAB PO PRN (21:38)
[2018-11-22 06:38] LABS: #Eosinphils 0.2 thou/uL (0.0-0.7); #Lymphocytes 1.3 thou/uL (1.20-3.40); #Monocytes 0.7 thou/uL (0.11-0.59); #Neutrophils 4.3 thou/uL (1.40-6.50); %Basophils 0.4 % (0.0-1.0); %Eosinophils 3.4 % (0.0-10.0); %Lymphocytes 20.4 % (21.0-51.0); %Monocytes 10.6 % (0.0-10.0); %Neutrophils 65.2 % (42.0-75.0); Hemoglobin 16.4 g/dL (14.0-18.0); Mean Corpuscular HGB CONC 33.6 g/dL (32.0-36.0); Mean Corpuscular Hemoglobin 31.3 pg (27.0-31.0); Mean Corpuscular Volume 93.4 fL (78.0-98.0); Mean Platelet Volume 7.5 fL (7.4-10.4); Platelet Count 106 thou/uL (130-400); RBC Distribution Width 13.3 % (11.5-14.5); Red Blood Cell (RBC) Count 5.23 mill/uL (4.70-6.10); White Blood Cell (WBC) Count 6.6 thou/uL (4.8-10.8)
[2018-11-22] MEDS: Sodium Chloride 0.45% 1,000 ML IV SCH ×2 (06:54→07:54)
[2018-11-22 06:57] LABS: Anion Gap 13 mmol/L (10-20); BUN (Urea Nitrogen) 10 mg/dL (8.4-25.7); CK (CPK) 807 U/L (30-200); Calc. Creatinine Clearance 83 mL/min (70-130); Calcium 9.4 mg/dL (7.8-10.44); Carbon Dioxide 24 mmol/L (23-31); Chloride 105 mmol/L (98-107); Estimated GFR-MDRD 88; Glucose 135 mg/dL (80-115); Potassium 3.9 mmol/L (3.5-5.1); Sodium 138 mmol/L (136-145)
[2018-11-22] MEDS: Famotidine 20 MG TAB PO SCH (09:20)
[2018-11-22] MEDS: Clopidogrel Bisulfate 75 MG TAB PO SCH (09:20)
[2018-11-22] MEDS: Aspirin 81 mg Enteric Coated Tablet PO SCH (09:20)
[2018-11-22] MEDS: Enoxaparin Sodium 30 MG/0.3 ML SYRINGE SC SCH (09:20)
--- NOTE | 2018-11-22 11:49 | DIS ---
DATE OF ADMISSION: 11/17/2018 DATE OF DISCHARGE: 11/22/2018 PRIMARY CARE PROVIDER: Brandi Leiva, DO DISCHARGE DIAGNOSES: 1. Seizure. 2. Rhabdomyolysis. CONDITION OF PATIENT ON THE DAY OF DISCHARGE: Stable. I assessed Mr. Elizabeth on the day of discharge. He denies any chest pain or shortness of breath. Vital signs are stable. S1 and S2 are heard, regular. Lungs are clear to auscultation bilaterally. CONSULTATIONS DURING THIS HOSPITALIZATION: Pulmonology, Dr. Derrick Rees. Neurology Dr. Reynoso. HOSPITAL COURSE: Mr. Elizabeth is a pleasant 68-year-old gentleman, admitted to [facility] on November 17, 2018, for new onset seizures. He was also found to have metabolic acidosis secondary to lactic acidosis from seizures. He was initially treated with antibiotics for possible infection. Antibiotics were discontinued subsequently. At the time of this dictation, final blood cultures are pending, but preliminary blood cultures are negative. He is advised to follow up with his primary care provider for final blood culture reports. He also had acute kidney injury and received intravenous fluids. At the time of admission, he was intubated. He was admitted to critical care unit. He was subsequently extubated and transferred to stroke floor. He was seen by Neurology Service, who started him on Keppra. There was no recurrence of seizures. He was found to have rhabdomyolysis with elevated CK, peaking at 3673 on November 20, 2018. It decreased to 807 by November 22, 2018. He is advised to have his CK level rechecked in 3 to 5 days' time. At the time of admission, he had creatinine of 1.34. On the day of discharge, creatinine is 0.86. LABORATORY DATA: On the day of discharge, he has white count 6600, hemoglobin 16.4, platelet count 106,000, normal electrolytes and normal creatinine. DISCHARGE MEDICATIONS: In addition to the pre-admission home medications as dictated by Dr. Nieto on his history and physical note dated November 17, 2018, Mr. Elizabeth is being discharge back to [facility] on Keppra 500 mg 2 times a day and Pepcid 20 mg 2 times a day. Many thanks for allowing me to participate in your patient's care. Please feel free to contact me with any questions or concerns. DISCHARGE DESTINATION: [facility], from where the patient was admitted to the hospital. TOTAL AMOUNT OF TIME SPENT COORDINATING THIS DISCHARGE: 33 minutes. Job ID: [id number] MTDD
[2018-11-22 11:50] VITALS: BP 115/73; TEMP 97.7
[2018-11-22] MEDS: Acetaminophen 325 MG TAB PO PRN (11:54)
[2018-11-22] MEDS ORDERED: levETIRAcetam 500 MG TAB PO SCH (21:00)
== END 2018-11-22 14:25 | DRG 100 ==
LOC: ERS 15:39 → CCU 17:41 → 2SE 11-19 11:26
PROVIDERS: ADMIT Emergency Medicine; ATTEND Emergency Medicine
PROC: 5A1935Z Respiratory Ventilation, Less than 24 Consecutive Hours (ICD-10-PCS; principal; 2018-11-17)
PROC: 0BH17EZ Insertion of Endotracheal Airway into Trachea, Via Natural or Artificial Opening (ICD-10-PCS; 2018-11-17)
DX: R56.9 Unspecified convulsions (principal); J96.00 Acute respiratory failure, unspecified whether with hypoxia or hypercapnia; E87.2 Acidosis; R65.10 Systemic inflammatory response syndrome (SIRS) of non-infectious origin without acute organ dysfunction; N17.9 Acute kidney failure, unspecified; M62.82 Rhabdomyolysis; E11.51 Type 2 diabetes mellitus with diabetic peripheral angiopathy without gangrene; I10 Essential (primary) hypertension; K21.9 Gastro-esophageal reflux disease without esophagitis; N40.0 Benign prostatic hyperplasia without lower urinary tract symptoms; H90.5 Unspecified sensorineural hearing loss; G89.29 Other chronic pain; M54.5 Low back pain; F41.9 Anxiety disorder, unspecified; F32.9 Major depressive disorder, single episode, unspecified; I69.398 Other sequelae of cerebral infarction; H53.8 Other visual disturbances; Z99.3 Dependence on wheelchair; Z87.891 Personal history of nicotine dependence; Z79.82 Long term (current) use of aspirin; Z79.899 Other long term (current) drug therapy; Z79.4 Long term (current) use of insulin; Z89.611 Acquired absence of right leg above knee
CPT/HCPCS: 36415; 36416; 70450; 71045; 72125; 80048; 80053; 80306; 80307; 81003; 81015; 82550; 82805; 83605; 83880; 84484; 85025; 85610; 85730; 87040; 87086; 93005; 94002; 94003; J0692; J1650; J1953; J1956; J2250; J2704; J3010; J3370; J7050; J7070; S0028

== ENCOUNTER 2019-04-09 07:50 | Outpatient (CLI) | payer MEDICARE, MEDICAID ==
--- NOTE | 2019-04-09 09:08 | CT ---
EXAM: CT angiogram abdomen with IV contrast and 3-D reconstructions PROVIDED CLINICAL HISTORY: Mid abdominal pain for past 6 months. COMPARISON: Noncontrast CT abdomen pelvis in [address] abdomen and pelvis on 08/24/2017. FINDINGS: Atherosclerotic plaque and calcifications are seen in the abdominal aorta and involving the iliac art eries. No aneurysmal dilatation or dissection is seen involving the abdominal aorta. There is mild atherosclerotic irregularity involving the origins and proximal celiac and superior mesenteric arteri es, but no significant stenosis is appreciated within these arterial vessels. The origin of the SOTERO is not well seen, but there is probable focal severe narrowing at the origin of the inferior mesenter ic artery. There is atherosclerotic calcifications and plaque in the abdominal aorta this level as well as involving the most proximal inferior mesenteric artery limiting evaluation. There are 2 right renal arteries visualized with tiny accessory right renal artery present. The origi n of the accessory right renal artery is difficult to delineate. However, the main right renal artery demonstrates atherosclerotic plaque and calcifications with severe focal narrowing involving t he proximal right renal artery. There is at least mild narrowing involving the proximal left renal artery including the origin. There is motion artifact at each lung base in addition to mild volume loss. The liver, spleen, pancre as, and bilateral adrenal glands demonstrate a normal CT appearance for arterial phase of imaging. Subcentimeter too small to characterize hypodense lesions are seen in each kidney. Loops of small bowel are normal in caliber, and there is no bowel wall thickening appreciated. A retr ocecal appendix is visualized and normal in caliber. No free fluid, fluid collection, or lymphadenopathy is seen in the abdomen. Degenerative changes are seen in the spine. There is evidence of posterior fusion at the L4-5 and L5- S1 levels with pedicular screws and posterior rods transfixing these levels. There is grade 1 anterolisthesis of L4 on L5. IMPRESSION: 1. Diffuse atherosclerotic plaque and calcifications involving the abdominal aorta and iliac arteries without aneurysmal dilatation or aortic dissection seen. 2. Mild atherosclerotic irregularity involving the celiac and superior mesenteric arteries without si gnificant focal stenosis appreciated. However, there is probable severe narrowing involving the origin and proximal inferior mesenteric artery which is not well delineated due to vascular calcifica tions and plaque in the abdominal aorta at this level. 3. Severe focal area narrowing involving the proximal right renal artery with mild degree of narrowin g involving the proximal left renal artery. There is an accessory right renal artery present which is small in caliber. 4. Subcentimeter too small to characterize hypodense lesions in each kidney.
[2019-04-09] MEDS ORDERED: Iopamidol 370 76% 100 ML VIAL ONE (11:13)
== END 2019-04-09 07:51 | disposition home or self-care (01) ==
LOC: CT 07:50
PROVIDERS: ATTEND Internal Medicine Gastroenterology
DX: I73.9 Peripheral vascular disease, unspecified (principal); E11.9 Type 2 diabetes mellitus without complications; R10.9 Unspecified abdominal pain; G89.29 Other chronic pain; R63.4 Abnormal weight loss; R11.2 Nausea with vomiting, unspecified; I70.0 Atherosclerosis of aorta; I70.1 Atherosclerosis of renal artery; R93.421 Abnormal radiologic findings on diagnostic imaging of right kidney; R93.422 Abnormal radiologic findings on diagnostic imaging of left kidney
CPT/HCPCS: 74175; 82565

== ENCOUNTER 2019-07-31 19:29 | Emergency (ER) | payer MEDICARE, MEDICAID ==
--- NOTE | 2019-07-31 21:17 | RAD ---
EXAM: 2 views of the left hip HISTORY: Left hip pain COMPARISON: None FINDINGS: 2 views of the left hip shows no evidence of acute fracture or dislocation. No degenerative changes are seen. No soft tissue swelling is present. Surgical clips are seen in the left groin. IMPRESSION: No evidence of acute osseous abnormality.
--- NOTE | 2019-07-31 21:18 | RAD ---
Exam: Single view of the pelvis HISTORY: Pelvic and hip pain COMPARISON: 05/02/2017 FINDINGS: A single view the pelvis shows no evidence of acute fracture or dislocation. Mild degenerat eri changes seen in both hips. Surgical clips are seen in the inguinal regions. Post surgical changes are seen in the spine. IMPRESSION: No evidence of acute osseous abnormality.
--- NOTE | 2019-07-31 21:19 | RAD ---
EXAM: 4 views of the left knee HISTORY: Knee pain after fall COMPARISON: None FINDINGS: No knee effusion is seen. There is no evidence of acute fracture or dislocation. No signifi cant degenerative changes are seen. No soft tissue swelling is present. Vascular calcifications are seen. A stent is seen in the popliteal artery. IMPRESSION: No evidence of acute osseous abnormality.
== END 2019-07-31 21:49 | disposition home or self-care (01) ==
LOC: ERS 19:29
DX: S80.02XA Contusion of left knee, initial encounter (principal); S70.02XA Contusion of left hip, initial encounter; E78.5 Hyperlipidemia, unspecified; F17.210 Nicotine dependence, cigarettes, uncomplicated; E11.9 Type 2 diabetes mellitus without complications; Z79.4 Long term (current) use of insulin; Z79.899 Other long term (current) drug therapy; W18.30XA Fall on same level, unspecified, initial encounter
CPT/HCPCS: 72170

== ENCOUNTER 2019-08-13 11:41 | Emergency (ER) | payer MEDICARE, MEDICAID ==
[2019-08-13] MEDS ORDERED: Ketorolac Tromethamine 30 MG/ML VIAL ONE (12:31)
--- NOTE | 2019-08-13 13:21 | RAD ---
XR Cerv Sp Ap Lat STANDARD History: Acute on chronic neck pain Comparison: None. Findings: No acute fracture or malalignment. Advanced atherosclerotic plaque along the left carotid v asculature. Lung apices are clear. Open-mouth odontoid view is normal. Mandible is intact. Evaluation of C5-C7 can be performed on the lateral radiograph due to the shadows from the overlying shoulders. Moderate narrowing of the C3-4 and C4-5 with disc spaces. Impression: [id number] spondylosis, incompletely evaluated due to shadowing from overlying shou lders. No displaced fracture appreciated of the upper cervical spine.
== END 2019-08-13 15:53 ==
LOC: ERS 11:41
DX: M54.2 Cervicalgia (principal); G89.29 Other chronic pain; E78.5 Hyperlipidemia, unspecified; E11.9 Type 2 diabetes mellitus without complications; N40.0 Benign prostatic hyperplasia without lower urinary tract symptoms; F32.9 Major depressive disorder, single episode, unspecified; F17.210 Nicotine dependence, cigarettes, uncomplicated; Z79.899 Other long term (current) drug therapy; Z79.82 Long term (current) use of aspirin; Z86.73 Personal history of transient ischemic attack (TIA), and cerebral infarction without residual deficits; Z79.4 Long term (current) use of insulin
CPT/HCPCS: 72040; 96361; 96374; J1885

== ENCOUNTER 2022-04-11 18:33 | Inpatient (IN) | payer OTHER ==
[2022-04-11 18:59] LABS: #Basophils 0.1 thou/uL (0.0-0.2); #Eosinphils 0.2 thou/uL (0.0-0.7); #Lymphocytes 2.9 thou/uL (1.20-3.40); #Monocytes 0.7 thou/uL (0.11-0.59); #Neutrophils 4.2 thou/uL (1.40-6.50); %Basophils 0.9 % (0.0-1.0); %Eosinophils 2.7 % (0.0-10.0); %Lymphocytes 35.6 % (21.0-51.0); %Monocytes 9.1 % (0.0-10.0); %Neutrophils 51.8 % (42.0-75.0); Hemoglobin 16.3 g/dL (14.0-18.0); Mean Corpuscular HGB CONC 32.6 g/dL (32.0-36.0); Mean Corpuscular Hemoglobin 31.9 pg (27.0-31.0); Mean Corpuscular Volume 97.9 fL (78.0-98.0); Mean Platelet Volume 7.7 fL (7.4-10.4); Platelet Count 152 thou/uL (130-400); RBC Distribution Width 12.6 % (11.5-14.5); Red Blood Cell (RBC) Count 5.11 mill/uL (4.70-6.10)
[2022-04-11 19:14] LABS: ALT (SGPT) 11 U/L (8-55); AST (SGOT) 19 U/L (5-34); Albumin 4.3 g/dL (3.4-4.8); Alkaline Phosphatase 91 U/L (40-110); Anion Gap 19 mmol/L (10-20); BUN (Urea Nitrogen) 17 mg/dL (8.4-25.7); Bilirubin, Total 0.8 mg/dL (0.2-1.2); Calc. Creatinine Clearance 0 mL/min (70-130); Carbon Dioxide 23 mmol/L (23-31); Chloride 96 mmol/L (98-107); Estimated GFR 71; Globulin 3.6 g/dL (2.4-3.5); Glucose 111 mg/dL (83-110); Protein, Total 7.9 g/dL (5.8-8.1); Sodium 134 mmol/L (136-145)
[2022-04-11] MEDS ORDERED: Aspirin Chewable 81 MG TAB ONE (20:28)
[2022-04-11] MEDS ORDERED: Acetaminophen 325 MG TAB PO PRN (22:15)
[2022-04-11] MEDS ORDERED: Ondansetron PF 4 MG/2 ML Vial IVP PRN (22:15)
[2022-04-11] MEDS ORDERED: Ondansetron ODT 4 MG TAB SL PRN (22:15)
[2022-04-11 23:28] VITALS: BMI 22.9
[2022-04-12] MEDS ORDERED: HumaLOG 300 UNITS/3 ML VIAL SC PRN (04:36)
[2022-04-12] MEDS ORDERED: Dextrose 5% in Water 1,000 ML IV PRN (04:36)
[2022-04-12] MEDS ORDERED: Dextrose 50% Abboject 50 ML SYRINGE SLOW IVP PRN (04:36)
[2022-04-12 05:59] LABS: #Eosinphils 0.2 thou/uL (0.0-0.7); #Lymphocytes 3.1 thou/uL (1.20-3.40); #Monocytes 0.7 thou/uL (0.11-0.59); #Neutrophils 3.4 thou/uL (1.40-6.50); %Basophils 0.4 % (0.0-1.0); %Eosinophils 3.1 % (0.0-10.0); %Lymphocytes 41.6 % (21.0-51.0); %Monocytes 9.4 % (0.0-10.0); %Neutrophils 45.6 % (42.0-75.0); Hemoglobin 16.7 g/dL (14.0-18.0); Mean Corpuscular Volume 96.9 fL (78.0-98.0); Mean Platelet Volume 7.3 fL (7.4-10.4); Platelet Count 150 thou/uL (130-400); RBC Distribution Width 12.5 % (11.5-14.5); Red Blood Cell (RBC) Count 5.23 mill/uL (4.70-6.10); White Blood Cell (WBC) Count 7.4 thou/uL (4.8-10.8)
[2022-04-12 06:26] LABS: Anion Gap 20 mmol/L (10-20); BUN (Urea Nitrogen) 16 mg/dL (8.4-25.7); Calc. Creatinine Clearance 68 mL/min (70-130); Calcium 9.6 mg/dL (7.8-10.44); Carbon Dioxide 22 mmol/L (23-31); Cardiac Risk 2.9 (Less than 4.5); Chloride 98 mmol/L (98-107); Cholesterol 112 mg/dl (< 200 Desired); Estimated GFR 85; Glucose 65 mg/dL (83-110); HDL Cholesterol 39 mg/dL (>60 Neg Risk); LDL Cholesterol, Calculated 36 mg/dL; Potassium 3.9 mmol/L (3.5-5.1); Sodium 136 mmol/L (136-145); Triglycerides 187 mg/dL (Less than 150)
[2022-04-12] MEDS ORDERED: Lorazepam 2 MG/ML VIAL SLOW IVP PRN (09:48)
[2022-04-12] MEDS: Insulin Glargine 30 UNITS/0.3 ML VIAL SC SCH (09:58)
[2022-04-12] MEDS: levETIRAcetam 500 MG TAB PO SCH ×2 (11:43→20:23)
[2022-04-12] MEDS: Aspirin 81 mg Enteric Coated Tablet PO SCH (11:43)
[2022-04-12] MEDS: Enoxaparin Sodium 40 MG/0.4 ML SYRINGE SC SCH (11:43)
[2022-04-12] MEDS ORDERED: Clopidogrel Bisulfate 75 MG TAB PO SCH (14:45)
[2022-04-12] MEDS ORDERED: Atorvastatin Calcium 40 MG TAB PO SCH (21:00)
[2022-04-12] MEDS ORDERED: Insulin Glargine 30 UNITS/0.3 ML VIAL SC SCH (21:00)
[2022-04-13] MEDS ORDERED: Clopidogrel Bisulfate 75 MG TAB PO SCH (09:00)
[2022-04-13] MEDS: Aspirin 81 mg Enteric Coated Tablet PO SCH (09:25)
[2022-04-13] MEDS: Enoxaparin Sodium 40 MG/0.4 ML SYRINGE SC SCH (09:25)
[2022-04-13] MEDS: levETIRAcetam 500 MG TAB PO SCH (09:26)
[2022-04-13] MEDS: Insulin Glargine 30 UNITS/0.3 ML VIAL SC SCH (11:14)
[2022-04-13] MEDS ORDERED: Acetaminophen 325 MG TAB PO PRN (13:25)
[2022-04-13 16:34] VITALS: BP 121/75; TEMP 97.3
== END 2022-04-13 17:28 | DRG 69 ==
LOC: ERS 18:33 → NEURO 21:52 → OBSVTOIN 04-12 14:34
PROVIDERS: ADMIT Internal Medicine; ATTEND Internal Medicine
DX: G45.9 Transient cerebral ischemic attack, unspecified (principal); G81.94 Hemiplegia, unspecified affecting left nondominant side; R47.01 Aphasia; Z20.822 Contact with and (suspected) exposure to COVID-19; F41.9 Anxiety disorder, unspecified; F32.9 Major depressive disorder, single episode, unspecified; N40.0 Benign prostatic hyperplasia without lower urinary tract symptoms; M54.9 Dorsalgia, unspecified; I10 Essential (primary) hypertension; E11.51 Type 2 diabetes mellitus with diabetic peripheral angiopathy without gangrene; R47.81 Slurred speech; G89.29 Other chronic pain; R29.810 Facial weakness; R47.1 Dysarthria and anarthria; E78.5 Hyperlipidemia, unspecified; R29.704 NIHSS score 4; G40.909 Epilepsy, unspecified, not intractable, without status epilepticus; K21.9 Gastro-esophageal reflux disease without esophagitis; Z86.73 Personal history of transient ischemic attack (TIA), and cerebral infarction without residual deficits; Z79.82 Long term (current) use of aspirin; Z79.4 Long term (current) use of insulin; Z79.84 Long term (current) use of oral hypoglycemic drugs; Z79.899 Other long term (current) drug therapy; Z79.02 Long term (current) use of antithrombotics/antiplatelets; Z90.49 Acquired absence of other specified parts of digestive tract; Z89.611 Acquired absence of right leg above knee; Z87.891 Personal history of nicotine dependence; Z83.3 Family history of diabetes mellitus; Z82.49 Family history of ischemic heart disease and other diseases of the circulatory system; Z80.9 Family history of malignant neoplasm, unspecified
CPT/HCPCS: 36415; 36416; 70450; 70551; 72125; 80048; 80053; 80061; 84484; 85025; 93005; 93306; 93880; 96372; G0378; J1650; J1815; U0003; U0005

== ENCOUNTER 2022-04-14 11:50 | Emergency (ER) | payer OTHER ==
[2022-04-14] MEDS ORDERED: Ondansetron PF 4 MG/2 ML Vial ONE (12:14)
[2022-04-14] MEDS ORDERED: Morphine 2 MG/ML VIAL ONE (12:14)
[2022-04-14 12:36] LABS: #Lymphocytes 1.5 thou/uL (1.20-3.40); #Monocytes 0.6 thou/uL (0.11-0.59); #Neutrophils 5.5 thou/uL (1.40-6.50); %Basophils 0.2 % (0.0-1.0); %Eosinophils 0.3 % (0.0-10.0); %Lymphocytes 19.8 % (21.0-51.0); %Monocytes 7.6 % (0.0-10.0); Hemoglobin 18.1 g/dL (14.0-18.0); Mean Corpuscular HGB CONC 33.4 g/dL (32.0-36.0); Mean Corpuscular Hemoglobin 32.2 pg (27.0-31.0); Mean Corpuscular Volume 96.5 fL (78.0-98.0); Mean Platelet Volume 7.2 fL (7.4-10.4); Platelet Count 161 thou/uL (130-400); RBC Distribution Width 12.7 % (11.5-14.5); White Blood Cell (WBC) Count 7.6 thou/uL (4.8-10.8)
[2022-04-14 12:51] LABS: ALT (SGPT) 13 U/L (8-55); AST (SGOT) 22 U/L (5-34); Albumin 4.3 g/dL (3.4-4.8); Alkaline Phosphatase 92 U/L (40-110); Anion Gap 21 mmol/L (10-20); BUN (Urea Nitrogen) 12 mg/dL (8.4-25.7); CK (CPK) 101 U/L (30-200); Calc. Creatinine Clearance 0 mL/min (70-130); Calcium 10.2 mg/dL (7.8-10.44); Carbon Dioxide 22 mmol/L (23-31); Chloride 100 mmol/L (98-107); Estimated GFR 68; Globulin 3.5 g/dL (2.4-3.5); Glucose 132 mg/dL (83-110); Lipase 17 U/L (8-78); Potassium 3.7 mmol/L (3.5-5.1); Protein, Total 7.8 g/dL (5.8-8.1); Sodium 139 mmol/L (136-145)
[2022-04-14 14:36] LABS: Bilirubin 1+ (Negative); Blood, Urine Negative (Negative); Clarity Clear (Clear); Glucose, Urine (Dipstick) Normal (Negative); Ketone, Urine 20 mg/dL (Negative); Leukocyte Negative Leu/uL (Negative); Nitrite Negative (Negative); Protein, Urine (Dipstick) 50 mg/dL (Neg-Trace); Specific Gravity, Urine 1.023 (1.002-1.036); pH, Urine 5.5 (5.0-9.0)
[2022-04-14 15:00] LABS: Bacteria/HPF 1+ HPF (None Seen); RBC/HPF None Seen HPF (0-3); Squamous Epithelial None Seen HPF (0-3); WBC/HPF 0-3 HPF (0-3)
== END 2022-04-14 16:41 | disposition home or self-care (01) ==
LOC: ERS 11:50
DX: E86.0 Dehydration (principal); R10.9 Unspecified abdominal pain; E78.5 Hyperlipidemia, unspecified; E11.9 Type 2 diabetes mellitus without complications; N40.0 Benign prostatic hyperplasia without lower urinary tract symptoms; Z87.891 Personal history of nicotine dependence; Z86.73 Personal history of transient ischemic attack (TIA), and cerebral infarction without residual deficits
CPT/HCPCS: 74177; 80053; 82550; 83605; 83690; 84484; 85025; 93005; 96361; 96374; 96375; 99284; J2270; 36415; 81003; 81015; J2405; Q9966

== ENCOUNTER 2022-06-30 21:11 | Inpatient (IN) | payer OTHER ==
[2022-06-30] MEDS ORDERED: Ondansetron ODT 4 MG TAB SL PRN (23:30)
[2022-06-30] MEDS ORDERED: Ondansetron PF 4 MG/2 ML Vial IVP PRN (23:30)
[2022-06-30] MEDS ORDERED: Acetaminophen 325 MG TAB PO PRN (23:30)
[2022-06-30 23:32] VITALS: BMI 26.3
[2022-07-01] MEDS ORDERED: Morphine 2 MG/ML VIAL SLOW IVP SCH (00:30)
[2022-07-01] MEDS ORDERED: HumaLOG 300 UNITS/3 ML VIAL SC PRN ×2 (00:36)
[2022-07-01] MEDS ORDERED: Dextrose 5% in Water 1,000 ML IV PRN (00:36)
[2022-07-01] MEDS ORDERED: Bisacodyl 5 MG TAB PO PRN (00:36)
[2022-07-01] MEDS ORDERED: Dextrose 50% Abboject 50 ML SYRINGE SLOW IVP PRN (00:36)
[2022-07-01] MEDS ORDERED: Senokot S 8.6-50 MG TAB PO PRN (00:36)
[2022-07-01 01:22] LABS: Magnesium 1.4 mg/dL (1.6-2.6)
[2022-07-01] MEDS: Sodium Chloride 0.9% 1,000 ML IV SCH ×2 (01:29→16:23)
[2022-07-01] MEDS ORDERED: Electrolyte Replacement Protocol 1 EACH FS SCH (02:00)
[2022-07-01] MEDS ORDERED: Magnesium 2 GM/50 ML(in water) 2 GM in Premix Bag 1 BAG IVPB SCH (02:00)
[2022-07-01 05:25] LABS: #Eosinphils 0.2 thou/uL (0.0-0.7); #Lymphocytes 2.2 thou/uL (1.20-3.40); #Monocytes 0.7 thou/uL (0.11-0.59); #Neutrophils 2.6 thou/uL (1.40-6.50); %Basophils 0.5 % (0.0-1.0); %Lymphocytes 38.5 % (21.0-51.0); %Monocytes 11.5 % (0.0-10.0); %Neutrophils 45.5 % (42.0-75.0); Mean Corpuscular HGB CONC 34.8 g/dL (32.0-36.0); Mean Corpuscular Hemoglobin 33.5 pg (27.0-31.0); Mean Corpuscular Volume 96.3 fL (78.0-98.0); Platelet Count 128 thou/uL (130-400); RBC Distribution Width 13.6 % (11.5-14.5); Red Blood Cell (RBC) Count 4.17 mill/uL (4.70-6.10); White Blood Cell (WBC) Count 5.8 thou/uL (4.8-10.8)
[2022-07-01 05:49] LABS: ALT (SGPT) 17 U/L (8-55); AST (SGOT) 17 U/L (5-34); Albumin 3.9 g/dL (3.4-4.8); Alkaline Phosphatase 73 U/L (40-110); Anion Gap 12 mmol/L (10-20); BUN (Urea Nitrogen) 27 mg/dL (8.4-25.7); Bilirubin, Total 0.8 mg/dL (0.2-1.2); Calc. Creatinine Clearance 61 mL/min (70-130); Calcium 9.1 mg/dL (7.8-10.44); Carbon Dioxide 28 mmol/L (23-31); Chloride 101 mmol/L (98-107); Estimated GFR 69; Globulin 2.7 g/dL (2.4-3.5); Glucose 86 mg/dL (83-110); Magnesium 1.9 mg/dL (1.6-2.6); Potassium 3.7 mmol/L (3.5-5.1); Protein, Total 6.6 g/dL (5.8-8.1); Sodium 137 mmol/L (136-145)
[2022-07-01] MEDS: Enoxaparin Sodium 40 MG/0.4 ML SYRINGE SC SCH (11:18)
[2022-07-01] MEDS: Aspirin 81 mg Enteric Coated Tablet PO SCH (11:20)
[2022-07-01] MEDS: metFORMIN 500 MG TAB PO SCH ×2 (11:20→20:42)
[2022-07-01] MEDS: Clopidogrel Bisulfate 75 MG TAB PO SCH (11:20)
[2022-07-01] MEDS: levETIRAcetam 500 MG TAB PO SCH ×2 (11:48→20:43)
[2022-07-01] MEDS ORDERED: Iopamidol-370 76% 500 ML 1 ML ONE (15:06)
[2022-07-01] MEDS: Senokot S 8.6-50 MG TAB PO SCH (20:43)
[2022-07-01] MEDS ORDERED: Atorvastatin Calcium 10 MG TAB PO SCH (21:00)
[2022-07-02] MEDS: Sodium Chloride 0.9% 1,000 ML IV SCH (05:21)
[2022-07-02 06:14] LABS: Magnesium 1.2 mg/dL (1.6-2.6)
[2022-07-02] MEDS ORDERED: metFORMIN 500 MG TAB PO SCH (08:00)
[2022-07-02] MEDS ORDERED: Magnesium Sulfate In Water 4 GM in Premix Bag 1 BAG IVPB SCH (08:00)
[2022-07-02] MEDS: levETIRAcetam 500 MG TAB PO SCH (08:59)
[2022-07-02] MEDS: Enoxaparin Sodium 40 MG/0.4 ML SYRINGE SC SCH (08:59)
[2022-07-02] MEDS ORDERED: Polyethylene Glycol 3350 17 GM Packet PO SCH (09:00)
[2022-07-02] MEDS: Aspirin 81 mg Enteric Coated Tablet PO SCH (09:00)
[2022-07-02] MEDS: Clopidogrel Bisulfate 75 MG TAB PO SCH (09:00)
[2022-07-02] MEDS: Senokot S 8.6-50 MG TAB PO SCH (09:01)
[2022-07-02 12:15] VITALS: BP 135/63; TEMP 100
== END 2022-07-02 16:37 | DRG 71 ==
LOC: NEURO 23:12 → OBSVTOIN 07-01 15:18
PROVIDERS: ADMIT Internal Medicine; ATTEND Internal Medicine
DX: G93.41 Metabolic encephalopathy (principal); N17.9 Acute kidney failure, unspecified; Z20.822 Contact with and (suspected) exposure to COVID-19; K59.01 Slow transit constipation; I10 Essential (primary) hypertension; E78.5 Hyperlipidemia, unspecified; E11.51 Type 2 diabetes mellitus with diabetic peripheral angiopathy without gangrene; F32.A Depression, unspecified; H91.90 Unspecified hearing loss, unspecified ear; R47.1 Dysarthria and anarthria; N40.0 Benign prostatic hyperplasia without lower urinary tract symptoms; R56.9 Unspecified convulsions; Z87.891 Personal history of nicotine dependence; Z79.4 Long term (current) use of insulin; Z86.73 Personal history of transient ischemic attack (TIA), and cerebral infarction without residual deficits; Z79.82 Long term (current) use of aspirin; Z79.84 Long term (current) use of oral hypoglycemic drugs; Z79.899 Other long term (current) drug therapy; Z79.02 Long term (current) use of antithrombotics/antiplatelets; Z90.49 Acquired absence of other specified parts of digestive tract; Z83.3 Family history of diabetes mellitus; Z82.49 Family history of ischemic heart disease and other diseases of the circulatory system; Z89.511 Acquired absence of right leg below knee
CPT/HCPCS: 36415; 36416; 74177; 80053; 80177; 83735; 84146; 84443; 85025; 95706; 95819; 95957; 96365; 96372; 96375; G0378; J1650; J2270; J3475; J7050; Q9967; U0003; U0005

== ENCOUNTER 2022-12-06 14:40 | Observation (INO) | payer OTHER ==
[2022-12-06] MEDS ORDERED: Acetaminophen 500 MG TAB ONE ×2 (16:00→16:01)
[2022-12-06 17:49] LABS: #Eosinphils 0.1 thou/uL (0.0-0.7); #Lymphocytes 1.9 thou/uL (1.20-3.40); #Monocytes 0.4 thou/uL (0.11-0.59); %Basophils 0.3 % (0.0-1.0); %Eosinophils 2.2 % (0.0-10.0); %Lymphocytes 28.9 % (21.0-51.0); %Monocytes 6.3 % (0.0-10.0); %Neutrophils 62.3 % (42.0-75.0); Hemoglobin 15.8 g/dL (14.0-18.0); Mean Corpuscular Hemoglobin 31.4 pg (27.0-31.0); Mean Corpuscular Volume 95.1 fl (78.0-98.0); Mean Platelet Volume 7.4 fL (7.4-10.4); Platelet Count 129 10x3/uL (130-400); RBC Distribution Width 13.8 % (11.5-14.5); Red Blood Cell (RBC) Count 5.05 mill/uL (4.70-6.10); White Blood Cell (WBC) Count 6.4 10x3/uL (4.8-10.8)
[2022-12-06 18:11] LABS: ALT (SGPT) 21 U/L (8-55); AST (SGOT) 24 U/L (5-34); Albumin 4.2 g/dL (3.4-4.8); Alkaline Phosphatase 73 U/L (40-110); Anion Gap 16 mmol/L (10-20); BUN (Urea Nitrogen) 11 mg/dL (8.4-25.7); Bilirubin, Total 0.5 mg/dL (0.2-1.2); Calc. Creatinine Clearance 0 mL/min (70-130); Calcium 8.9 mg/dL (7.8-10.44); Carbon Dioxide 25 mmol/L (23-31); Chloride 100 mmol/L (98-107); Estimated GFR 92; Globulin 2.7 g/dL (2.4-3.5); Glucose 135 mg/dL (83-110); Potassium 3.9 mmol/L (3.5-5.1); Protein, Total 6.9 g/dL (5.8-8.1); Sodium 137 mmol/L (136-145)
[2022-12-06 18:15] LABS: Prothrombin Time 13.8 sec (12.0-14.7)
[2022-12-06 18:16] LABS: PTT 30.4 sec (22.9-36.1)
[2022-12-06] MEDS ORDERED: Ondansetron PF 4 MG/2 ML Vial IVP PRN (19:40)
[2022-12-06] MEDS ORDERED: HYDROcodone/Acetaminophen 5/325 mg Tablet PO PRN (19:40)
[2022-12-06] MEDS: Gabapentin 300 MG CAP PO SCH (21:53)
[2022-12-06] MEDS: Atorvastatin Calcium 40 MG TAB PO SCH (21:54)
[2022-12-06] MEDS: Famotidine 20 MG TAB PO SCH (21:54)
[2022-12-06] MEDS ORDERED: Dextrose 50% Abboject 50 ML SYRINGE SLOW IVP PRN (22:22)
[2022-12-06] MEDS ORDERED: Insulin Regular 300 UNITS/3 ML VIAL SC PRN ×2 (22:22)
[2022-12-06] MEDS ORDERED: Dextrose 5% in Water 1,000 ML IV PRN (22:22)
[2022-12-06 23:35] VITALS: BMI 22.6
[2022-12-07 07:03] LABS: #Eosinphils 0.1 thou/uL (0.0-0.7); #Lymphocytes 1.9 thou/uL (1.20-3.40); #Monocytes 0.8 thou/uL (0.11-0.59); #Neutrophils 5.8 thou/uL (1.40-6.50); %Basophils 0.6 % (0.0-1.0); %Eosinophils 1.7 % (0.0-10.0); %Lymphocytes 21.5 % (21.0-51.0); %Monocytes 8.7 % (0.0-10.0); %Neutrophils 67.5 % (42.0-75.0); Hemoglobin 15.7 g/dL (14.0-18.0); Mean Corpuscular HGB CONC 33.6 g/dL (32.0-36.0); Mean Corpuscular Hemoglobin 31.9 pg (27.0-31.0); Mean Corpuscular Volume 94.9 fl (78.0-98.0); Mean Platelet Volume 7.5 fL (7.4-10.4); Platelet Count 136 10x3/uL (130-400); RBC Distribution Width 13.8 % (11.5-14.5); Red Blood Cell (RBC) Count 4.92 mill/uL (4.70-6.10); White Blood Cell (WBC) Count 8.6 10x3/uL (4.8-10.8)
[2022-12-07 07:18] LABS: Anion Gap 13 mmol/L (10-20); BUN (Urea Nitrogen) 12 mg/dL (8.4-25.7); Calc. Creatinine Clearance 64 mL/min (70-130); Calcium 9.1 mg/dL (7.8-10.44); Carbon Dioxide 29 mmol/L (23-31); Chloride 101 mmol/L (98-107); Estimated GFR 80; Glucose 99 mg/dL (83-110); Potassium 3.6 mmol/L (3.5-5.1); Sodium 139 mmol/L (136-145)
[2022-12-07] MEDS: Gabapentin 300 MG CAP PO SCH ×3 (09:05→20:17)
[2022-12-07] MEDS: Famotidine 20 MG TAB PO SCH ×2 (09:05→20:16)
[2022-12-07] MEDS: Ascorbic Acid 500 mg Chewable Tablet PO SCH (09:05)
[2022-12-07] MEDS: Furosemide 40 MG TAB PO SCH (09:05)
[2022-12-07] MEDS: Insulin Glargine 30 UNITS/0.3 ML VIAL SC SCH (09:05)
[2022-12-07] MEDS: Acetaminophen/Codeine 30-300mg Tablet PO PRN (14:09)
[2022-12-07 19:01] LABS: Troponin I 0.016 ng/mL (< 0.028)
[2022-12-07] MEDS: Atorvastatin Calcium 40 MG TAB PO SCH (20:16)
[2022-12-08] MEDS: Gabapentin 300 MG CAP PO SCH ×2 (07:46→15:03)
[2022-12-08] MEDS: Furosemide 40 MG TAB PO SCH (07:46)
[2022-12-08] MEDS: Ascorbic Acid 500 mg Chewable Tablet PO SCH (07:46)
[2022-12-08] MEDS: Acetaminophen/Codeine 30-300mg Tablet PO PRN (07:47)
[2022-12-08] MEDS: Famotidine 20 MG TAB PO SCH (07:47)
[2022-12-08] MEDS: Insulin Glargine 30 UNITS/0.3 ML VIAL SC SCH (07:48)
[2022-12-08] MEDS ORDERED: Apixaban 5 MG TAB PO SCH (16:15)
[2022-12-08 16:34] VITALS: BP 131/79; TEMP 97.6
== END 2022-12-08 16:53 ==
LOC: ERS 14:40 → T4-B 19:17
PROVIDERS: ADMIT Internal Medicine; ATTEND Internal Medicine
DX: I82.432 Acute embolism and thrombosis of left popliteal vein (principal); G40.909 Epilepsy, unspecified, not intractable, without status epilepticus; E11.51 Type 2 diabetes mellitus with diabetic peripheral angiopathy without gangrene; I10 Essential (primary) hypertension; E78.5 Hyperlipidemia, unspecified; K21.9 Gastro-esophageal reflux disease without esophagitis; N40.0 Benign prostatic hyperplasia without lower urinary tract symptoms; I87.2 Venous insufficiency (chronic) (peripheral); F17.200 Nicotine dependence, unspecified, uncomplicated; Z86.73 Personal history of transient ischemic attack (TIA), and cerebral infarction without residual deficits; Z79.2 Long term (current) use of antibiotics; Z79.4 Long term (current) use of insulin; Z79.82 Long term (current) use of aspirin; Z79.84 Long term (current) use of oral hypoglycemic drugs; Z79.899 Other long term (current) drug therapy; Z89.611 Acquired absence of right leg above knee; Z95.820 Peripheral vascular angioplasty status with implants and grafts; Z20.822 Contact with and (suspected) exposure to COVID-19
CPT/HCPCS: 71045; 80048; 80053; 82962 ×3; 84484 ×2; 85025 ×2; 85610; 85730; 93005 ×2; 99285; U0003; U0005; 36415; 36416; 93010; G0378; J1815

== ENCOUNTER 2025-06-07 05:48 | Day surgery (SDC) | payer OTHER, MEDICAID ==
[2025-06-06 16:03] VITALS: BMI 28.3
[2025-06-07] MEDS ORDERED: Lidocaine 1% PF 5 ML VIAL ONE (07:29)
[2025-06-07] MEDS ORDERED: PROPOFOL 20 ML ONE ×2 (07:29→07:50)
== END 2025-06-07 08:49 | disposition home or self-care (01) ==
LOC: SDC 05:48
PROVIDERS: ATTEND Internal Medicine Gastroenterology
PROC: 0DB68ZX Excision of Stomach, Via Natural or Artificial Opening Endoscopic, Diagnostic (ICD-10-PCS; principal; 2025-06-07)
DX: K29.50 Unspecified chronic gastritis without bleeding (principal); K25.9 Gastric ulcer, unspecified as acute or chronic, without hemorrhage or perforation; K21.9 Gastro-esophageal reflux disease without esophagitis; E11.9 Type 2 diabetes mellitus without complications; E78.00 Pure hypercholesterolemia, unspecified; G40.909 Epilepsy, unspecified, not intractable, without status epilepticus; F17.210 Nicotine dependence, cigarettes, uncomplicated; Z86.73 Personal history of transient ischemic attack (TIA), and cerebral infarction without residual deficits; Z86.718 Personal history of other venous thrombosis and embolism; Z89.611 Acquired absence of right leg above knee; Z88.8 Allergy status to other drugs, medicaments and biological substances; Z79.4 Long term (current) use of insulin; Z79.01 Long term (current) use of anticoagulants; Z79.84 Long term (current) use of oral hypoglycemic drugs; Z79.82 Long term (current) use of aspirin; Z79.899 Other long term (current) drug therapy
CPT/HCPCS: 43239; 82962; J2704; 36416; 88305; 88312; 88341; 88342

== ENCOUNTER 2025-09-27 06:15 | Day surgery (SDC) | payer OTHER, MEDICAID ==
[2025-09-27] MEDS ORDERED: PROPOFOL 20 ML ONE (07:45)
[2025-09-27] MEDS ORDERED: Lidocaine 1% PF 5 ML VIAL ONE (07:45)
[2025-09-27] MEDS ORDERED: PROPOFOL 200 MG/20 ML VIAL ONE (08:00)
== END 2025-09-27 09:04 | disposition home or self-care (01) ==
LOC: SDC 06:15
PROVIDERS: ATTEND Internal Medicine Gastroenterology
PROC: 0DB68ZX Excision of Stomach, Via Natural or Artificial Opening Endoscopic, Diagnostic (ICD-10-PCS; principal; 2025-09-27)
DX: K25.9 Gastric ulcer, unspecified as acute or chronic, without hemorrhage or perforation (principal); E11.9 Type 2 diabetes mellitus without complications; D50.9 Iron deficiency anemia, unspecified; K21.9 Gastro-esophageal reflux disease without esophagitis; E78.00 Pure hypercholesterolemia, unspecified; Z79.84 Long term (current) use of oral hypoglycemic drugs; Z79.899 Other long term (current) drug therapy; Z88.8 Allergy status to other drugs, medicaments and biological substances; F17.210 Nicotine dependence, cigarettes, uncomplicated
CPT/HCPCS: 43239; 82962; J2704; 36416; 88305; 88313; 88341; 88342